=== PATIENT | male | born 1940 | race Caucasian/White ===

== ENCOUNTER 2018-12-09 09:10 | Emergency (ER) | payer OTHER ==
--- OUTSIDE RECORDS SUMMARY | 2018-12-09 09:12 | XMS REPORT | Clinical Summary ---
:1940 Author Organization [facility] Address [address] [place] [address] Care Team Providers Name Role Phone John Araujo MD Primary Care Provider Allergies Active Allergy Reactions Severity Noted Date Comments Codeine 11/06/2018 Medications Medication Sig Dispensed Refills Start Date End Date Status atorvastatin (LIPITOR) 20 Take 20 mg by 3 08/12/2018 Active MG tablet mouth daily. clonIDINE HCl (CATAPRES) 0 11/06/2018 Active 0.3 MG tablet fluticasone (FLONASE) 50 SPRAY 2 SPRAY BY 3 09/15/2018 Active mcg/actuation nasal spray INTRANASAL ROUTE EVERY DAY IN EACH NOSTRIL BREO ELLIPTA 100-25 USE 1 PUFF BY 3 10/17/2018 Active mcg/dose blister with MOUTH ONCE DAILY device powder for DIRECTED inhalation folic acid (FOLVITE) 1 MG Take 1 mg by 5 08/12/2018 Active tablet mouth daily. hydroCHLOROthiazide 0 11/01/2018 Active (HYDRODIURIL) 25 MG tablet montelukast (SINGULAIR) 0 11/02/2018 Active 10 mg tablet pantoprazole (PROTONIX) Take 40 mg by 3 08/17/2018 Active 40 MG EC tablet mouth daily. ranitidine (ZANTAC) 150 0 11/01/2018 Active MG capsule predniSONE (DELTASONE) 10 PLEASE SEE 0 11/01/2018 Active mg tablet ATTACHED FOR DETAILED DIRECTIONS sertraline (ZOLOFT) 25 MG 0 11/06/2018 Active tablet tamsulosin (FLOMAX) 0.4 Take by mouth 3 09/24/2018 Active mg capsule daily. irbesartan (AVAPRO) 300 0 11/01/2018 Active MG tablet azelastine 0.15 % (205.5 SPRAY 1 SPRAY BY 3 09/04/2018 Active mcg) spray,non-aerosol INTRANASAL ROUTE 2 TIMES EVERY DAY IN EACH NOSTRIL levocetirizine (XYZAL) 5 Take 5 mg by 0 Active MG tablet mouth every evening. Active Problems Problem Noted Date Acute right-sided low back pain without sciatica 11/06/2018 Encounters Date Type Specialty Care Team Description 11/06/2018 Office Visit Orthopedic Surgery Gianni Paiz Acute right- sided romeo HERNANDEZ MD back pain without sciatica (Primary Dx) after 12/08/2017 Family History Medical History Relation Name Comments Cancer Father Heart disease Mother Relation Name Status Comments Father Mother Social History Tobacco Use Types Packs/Day Years Used Date Former Smoker Sex Assigned at Date Recorded Not on file Job Start Date Occupation Industry Not on file Not on file Not on file Travel History Travel Start Travel End No recent travel history available. Last Filed Vital Signs Vital Sign Reading Time Taken Blood Pressure 166/98 11/06/2018 1:34 PM [facility] Pulse 64 11/06/2018 1:34 PM [employer] [employer] [facility] Temperature - - Respiratory Rate - - Oxygen Saturation - - Inhaled Oxygen Concentration - - Weight 83.9 kg (185 lb) 11/06/2018 1:34 PM [employer] [employer] [facility] Height 172.7 cm (5' 8") 11/06/2018 1:34 PM [employer] [employer] [facility] Body Mass Index 28.13 11/06/2018 1:34 PM [facility] Plan of Treatment Date Type Specialty Care Team Description 12/10/2018 Office Visit Orthopedic Surgery Gianni Paiz III, MD [address] [address] Health Maintenance Due Date Last Done Comments SHINGLES VACCINES (1 of 2) 1989 PNEUMOCOCCAL POLYSACCHARIDE VACCINE AGE 65 AND OVER 2004 PNEUMOCOCCAL-13 2004 INFLUENZA VACCINE 05/23/2018 Procedures Procedure Name Priority Date/Time Associated Diagnosis Comments XR LUMBAR SPINE Routine 11/06/2018 1:51 PM Acute right-sided Results for this COMPLETE 4+ VW [facility] [employer] [facility] low back pain procedure are in without sciatica the results section. after 12/08/2017 Results XR Lumbar Spine Complete 4+ Vw (11/06/2018 1:51 PM [facility] [employer] [facility]) Narrative Performed At Lumbar spine series with flexion-extension: Advanced lumbar spondylosis [facility] with loss of disc height at L3-4, L4-5 and, L5-S1.Spine stable on flexion-extension Performing Organization Address City/State/Zipcode Phone Number [facility] [address] [place] [address] after 12/08/2017 Insurance Payer Benefit Plan / Group Subscriber ID Type Phone Address AETNA MEDICARE AETNA MEDICARE HMO/PPO [facility] xxxxxxxx HMO Advance Directives Patient has advance care planning documents on file. For more information, please contact:Alan Cuellar[address] [place] [address]
--- OUTSIDE RECORDS SUMMARY | 2018-12-09 09:12 | XMS REPORT ---
:1940 [facility] Address [address] [place] [address] Dr. Knight [address] [place] [id number] Care Team Providers Name Role Phone Unavailable Unavailable Unavailable Problems This patient has no known problems. Allergies, Adverse Reactions, Alerts This patient has no known allergies or adverse reactions. Medications This patient has no known medications.
[2018-12-09 10:04] LABS: Urine Blood NEGATIVE (NEG); Urine Glucose NEGATIVE (NEG)
[2018-12-09 10:05] LABS: Urine Protein 1+ (NEG)
[2018-12-09] MEDS ORDERED: KETOROLAC 30 MG/ML INJ ONE (10:20)
[2018-12-09] MEDS ORDERED: CYCLOBENZAPRINE 10 MG TAB ONE (10:21)
[2018-12-09] MEDS ORDERED: HYDROCODONE/APAP 7.5/325 MG TAB ONE (10:21)
--- NOTE | 2018-12-09 11:01 | EDPHYS ---
Physician Documentation [facility] Name: Garth Sarkar Age: 78 yrs Sex: Male : 1940 Arrival Date: 12/09/2018 Time: 09:12 Bed 20 Private MD: ED Physician Frank Martinez HPI: 12/09 10:15 This 78 yrs old Male presents to ER via Wheelchair with complaints of Back cp Pain. 10:15 The patient presents with pain and spasm. The symptoms are located in the low back. cp Onset: The symptoms/episode began/occurred yesterday. Associated signs and symptoms: Pertinent negatives: abdominal pain, chest pain, constipation, fever, incontinence, numbness, tingling, urinary retention, weakness. 10:15 The pain does not radiate. The problem was sustained from unknown cause. Patient cp reports he has not taken blood pressure medications this morning. 10:15 Patient reports he has been taking prescribed tramadol and prednisone for pain. cp Historical: - Allergies: :31 Codeine; la1 - PMHx: 09:31 Hypertension; OA; la1 - Immunization history:: Adult Immunizations up to date. - Social history:: Smoking status: Patient/guardian denies using tobacco. - Ebola Screening: : No symptoms or risks identified at this time. ROS: 10:20 Constitutional: Negative for body aches, chills, fever, poor PO intake. cp 10:20 Eyes: Negative for injury, pain, redness, and discharge. cp 10:20 ENT: Negative for drainage from ear(s), ear pain, sore throat, difficulty swallowing, cp difficulty handling secretions. 10:20 Cardiovascular: Negative for chest pain, edema, palpitations. 10:20 Respiratory: Negative for cough, shortness of breath, wheezing. 10:20 Back: Positive for pain at rest, pain with movement, of the lumbar area, spasm. 10:20 Abdomen/GI: Negative for abdominal pain, nausea, vomiting, and diarrhea, constipation, cp black/tarry stool, rectal bleeding, bowel incontinence. 10:20 : Negative for urinary symptoms, urinary frequency, hematuria, bladder incontinence, testicular pain 10:20 Skin: Negative for cellulitis, rash. 10:20 Neuro: Negative for altered mental status, headache, numbness, tingling, weakness. 10:20 All other systems are negative. Exam: 10:25 Constitutional: The patient appears in no acute distress, alert, awake, cp non-diaphoretic, non-toxic, well developed, well nourished. 10:25 Head/Face: Normocephalic, atraumatic. cp 10:25 Eyes: Periorbital structures: appear normal, Conjunctiva: normal, no exudate, no cp injection, Sclera: no appreciated abnormality, Lids and lashes: appear normal, bilaterally. 10:25 ENT: External ear(s): are unremarkable, Nose: is normal, Mouth: Lips: moist, Oral mucosa: pink and intact, moist, Posterior pharynx: is normal, airway is patent, no erythema, no exudate. 10:25 Neck: ROM/movement: is normal, is supple, without pain, no range of motions limitations, no nuchal rigidity. 10:25 Chest/axilla: Inspection: normal, Palpation: is normal, no crepitus, no tenderness. 10:25 Cardiovascular: Rate: bradycardic, Rhythm: regular, Edema: is not appreciated. 10:25 Respiratory: the patient does not display signs of respiratory distress, Respirations: cp normal, no use of accessory muscles, no retractions, no splinting, no tachypnea. 10:25 Abdomen/GI: Inspection: abdomen appears normal, Bowel sounds: active, all quadrants, Palpation: abdomen is soft and non-tender, in all quadrants, voluntary guarding, is not appreciated, involuntary guarding, is not appreciated. 10:25 Back: pain, that is moderate, of the right mid back and right low back, ROM is painful, vertebral tenderness, is not appreciated, Straight leg raises: of both lower extremities does not illicit pain. 10:25 Musculoskeletal/extremity: Exam is negative for decreased range of motion, deformity, injury. 10:25 Skin: cellulitis, is not appreciated, no rash present. 10:25 Neuro: Orientation: to person, place \T\ time. Mentation: is normal, Cerebellar function: is grossly normal, Motor: moves all fours, strength is normal, Sensation: is normal, Gait: is steady, Deep tendon reflexes are 2+ (normal) in the right patellar, right Achilles, left patellar and left Achilles. Vital Signs: 09:35 Pulse 57; Resp 18; Temp 98.7; Pulse Ox 98% on R/A; Weight 83.91 kg; Height 5 ft. 8 in. la1 (172.72 cm); 09:35 BP 210 / 77; la1 10:00 BP 201 / 110; Pulse 78; Resp 18; Pulse Ox 99% on R/A; Pain 9/10; em 09:35 Body Mass Index 28.13 (83.91 kg, 172.72 cm) la1 10:00 has not taken morning medications em MDM: 09:47 Patient medically screened. cp 10:00 Differential diagnosis: Cholelithiasis chronic back pain, Pyelonephritis ruptured disc, cp Ureterolithiasis. 11:00 Data reviewed: vital signs, nurses notes, lab test result(s). cp 11:00 Counseling: I had a detailed discussion with the patient and/or guardian regarding: the cp historical points, exam findings, and any diagnostic results supporting the discharge/admit diagnosis, the presence of at least one elevated blood pressure reading (>120/80) during this emergency department visit, lab results, to return to the emergency department if symptoms worsen or persist or if there are any questions or concerns that arise at home. 11:00 Response to treatment: the patient's symptoms have markedly improved after treatment, cp and as a result, I will discharge patient. 11:00 ED course: VS noted. Discussed elevated blood pressure. Patient declines treatment for cp blood pressure in Ed and reports will take prescribed blood pressure meds when he gets home. Pain markedly improved. 12/09 09:53 Order name: Urine Dipstick--Ancillary (enter results); Complete Time: 10:57 ms 12/09 09:53 Order name: Urine Dipstick-Ancillary (obtain specimen); Complete Time: 09:56 cp Administered Medications: 10:14 Drug: TORadol 60 mg Route: IM; Site: right gluteus; em 11:00 Follow up: Response: No adverse reaction; Pain is decreased em 10:19 Drug: Flexeril 10 mg Route: PO; em 11:00 Follow up: Response: No adverse reaction; Pain is decreased em 10:19 Drug: Hydrocodone-Acetaminophen (7.5 mg-325 mg) 1 tabs Route: PO; em 11:00 Follow up: Response: No adverse reaction; Pain is decreased em Disposition: 17:42 Co-signature as Attending Physician, Frank Martinez MD. gs Disposition: 12/09/18 11:01 Discharged to Home. Impression: Low back pain, Hypertensive heart disease. - Condition is Stable. - Discharge Instructions: Back Pain, Adult, Back Exercises, [id number]. - Prescriptions for Diclofenac Sodium 75 mg Oral Tablet, Delayed Release (E.C.) - take 1 tablet by ORAL route 2 times per day; 20 tablet. orphenadrine citrate 100 mg Oral Tablet Sustained Release - take 1 tablet by ORAL route 2 times per day As needed; 20 tablet. - Medication Reconciliation Form, Thank You Letter, Antibiotic Education, Prescription Opioid Use form. - Follow up: Private Physician; When: 1 - 2 days; Reason: Recheck today's complaints. - Problem is an acute exacerbation. - Symptoms have improved. Signatures: Dispatcher [employer] EDRegan Brown LVN [employer] Brandon Barnhart RN RN la1 Vinny Kinney PA PA cp Starr, Gregory, MD MD Corrections: (The following items were deleted from the chart) 11:21 11:01 12/09/2018 11:01 Discharged to Home. Impression: Low back pain; Hypertensive em heart disease. Condition is Stable. Forms are Medication Reconciliation Form, Thank You Letter, Antibiotic Education, Prescription Opioid Use. Follow up: Private Physician; When: 1 - 2 days; Reason: Recheck today's complaints. Problem is an acute exacerbation. Symptoms have improved. cp
--- NOTE | 2018-12-09 11:01 | ER ---
Nurse's Notes [facility] Name: Garth Sarkar Age: 78 yrs Sex: Male : 1940 Arrival Date: 12/09/2018 Time: 09:12 Bed 20 Private MD: Diagnosis: Low back pain;Hypertensive heart disease Presentation: 12/09 09:31 Presenting complaint: Patient states: I have been having muscle spasms at home in my la1 back since yesterday, I have been on prednisone and tramamdol. I have been having trouble walking due to the pain. Transition of care: patient was not received from another setting of care. Onset of symptoms was December 09, 2018. Risk Assessment: Do you want to hurt yourself or someone else? Patient reports no desire to harm self or others. Initial Sepsis Screen: Does the patient meet any 2 criteria? No. Patient's initial sepsis screen is negative. Does the patient have a suspected source of infection? No. Patient's initial sepsis screen is negative. Care prior to arrival: None. 09:31 Method Of Arrival: Wheelchair la1 09:31 Acuity: OSBALDO 3 la1 Historical: - Allergies: 09:31 Codeine; la1 - PMHx: 09:31 Hypertension; OA; la1 - Immunization history:: Adult Immunizations up to date. - Social history:: Smoking status: Patient/guardian denies using tobacco. - Ebola Screening: : No symptoms or risks identified at this time. Screenin:00 Abuse screen: Denies threats or abuse. Nutritional screening: No deficits noted. em Tuberculosis screening: No symptoms or risk factors identified. Fall Risk None identified. Assessment: 10:00 General: Appears in no apparent distress. uncomfortable, Behavior is calm, cooperative. em Pain: Complains of pain in lumbar area Pain currently is 9 out of 10 on a pain scale. Quality of pain is described as crampy. Neuro: Level of Consciousness is awake, alert, obeys commands, Oriented to person, place, time, situation. Respiratory: Airway is patent Respiratory effort is even, unlabored, Respiratory pattern is regular, symmetrical. GI: Abdomen is flat, Patient currently denies nausea, vomiting. : Urine is clear, Denies burning with urination. Derm: Skin is intact, is healthy with good turgor, Skin is pink, warm \T\ dry. Musculoskeletal: Circulation, motion, and sensation intact. Capillary refill < 3 seconds, Denies numbness in, right leg and left leg. 10:15 Reassessment: Patient appears in no apparent distress at this time. I agree with above iw assessment by Regan Hidalgo LVN. 11:00 Reassessment: Patient appears in no apparent distress at this time. Patient and/or em family updated on plan of care and expected duration. Pain level reassessed. Patient is alert, oriented x 3, equal unlabored respirations, skin warm/dry/pink. cramping has diminished, rates pain 5/10 Patient states feeling better. Patient states symptoms have improved. Vital Signs: 09:35 Pulse 57; Resp 18; Temp 98.7; Pulse Ox 98% on R/A; Weight 83.91 kg; Height 5 ft. 8 in. la1 (172.72 cm); 09:35 BP 210 / 77; la1 10:00 BP 201 / 110; Pulse 78; Resp 18; Pulse Ox 99% on R/A; Pain 9/10; em 09:35 Body Mass Index 28.13 (83.91 kg, 172.72 cm) la1 10:00 has not taken morning medications em ED Course: 09:12 Patient arrived in ED. rg4 09:33 Triage completed. la1 09:33 Arm band placed on left wrist. la1 09:42 Regan Hidalgo LVN is Primary Nurse. em 09:46 Vinny Kinney PA is PHCP. cp 09:46 Frank Martinez MD is Attending Physician. cp 09:56 Urine Dipstick--Ancillary (enter results) Sent. mh5 10:00 Patient has correct armband on for positive identification. Call light in reach. Side em rails up X2. Adult w/ patient. Pulse ox on. NIBP on. 11:17 No provider procedures requiring assistance completed. Patient did not have IV access em during this emergency room visit. Administered Medications: 10:14 Drug: TORadol 60 mg Route: IM; Site: right gluteus; em 11:00 Follow up: Response: No adverse reaction; Pain is decreased em 10:19 Drug: Flexeril 10 mg Route: PO; em 11:00 Follow up: Response: No adverse reaction; Pain is decreased em 10:19 Drug: Hydrocodone-Acetaminophen (7.5 mg-325 mg) 1 tabs Route: PO; em 11:00 Follow up: Response: No adverse reaction; Pain is decreased em Outcome: 11:01 Discharge ordered by . cp 11:17 Discharged to home via wheelchair. em 11:17 Condition: good 11:17 Discharge instructions given to patient, family, Instructed on discharge instructions, follow up and referral plans. medication usage, Demonstrated understanding of instructions, follow-up care, medications, Prescriptions given X 2. 11:21 Patient left the ED. em Signatures: Regan Hidalgo, CAR SEAT MAKER CAR SEAT MAKER em Sheyla Mclain, RN RN Brandon Braun RN RN la1 Vinny Kinney PA PA Fior Goodrich [facility]
== END 2018-12-09 11:21 | disposition home or self-care (01) ==
LOC: ER 09:10
DX: I11.9 Hypertensive heart disease without heart failure (principal); I10 Essential (primary) hypertension; Z88.5 Allergy status to narcotic agent
CPT/HCPCS: 81003; 96372; 99284

== ENCOUNTER 2023-02-16 12:44 | Inpatient (IN) | payer OTHER ==
--- OUTSIDE RECORDS SUMMARY | 2023-02-16 12:47 | XMS REPORT | Clinical Summary ---
:1940 Author Organization [facility] MD [facility] Address [address] [place] [address] Care Team Providers Name Role Phone Chema Power MD Primary Care Provider John Araujo MD Unavailable Unavailable Jud Vera MD Unavailable [phone] Ish Still MD Unavailable Mehul Marx MD Unavailable Ish Still MD Unavailable Allergies No known active allergies Medications Medication Sig Dispensed Refills Start End Status Date Date azelastine (ASTELIN) Inhale 1 0 Active 137 mcg/spray nasal spray into spray each nostril twice daily. folic acid (FOLVITE) 1 Take 1 mg by 0 Active mg tablet mouth daily. irbesartan (AVAPRO) 300 Take 300 mg 0 Active mg tablet by mouth daily. potassium chloride Take 20 mEq 0 Active (K-DUR,KLOR-CON M) 20 by mouth mEq tablet twice daily. pantoprazole (PROTONIX) Take 40 mg 0 Active 40 mg EC tablet by mouth daily with breakfast. fluticasone (FLONASE) Inhale 1 0 12/29/19 Active 50 mcg/spray nasal spray (50 19 sprayIndications: High mcg) into grade B-cell lymphoma each nostril twice daily. levocetirizine (XYZAL) Take 5 mg by 0 Active 5 MG tablet mouth every evening. BREO ELLIPTA 200-25 TAKE 1 PUFF 0 03/12/20 Active mcg/dose BY MOUTH 20 EVERY DAY albuterol (VENTOLIN Inhale by 0 Active HFA,PROAIR HFA) 90 mouth. mcg/puff inhaler cyanocobalamin (VITAMIN Take 1,000 0 Active B-12) 1000 mcg tablet mcg by mouth daily. triamcinolone (KENALOG) Apply 80 g 2 12/15/19 Active 0.1% creamIndications: topically to 22 Psoriasiform dermatitis affected area(s) 2 (two) times a day as needed for rash. For the legs NIFEdipine (PROCARDIA TAKE 1 90 tablet 0 12/17/19 Active XL) 60 mg 24 hr TABLET BY 22 tabletIndications: MOUTH EVERY Hypertension DAY carvedilol (COREG) 6.25 TAKE 1 180 tablet 0 12/17/19 Active mg tabletIndications: TABLET (6.25 22 Hypertension, MG) BY MOUTH Paroxysmal atrial TWICE DAILY. fibrillation Eliquis 5 mg TAKE 1 180 tablet 0 12/17/19 Active tabletIndications: TABLET BY 22 Paroxysmal atrial MOUTH EVERY fibrillation 12 (TWELVE) HOURS. HOLD FOR PLATELETS LESS THAN 50 K/MM3 OR BLEEDING. atorvastatin (LIPITOR) TAKE 1 90 tablet 1 02/11/20 Active 20 mg TABLET BY 22 tabletIndications: MOUTH EVERY Dyslipidemia DAY famotidine (PEPCID) 40 TAKE 1 0 06/21/20 Active mg tablet TABLET BY 22 MOUTH EVERYDAY AT BEDTIME montelukast (SINGULAIR) TAKE 1 0 20 Active 10 mg tablet TABLET BY 22 MOUTH EVERYDAY AT BEDTIME ZINC ORAL Take by 0 Active mouth. calcium citrate Take by 0 Acti ve (CITRACAL) 950 mg (200 mouth daily. mg elemental) tablet L.acidophil/L.plantar/B Take by 0 Active ifido 7 (UP4 PROBIOTICS mouth. ADULT ORAL) tamsulosin (FLOMAX) 0.4 TAKE 2 180 capsule 3 08/05/20 Active mg 24 hr CAPSULES BY 22 capsuleIndications: MOUTH EVERY Enlarged prostate, not DAY otherwise specified fluticasone Inhale 1 0 06/16/ Disconti nued propion-salmeterol puff by 022 ( Therapy (ADVAIR) 100 mcg-50 mouth as completed) mcg/inhalation diskus needed. inhaler hydroCHLOROthiazide Take 25 mg 0 Discontinued (HYDRODIURIL) 25 mg by mouth 022 (Therapy tablet daily. completed) tamsulosin (Flomax) 0.4 Take 2 180 capsule 3 04/20/2003/24 Discontinued mg 24 hr capsules capsuleIndications: (0.8 mg) by Enlarged prostate, not mouth daily. otherwise specified predniSONE (DELTASONE) 0 09/07/20 Discontinued 10 mg tablet (Therap y completed) cefdinir (OMNICEF) 300 0 09/07/20 Discontinued mg capsule (Therapy completed) tamsulosin (FLOMAX) 0.4 TAKE 2 180 capsule 3 04/17/2007/23 Discontinued mg 24 hr CAPSULES BY (Reorder ) capsuleIndications: MOUTH EVERY Enlarged prostate, not DAY otherwise specified Active Problems Problem Noted Date Surveillance following treatment with high risk medica tion 06/02/2020 Last Assessment & Plan: Formatting of th is note might be different from the original. 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 His most recent echocardiogram was completed on 06/02/2020 and showed patient to have normal LV size and systo lic function with a LVEF of 58% and no s ignificant valvular disease. He currently denies any signs or symptoms of decompensated heart failure. We will therefore continue risk factor modifications and close monitoring. Slow transit constipation 04/12/2019 Bradycardia 04/01/2019 Last Assessment & Plan: Formatting of th is note might be different from the original. Bradycardia has resolved and his home BP and heart rate log shows heart rates in the 80s to 110s. Neuropathy 03/20/2019 Sinus bradycardia 02/05/2019 Paroxysmal atrial fibrillation 01/23/2019 Last Assessment & Plan: Formatting of th is note might be different from the original. History of atrial fibrillation. EKG comp leted today and showed sinus bradycardia with a heart rate of 52 bpm. He denies any fast heart rates or palpitations. He will therefore continue on his current me dication regimen with Carvedilol 6.25 mg PO BID. Given his elevated CHADS-VASc score of 5 due to his age, hypertension, and with history of DVT he will also continue on Eliquis 5 mg PO BID for stroke prophylaxis. He denies any abnormal bleeding. Dyslipidemia 01/22/2019 Last Assessment & Plan: Formatting of th is note might be different from the original. Lipid panel obtained on 12/03/2019 showe d patient to have a total cholesterol of 145, Trig of 128, HDL of 40, and LDL of 79. He will therefore continue his current therapy with Atorvastatin 20 mg PO nig htly. We will re-check his lipid panel o n 01/18/21 when he is back and [facility] for other visits. Labs reviewed and liver enzymes WNL. Hypertension 01/22/2019 Overview: Formatting of this note is dif ferent from the original. BP Readings from Last 3 Encounters: 01/22/19 102/71 01/19/19 136/68 01/14/19 110/64 Last Assessment & Plan: Blood pressure is well controlled with a reading of 135/74. He reports that he checks at home and his SBP runs in the 120-140's. He should therefore continue his current medication regimen at this time with Carvedilol 6.25 mg PO BID, Nifedipi ne 5 mg PO BID, and Hydrochlorothiazide 25 mg PO daily. His most recent lab work was reviewed and showed good kidney function. Gastroesophageal reflux disease 01/22/2019 Other specified preoperative examination 01/22/2019 Overview: 12/18/2018: EK, SB. Inferior infarc t, old. Prolonged QT interval 01/14/2019: CXR: IMPRESSION: Left PICC line with its distal tip over the SVC and without evident pneumothorax.. 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 Hemoglobin: 13.3 This is likely due to treatment effects. Recommend continuation of observation. Malignant neoplasm related fatigue 12/25/2018 Neoplasm related pain (acute) (chronic) 12/25/2018 High grade B-cell lymphoma 12/18/2018 Last Assessment & Plan: Formatting of th is note might be different from the original. Patient presents for lab review and clin ic assessment while on REPOCH s/p C1D16. Hemodynamically he is stable and does not require any interventions. Clinically he is stable and recommend continuation o f current regimen and follow up visits a s scheduled Follow up: 01/11/19 in [facility] Personal history of chemotherapy Chronic obstructive pulmonary disease Encounters Date Type Specialty Care Team Description 02/01/2023 Documentation Urology Ben Tarango RN 08/05/2022 Hospital Encounter Lab Gianni Guardado Elev ated prostate MD RIAN specific antige n (PSA) 08/05/2022 Office Visit Urology Gianni Guardado Encounter for screening for malignant neoplasm of prostate (Primary Dx); MD RIAN Gross hematuria ; Elevated prosta te specific antigen (PSA); Enlarged prosta te, not otherwise specified 08/05/2022 Hospital Encounter Lab Gianni Guardado Mark s hematuria MD RIAN 08/05/2022 Travel 07/28/2022 Telephone Dermatology Lara Maher MD 07/20/2022 Office Visit Dermatology Kameron Jung MD Actinic sulaiman tosis (Primary Dx); Personal histor y of other malignant neoplasm of skin; Neoplasm of unc ertain behavior of skin; Seborrheic sulaiman tosis; Other specified dermatitis 07/20/2022 Travel 07/11/2022 Orders Only Yifan Boogie Jr., PA (Primary Dx) 06/16/2022 Office Visit Lymphoma and Chema Power MD High grade B-cell Myeloma lymphoma 06/16/2022 Hospital Encounter Lab Chema Power MD High grade B-cell lymphoma 06/16/2022 Ancillary Procedure Radiology Irma Berry High grade B-cell INFANTRYMAN lymphoma 06/16/2022 Hospital Encounter Lab Irma Berry High grade B-cell INFANTRYMAN lymphoma 06/16/2022 Orders Only Radiology Gale Alexandra MD 06/16/2022 Travel 06/07/2022 Orders Only Urology Yifan Boogie Jr., PA (Primary Dx) 05/27/2022 Refill Cardiology Zahraa Quiroz Dyslipidem ia S, INFANTRYMAN 05/03/2022 Orders Only Radiology Mitch Alaniz PA 05/03/2022 Orders Only Lymphoma and Weeks, Irma, High grade B-cell Myeloma INFANTRYMAN lymphoma (Prima ry Dx) 04/12/2022 Refill Urology Yifan Boogie Enlarged prostate, Jr., PA not otherwise specified 03/11/2022 Telephone Cardiology Deangelo Oneal, MEENAKSHI 03/11/2022 Orders Only Cardiology Deangelo Oneal, MEENAKSHI 03/10/2022 Refill Cardiology Deangelo Oneal, Hypertensio n; INFANTRYMAN Paroxysmal atri al fibrillation after 02/16/2022 Surgical History Surgery Date Site/Laterality Comments APPENDECTOMY 10/23/1949 - 10/22/1950 COLONOSCOPY 10/23/2014 - Polyps 10/22/2015 KNEE ARTHROPLASTY 10/23/2014 - Left 10/22/2015 SHOULDER SURGERY 10/23/2007 - 10/22/2008 TONSILLECTOMY OK INSJ TUNNELED CTR VAD 02/04/2019 Chest/Right Procedu re: PORT-A-CATH W/SUBQ PORT AGE 4 YR/> PLACEMENT ; Surgeon: Shon Fallon MD; Lo cation: [facility]; Service : SURG ONC - PORT Medical devices from this surgery are in [facility] section. OK FLUORO CENTRAL VENOUS 02/04/2019 Neck/N/A Procedu re: FLUORO GUIDANCE ACCESS DEV PLACEMENT FOR CENTRAL VENOUS ACCESS DEVICE PLACEMENT , REPLACEMENT, OR REMOVAL; Surgeon: Shon Fallon MD; Location: [facility]; Service: SURG ON C - PORT Medical devices from this surgery are in [facility] section. OK US VASC ACCESS SITS VSL 02/04/2019 Neck/N/A Proce dure: US GUIDANCE PATENCY NDL ENTRY WITH EVAL OF P OTENTIAL ACCESS SITES, RE ALTIME US VISUALIZATION OF VASC NEEDLE ENTRY; Castaneda rgeon: Shon Fallon MD; Location: [facility]; Service: SURG ON C - PORT Medical devices from this surgery are in [facility] section. 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 2017 pressure ventilation Gastric reflux 2013 Benign prostatic hyperplasia 2012 Arthritis 2009 Depressive disorder 2009 no suicidal/ homicid al ideation 09/08/2020 Basal cell carcinoma of skin 1995 High grade B-cell lymphoma 12/18/2018 Deep venous thrombosis 2019 DVT, right arm Atrial fibrillation Chronic obstructive pulmonary disease Arrhythmia Current use of anticoagulant Personal history of chemotherapy Family History Medical History Relation Name Comments -Breast cancer Daughter 1 Judy Oconnor Treated at [facility] -Breast cancer Daughter 2 Misti Malave Treated at [facility] Lung cancer Father Chris Sarkar Hypertension Mother Stroke Mother -Breast cancer Sister Chante Santo Relation Name Status Comments Daughter 1 Judy Oconnor Daughter 2 Misti Wood Father Chris Sarkar Mother Sister Chante Santo Social History Tobacco Use Types Packs/Day Years Used Date Smoking Tobacco: Former Cigarettes 0.5 5 10/1989 - 10/23/1994 Smokeless Tobacco: Former Qu it: 11/27/2014 Alcohol Use Standard Drinks/Week Comments Yes 2 (1 standard drink = 0.6 oz pure alcoho l) Sex Assigned at Date Recorded Male 01/14/2022 9:49 AM CDT Job Start Date Occupation Industry Not on file Not on file Not on file Obstetrics History Last Filed Vital Signs Vital Sign Reading Time Taken Comments Blood Pressure 110/72 08/05/2022 10:01 AM CDT Pulse 97 08/05/2022 10:01 AM CDT Temperature 36.3 C (97.3 F) 08/05/2022 10:01 AM CDT Respiratory Rate 18 08/05/2022 10:01 AM CDT Oxygen Saturation 96% 08/05/2022 10:01 AM CDT Inhaled Oxygen Concentration - - Weight 80.9 kg (178 lb 5.6 oz) 08/05/2022 9:57 AM CDT Height 171 cm (5' 7.32") 08/05/2022 9:57 AM CDT Body Mass Index 27.67 08/05/2022 9:57 AM CDT Plan of Treatment Date Type Specialty Care Team Description 04/03/2023 Appointment Lab Irma Berry NP [address], [place] [address] (Melissa rk) 04/03/2023 Appointment Radiology Irma Berry NP [address], [place] [address] (Wo rk) 04/03/2023 Follow-Up Dermatology Kameron Jung MD [address], [place] [address] (Wo rk) 04/04/2023 Follow-Up Lymphoma and Myeloma Chema Power MD [address], [place] [address] (Wo rk) Health Maintenance Due Date Last Done Comments COVID-19 Vaccination (3 - Booster for 01/21/2021 11/26/2020 , 10/28/2020 Moderna series) Medical Devices Implanted Type Area Bank Advisor Device Identifier Shelf Model / Expiration Serial / Date Lot Bladimir Del Castillo 6fr - Sn/A Port Left: BARD PERIPHER AL [id number] 02/20/2020 [id number] / Implanted: Qty: 1 on 02/04/2019 by Shon Fallon MD at [facility] Internal VASCULAR N/A / Jugular [id number] Description: CATH. LENGTH - 29 CMS. Procedures Procedure Name Priority Date/Time Associated Comments Diagnosis PROSTATE SPECIFIC Routine 08/05/2022 11:00 Elevated prostate R esults for this ANTIGEN AM CDT specific antigen procedure a re in (PSA) the results section. URINALYSI W/REFLEX Routine 08/05/2022 9:03 Gross hematuria Res ults for this CULTURE AM CDT procedure are i n the results section. PATHOLOGY BIOPSY Routine 07/20/2022 2:11 Neoplasm of Results for this INTERPRETATION PM CDT uncertain behavior procedu re are in of skin the results section. VITAMIN D 25 HYDROXY Routine 06/16/2022 12:59 High grade B-fernanda l Results for this LEVEL PM CDT lymphoma procedure are i n the results section. IMMUNOGLOBULIN G SERUM Routine 06/16/2022 12:59 High grade B-c ell Results for this PM CDT lymphoma procedure are i n the results section. CT CHEST ABDOMEN PELVIS Routine 06/16/2022 8:56 High grade B-c ell Results for this W CONTRAST LYMPHOMA AM CDT lymphoma procedur e are in the results section. CT NECK W CONTRAST Routine 06/16/2022 8:56 High grade B-cell R esults for this LYMPHOMA AM CDT lymphoma procedure are i n the results section. CLOT EXPIRATION DATE Routine 06/16/2022 6:49 Resu lts for this AM CDT procedure are i n the results section. TMP INTERPRETATION Routine 06/16/2022 6:49 Result s for this ANTIBODY SCREEN NEGATIVE AM CDT pro cedure are in the results section. ANTIBODY SCREEN Routine 06/16/2022 6:49 High grade B-cell Resu lts for this AM CDT lymphoma procedure are i n the results section. ABORH Routine 06/16/2022 6:49 High grade B-cell Results for this AM CDT lymphoma procedure are i n the results section. .GLOMERULAR FILTRATION Routine 06/16/2022 6:49 High grade B-ce ll Results for this RATE AM CDT lymphoma procedure are i n the results section. SERUM CREATININE Routine 06/16/2022 6:49 High grade B-cell Res ults for this AM CDT lymphoma procedure are i n the results section. MANUAL DIFFERENTIAL Routine 06/16/2022 6:49 High grade B-cell Results for this AM CDT lymphoma procedure are i n the results section. Results CBC Routine 06/16/2022 6:49 High grade B-cell Results for this AM CDT lymphoma procedure are i n the results section. ELECTROLYTE PANEL Routine 06/16/2022 6:49 High grade B-cell Re sults for this AM CDT lymphoma procedure are i n the results section. ASPARTATE Routine 06/16/2022 6:49 High grade B-cell Results for this AMINOTRANSFERASE AM CDT lymphoma procedure a re in the results section. MAGNESIUM LEVEL Routine 06/16/2022 6:49 High grade B-cell Resu lts for this AM CDT lymphoma procedure are i n the results section. ALANINE AMINOTRANSFERASE Routine 06/16/2022 6:49 High grade B- cell Results for this AM CDT lymphoma procedure are i n the results section. LACTATE DEHYDROGENASE Routine 06/16/2022 6:49 High grade B-fernanda l Results for this AM CDT lymphoma procedure are i n the results section. ALKALINE PHOSPHATASE Routine 06/16/2022 6:49 High grade B-cell Results for this AM CDT lymphoma procedure are i n the results section. FRACTIONATED BILIRUBIN Routine 06/16/2022 6:49 High grade B-ce ll Results for this AM CDT lymphoma procedure are i n the results section. URIC ACID Routine 06/16/2022 6:49 High grade B-cell Results for this AM CDT lymphoma procedure are i n the results section. SERUM CREATININE Routine 06/16/2022 6:49 High grade B-cell AM CDT lymphoma BLOOD UREA NITROGEN Routine 06/16/2022 6:49 High grade B-cell Results for this AM CDT lymphoma procedure are i n the results section. GLUCOSE, RANDOM Routine 06/16/2022 6:49 High grade B-cell Resu lts for this AM CDT lymphoma procedure are i n the results section. PHOSPHORUS LEVEL Routine 06/16/2022 6:49 High grade B-cell Res ults for this AM CDT lymphoma procedure are i n the results section. CALCIUM LEVEL TOTAL Routine 06/16/2022 6:49 High grade B-cell Results for this AM CDT lymphoma procedure are i n the results section. ALBUMIN LEVEL Routine 06/16/2022 6:49 High grade B-cell Result s for this AM CDT lymphoma procedure are i n the results section. TOTAL PROTEIN Routine 06/16/2022 6:49 High grade B-cell Result s for this AM CDT lymphoma procedure are i n the results section. TYPE AND SCREEN Routine 06/16/2022 6:49 High grade B-cell AM CDT lymphoma COMPLETE BLOOD COUNT W/ Routine 06/16/2022 6:49 High grade B-c ell DIFFERENTIAL AM CDT lymphoma after 02/16/2022 Results (ABNORMAL) Prostate Specific Antigen (PSA) Screening (08/05/2022 11:00 AM CDT) athologist Signature PSA 6.2 (H) 0.0 - 4.0 ED [facility] ng/mL Comment: Results greater than 4519 ng/mL may not be reliable due to matrix effect with extended dilution as it exceeds the project asst's recommended limit. Caution should be exercised when interpreting such olga ues and done in conjunction with clinica l context. Testing Performed at [facility] [employer] [address], [address] [place] [address], [address], [place] [address] PSA Indication Screening ED [facility] Specimen Anatomical Collection Method Collection Time Receive d Time (Source) Location / / Volume Laterality Blood 08/05/2022 11:00 08/05/2022 AM CDT 11:09 AM CDT Gianni Guardado IV, MD LAB BLOOD ORDERABLES Performing Organization Address City/State/ZIP Code Phon e Number [address] [place] [address] [address] G Urinalysis (08/05/2022 9:03 AM CDT) Patholo gist Method Time Signature UA Color Straw Straw-Yel [facility] UA Appear Clear Clear [facility] UA Glucose NEG NEG mg/dL [facility] UA Bili NEG NEG [facility] UA Ketones NEG NEG mg/dL [facility] UA Spec Grav 1.012 1.003 - [place] MD 1.035 [facility] UA Blood NEG NEG [facility] UA pH 7.0 5.0 - 9.0 [facility] UA Protein NEG NEG mg/dL [facility] UA Urobilinogen NEG NEG [facility] UA Nitrite NEG NEG [facility] UA Leuk Est NEG NEG [facility] UA Comment See Comment [facility] Comment: No microscopic exam performed, physiochemical findings are negative Specimen Anatomical Collection Method Collection Time Receive d Time (Source) Location / / Volume Laterality Urine 08/05/2022 9:03 AM 9:38 CDT AM CDT Gianni Guardado IV, MD URINE ORDERABLES Performing Organization Address City/State/ZIP Code Phon e Number [facility] Unless otherwise noted, [address] all lab tests performed by: Division of Pathology and Laboratory Medicine [address] [place] [address] Pathology Biopsy Interpretation (07/20/2022 2:11 PM CDT) Component Value Ref Test Analysis Performed Pathologis t Range Method Time At Signature Submitted A: HAK vs SCC 07/21/2022 [facility] Clinical B: SCC vs HAK 1:22 PM History CDT Diagnosis A: Skin, right cheek, shave: 07/21/2022 [facility] Electronically Consistent with the superfic ial portion of an actinic keratosis with verrucous features, present at tissue edges. 1:22 PM signed by Kris Montes ala, B: Skin, right hand third digit, shave: on 07/21/2022 Hyperplastic actinic keratos is with verrucous features, present at tissue edges. at 1:22 PM Atypical cells extend to the base of the specimen. Squamous cell carcinoma is not completely ruled out. Gross A: 07/21/2022 [facility] Description Skin, a. r cheek : A 0.4 x 0 .2 x 0.1 cm, rey skin shave. The possible margin is inked, entirely submitted in A1. ET 1:22 PM CDT B: Skin, b. r hand third digit : A 0.6 x 0.6 x 0.3 cm, rey skin shave. There is a brown lesion on the skin, 0.3 x 0.3 cm. The specimen is inked, bisected, entirely submitted in B1. ET Disclaimer "Some tests 07/21/2022 [facility] reported here may 1:22 PM have been CDT developed and performance characteristics determined by [facility] and Laboratory Medicine. These tests have not been specifically cleared or approved by the U.S. Food and Drug Administration. If applicable, controls were reviewed and showed appropriate reactivity." Specimen Anatomical Collection Method Collection Time Receive d Time (Source) Location / / Volume Laterality Tissue (Skin) 07/20/2022 2:11 PM 07/20/20 22 2:53 CDT PM CDT Tissue (Skin) 07/20/2022 2:12 PM 07/20/20 22 2:53 CDT PM CDT Kameron Jung MD LAB PATHOLOGY ORDERABLES Performing Organization Address City/State/ZIP Code Phon e Number [facility] [address] [place] Vitamin D 25OH (06/16/2022 12:59 PM CDT) P athologist Signature Vitamin D 25 OH 30 30 - 100 [facility] ng/mL [facility] Comment: Reference Range: Deficiency: <10 ng/mL Insufficiency: 10-29 ng/mL Sufficiency: 30-100 ng/mL Potential toxicity: >100 ng/mL Specimen Anatomical Collection Method Collection Time Receive d Time (Source) Location / / Volume Laterality Blood 06/16/2022 12:59 06/16/2022 1:23 PM CDT PM CDT Chema Power MD LAB BLOOD ORDERABLES Performing Organization Address City/State/ZIP Code Phon e Number [facility] Unless otherwise noted, [address] all lab tests performed by: Division of Pathology and Laboratory Medicine [address] [place] [address] [place] IgG (06/16/2022 12:59 PM CDT) P athologist Signature IgG [id number] - 1,616 [facility] mg/dL [facility] Specimen Anatomical Collection Method Collection Time Receive d Time (Source) Location / / Volume Laterality Blood 06/16/2022 12:59 06/16/2022 1:33 PM CDT PM CDT Chema Power MD LAB BLOOD ORDERABLES Performing Organization Address City/State/ZIP Code Phon e Number [facility] Unless otherwise noted, [place] [address] [place] all lab tests performed by: Division of Pathology and Laboratory Medicine [address] [place] [address] Chest Abdomen Pelvis with Contrast Lymphoma (06/16/2022 8:56 AM CDT) Anatomical Region Laterality Modality Chest, Abdomen, Pelvis Computed Tomograp hy Specimen (Source) Anatomical Collection Method Collection Time Re ceived Time Location / / Volume Laterality 06/16/2022 9:10 AM CDT Impressions 06/16/2022 9:57 AM CDT 1. What appears to be a new sub-3 mm n odule is seen in the medial anterior left upper lobe on image 51 of series 5. Otherwise stable few scattered small pulmonary nodules and stable regions of periphe ral and predominantly basilar interstiti al changes. 2. No CT evidence of recurrent lympho ma. The spleen is of normal size. No adenopathy is identified within the chest, abdomen or pelvis. 3. On today's study, the bladder wall appears thickened though the bladder is notably underdistended today which alone may account for this finding. Nevertheless, advise correlation for possible signs and symptoms of cystitis. Narrative 06/16/2022 9:57 AM CDT Examination: CT CHEST ABDOMEN PELVIS W C ONTRAST LYMPHOMA, 06/16/2022 8:56 AM Clinical History: High grade B-cell lymp ferdinand Indication: 81M with lymphoma; restaging . Comparison: 06/23/2021 Technique: CT of the chest, abdomen, and pelvis was performed with intravenous contrast. Findings: CT OF THE CHEST: Lungs and pleura: * Again seen are interstitial changes that appear to be similar predominantly at the lung periphery and more probably seen at the lung bases. This constrains the ability to assess for small pulmonary lesions. * What appears to be a new sub-3 mm no dule left upper lobe image 51 series 5 is nonspecific. * Few scattered stable predominantly s ub 3mm pulmonary nodules, examples noted on the images, such as images 21, 24, 33, 37 of series 5. Lymph Nodes: No axillary, mediastinal, or hilar adeno bernadette. Heart/mediastinum: Atherosclerotic coronary artery calcific ations. Soft tissues: No acute soft tissue abnormality. Lines/tubes/devices: None. Thyroid: Again seen are several bilateral thyroid nodules, the largest seen on the right, measuring 14 mm with peripheral calcification that appears to be relatively stable when compared to studies dating back to 07/31/2019. Musculoskeletal: Degenerative changes of the spine. 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 Osteopenia. Again seen is chronic deformity of the superior endplate of T9. CT OF THE ABDOMEN AND PELVIS: Hepatobiliary: No suspicious liver findings. Gallbladder: Gallbladder is unremarkable. Spleen: Normal sized spleen. Pancreas: No intrinsic lesions. Normal diameter ma in duct. Genitourinary: Adrenals: Normal adrenal glands. Kidneys/Ureters: No hydronephrosis. Stable renal hypode nsities, the smaller of which are too small to characterize but the larger of which appear cystic and simple in appearance. These can be managed by follow-up. . The dominant finding arises from the l eft renal upper pole and measures 11.2 cm. Pelvis: Bladder: On today's study, the bladder wall appea rs thickened though the bladder is notably underdistended today which alone may account for this finding. Nevertheless, advise correlation for possible signs and symptoms of cystitis. Reproductive: Stable enlarged prostate measuring appro ximately 61 x 57 mm. Scattered diverticuli. No evidence of obstruction or adynamic i leus. The stomach is not notably distended. Peritoneal Cavity/Peritoneum: No suspicious peritoneal findings. Lymph Nodes: No suspicious carmela findings. Musculoskeletal/Soft Tissues: Degenerative changes of the spine. Osteo penia. Well-defined 16 mm sclerotic lesion at the roof of the left acetabulum image 264/4 is stable on examinations dating back to 07/31/2019. Other: No other notable findings. 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 Comparison: 06/23/2021 Technique: CT of the chest, abdomen, and pelvis was performed with intravenous contrast. Findings: CT OF THE CHEST: Lungs and pleura: * Again seen are interstitial changes th at appear to be similar predominantly at the lung periphery and more probably seen at the lung bases. This constrains the ability to assess for small pulmonary lesions. * What appears to be a new sub-3 mm nodu le left upper lobe image 51 series 5 is nonspecific. * Few scattered stable predominantly sub 3mm pulmonary nodules, examples noted on the images, such as images 21, 24, 33, 37 of series 5. Lymph Nodes: No axillary, mediastinal, or hilar adeno bernadette. Heart/mediastinum: Atherosclerotic coronary artery calcific ations. Soft tissues: No acute soft tissue abnormality. Lines/tubes/devices: None. Thyroid: Again seen are several bilateral thyroid nodules, the largest seen on the right, measuring 14 mm with peripheral calcification that appears to be relatively stable when compared to studies dating back to 07/31/2019. Musculoskeletal: Degenerative changes of the spine. 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 Osteopenia. Again seen is chronic deformity of the superior endplate of T9. CT OF THE ABDOMEN AND PELVIS: Hepatobiliary: No suspicious liver findings. Gallbladder: Gallbladder is unremarkable. Spleen: Normal sized spleen. Pancreas: No intrinsic lesions. Normal diameter ma in duct. Genitourinary: Adrenals: Normal adrenal glands. Kidneys/Ureters: No hydronephrosis. Stable renal hypodens ities, the smaller of which are too small to characterize but the larger of which appear cystic and simple in appearance. These can be managed by follow-up. . The dominant finding arises from the l eft renal upper pole and measures 11.2 cm. Pelvis: Bladder: On today's study, the bladder wall appea rs thickened though the bladder is notably underdistended today which alone may account for this finding. Nevertheless, advise correlation for possible signs and symptoms of cystitis. Reproductive: Stable enlarged prostate measuring appro ximately 61 x 57 mm. Scattered diverticuli. No evidence of obstruction or adynamic i leus. The stomach is not notably distended. Peritoneal Cavity/Peritoneum: No suspicious peritoneal findings. Lymph Nodes: No suspicious carmela findings. Musculoskeletal/Soft Tissues: Degenerative changes of the spine. Osteo penia. Well-defined 16 mm sclerotic lesion at the roof of the left acetabulum image 264/4 is stable on examinations dating back to 07/31/2019. Other: No other notable findings. IMPRESSION: 1. What appears to be a new sub-3 mm nod ule is seen in the medial anterior left upper lobe on image 51 of series 5. Otherwise stable few scattered small pulmonary nodules and stable regions of peripheral and predominantly basilar interstitial mercado es. 2. No CT evidence of recurrent lymphoma. The spleen is of normal size. No adenopathy is identified within the chest, abdomen or pelvis. 3. On today's study, the bladder wall ap pears thickened though the bladder is notably underdistended today which alone may account for this finding. Nevertheless, advise correlation for possible signs and symptoms of cystitis. Irma Weeks INFANTRYMAN IMG CT ORDERABLES CT Neck with Contrast Lymphoma (06/16/2022 8:56 AM CDT) Anatomical Region Laterality Modality Neck Computed Tomography Specimen (Source) Anatomical Collection Method Collection Time Re ceived Time Location / / Volume Laterality 06/16/2022 11:39 AM CDT Impressions 06/16/2022 11:[address] evidence of active lymphoma in the neck. 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 Technique: Axial images were acquired th rough the soft tissues of the neck with intravenous contrast. Findings: There is no significant cervical adenopa thy or suspicious abnormalities within the aerodigestive tract. Stable lobulated rim calcified nodule in the right superior thyroid lobe. Smaller mixed attenuation nodules in the thyroid isthmus are also unchanged. No enhancing lesions within the visualiz ed brain or orbits. Stable mucosal thickening in the base of the left maxillary sinus. No destructive osseous lesions. 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 Technique: Axial images were acquired th rough the soft tissues of the neck with intravenous contrast. Findings: There is no significant cervical adenopa thy or suspicious abnormalities within the aerodigestive tract. Stable lobulated rim calcified nodule in the right superior thyroid lobe. Smaller mixed attenuation nodules in the thyroid isthmus are also unchanged. No enhancing lesions within the visualiz ed brain or orbits. Stable mucosal thickening in the base of the left maxillary sinus. No destructive osseous lesions. IMPRESSION: No CT evidence of active lymphoma in the neck. Irma INFANTRYMAN IMG CT ORDERABLES Glucose, Random (06/16/2022 6:49 AM CDT) athologist Signature Glucose Random 124 70 - 199 [place] [facility] mg/dL [facility] Comment: Effective 05/18/16, the glucose reference intervals have been updated based on [place] [employer] guidelines (Standards of Medical Care in Diabetes 2016. Diabetes Care 2016; 39: S13-S22). Fasting blood glucose: Normal: 70-99 mg/dL Impaired fasting glucose (increased risk for diabetes or pre-diabetes): 100- 125 mg/dL Diabetes mellitus: >/=126 mg/dL Random blood glucose: Normal: 70-199 mg/dL Note: Random glucose >100 mg/dL is assoc iated with increased risk for diabetes Specimen Anatomical Collection Method Collection Time Receive d Time (Source) Location / / Volume Laterality Blood 06/16/2022 6:49 AM 2 7:01 CDT AM CDT [facility] INFANTRYMAN LAB BLOOD ORDERABLES Performing Organization Address City/[facility] Phon e Number [facility] Unless otherwise noted, [address] all lab tests performed by: Division of Pathology and Laboratory Medicine [address] [place] [address] (ABNORMAL) .Serum Creatinine (06/16/2022 6:49 AM CDT) athologist Signature Creatinine 1.19 (H) 0.67 - 1.17 [facility] mg/dL [facility] Specimen Anatomical Collection Method Collection Time Receive d Time (Source) Location / / Volume Laterality Blood 06/16/2022 6:49 AM 2 7:01 CDT AM CDT [facility] INFANTRYMAN LAB BLOOD ORDERABLES Performing Organization Address City/[facility] Phon e Number [facility] Unless otherwise noted, [address] all lab tests performed by: Division of Pathology and Laboratory Medicine [facility] [place] (ABNORMAL) .CBC (06/16/2022 6:49 AM CDT) P athologist Signature WBC 6.0 4.0 - 11.0 [facility] K/uL RBC 4.49 (L) 4.50 - 6.00 [facility] M/uL Hgb 14.0 14.0 - 18.0 [facility] gm/dL Comment: As part of CBC or as an individ ual orderable testing performed at [facility] Lab Museum Exhibit Technician Bl, [address] , [address], [place] [id number] Hct 42.4 40.0 - 54.0 % ED [facility] Comment: As part of CBC or as an individ ual orderable testing performed at [facility], [address] , [address], [place] [address] MCV 94 82 - 98 fL [facility] MCH 31.2 (H) 27.0 - 31.0 pg [facility] MCHC 33.0 31.0 - 36.0 gm/dL [facility] RDW-SD 46.5 (H) 35.1 - 46.3 fL [facility] RDW-CV 13.3 12.0 - 15.5 % [facility] Platelet count 211 140 - 440 K/uL [facility] Comment: As part of CBC or as an individ ual orderable testing performed at [facility], [address] , [address], [place] [address] MPV 9.2 4.0 - 10.4 fL [facility] INRBC 0.0 <=0.0 % [facility] Comment: The INRBC (instrument NRBC) value reflec ts the enumeration of nucleated red blood cells contained i n a 200uL sample of whole blood analyzed by the instrumen t. This value may differ from the NRBC value reported in a manual differential, which is based on a 100 cell differentia l. As part of CBC testing performed at [facility] [address], [address], [place] [address] Specimen Anatomical Collection Method Collection Time Receive d Time (Source) Location / / Volume Laterality Blood 06/16/2022 6:49 AM 6:55 CDT AM CDT Irma Berry INFANTRYMAN LAB BLOOD ORDERABLES Performing Organization Address City/State/ZIP Code Phon e Number [address] [place] [address] [address] Clot Expiration Date (06/16/2022 6:49 AM CDT) [facility] [place] [facility] gist Method Time Signature T & S 06/19/2022 [place] [facility] Specimen Anatomical Collection Method Collection Time Receive d Time (Source) Location / / Volume Laterality Blood 06/16/2022 6:49 AM 7:11 CDT AM CDT Irma Berry NP BLOOD BANK TEST ORDERABLES Performing Organization Address City/State/ZIP Code Phon e Number [place] [facility] Unless otherwise noted, [place] [address] CENTER all lab tests performed by: Division of Pathology and Laboratory Medicine [address] (ABNORMAL) Glomerular Filtration Rate (06/16/2022 6:49 AM CDT) P athologist Signature eGFR-AA 65 >=60 [place] [facility] mL/min/1.73 [facility] CENTER sq. m Comment: Normal eGFR: >= 60 mL/min/1.73 m2 Note: The eGFR is calculated using the C KD-EPI equation. The eGFR declines with age. eGFR <60 mL/min/1.73 m2 is considered as "decreased". This equation should only be used for patients 18 and older. According to the National Kidney Foundat ion's Kidney Disease Outcome Quality Initiative (KDOQI) classification and 2012 Kidney Disease Improving Global Outcomes (KDIGO) Clinical Practice Guideline, the stage of CKD should be categorized based on estimated GFR. Stage Description GFR mL/min/1. 73 m2 1 Normal or high GFR >=90 2 Mildly decreased GFR 60-89 3a Mildly to moderately decreased GFR 45-59 3b Moderately to severely decreased GFR 30-44 4 Severely decreased GFR 15-29 5 Kidney failure <15 eGFR-APRIL 56 (L) >=60 mL/min/1.73 sq. m [place] MD Doran [facility] Comment: Normal eGFR: >= 60 mL/min/1.73 m2 Note: The eGFR is calculated using the C KD-EPI equation. The eGFR declines with age. eGFR <60 mL/min/1.73 m2 is considered as "decreased". This equation should only be used for patients 18 and older. According to the National Kidney Found[employer] ion's Kidney Disease Outcome Quality Initiative (KDOQI) classification and 2012 Kidney Disease Improving Global Outcomes (KDIGO) Clinical Practice Guideline, the stage of CKD should be categorized based on estimated GFR. Stage Description GFR mL/min/1. 73 m2 1 Normal or high GFR >=90 2 Mildly decreased GFR 60-89 3a Mildly to moderately decreased GFR 45-59 3b Moderately to severely decreased GFR 30-44 4 Severely decreased GFR 15-29 5 Kidney failure <15 Specimen Anatomical Collection Method Collection Time Receive d Time (Source) Location / / Volume Laterality Blood 06/16/2022 6:49 AM 2 7:01 CDT AM CDT Irma Berry INFANTRYMAN LAB BLOOD ORDERABLES Performing Organization Address City/[facility]/ZIP Code Phon e Number [facility] Unless otherwise noted, [address] all lab tests performed by: Division of Pathology and Laboratory Medicine [address] [place] [address] Fractionated Bilirubin (06/16/2022 6:49 AM CDT) athologist Signature Bili Total 0.5 <=1.2 mg/dL [facility] Comment: Indocyanine Green (ICG) may cause falsel y elevated bilirubin results. Total and direct bilirubin must not be measured from samples containing indocyanine green. False elevation of total bilirubin can b e seen in patients with IgG concentrations above 28 g/L. Bili Direct <0.2 <=0.3 mg/dL [facility] Comment: Indocyanine Green (ICG) may cau se falsely elevated bilirubin results. Total and direct bilirubin must not be measure d from samples containing indocyanine green. Bili Indirect See Note 0.0 - 0.9 mg/dL [place] [facility] Comment: Unable to calculate Indirect Bi lirubin result due to some parameters are outside reportable range Specimen Anatomical Collection Method Collection Time Receive d Time (Source) Location / / Volume Laterality Blood 06/16/2022 6:49 AM 2 7:01 CDT AM CDT Irma Berry INFANTRYMAN LAB BLOOD ORDERABLES Performing Organization Address City/[facility] Code Phon e Number [facility] Unless otherwise noted, [address] all lab tests performed by: Division of Pathology and Laboratory Medicine [address] [place] [address] [place] TMP Interpretation Antibody Screen Negative (06/16/2022 6:49 AM CDT) [facility] [place] [facility] gist Method Time Signature TMP Auto Neg At the [place] [facility] patient plasma shows no evidence of RBC alloantibodi es. Comment: MD Larissa FRYE [id number] Dictated by: ALEXANDER SMITH MD - 1200 6 Dictated Date/Time: 06.16.2022 11:20 AM CDT Transcribed Date/Time: 06.16.2022 11:20 AM CDT Electronically Signed By: MD Larissa VIEIRA [id number] on 06.16.2022 11:20 AM Specimen Anatomical Collection Method Collection Time Receive d Time (Source) Location / / Volume Laterality Blood 06/16/2022 6:49 AM 2 7:11 CDT AM CDT Irma Weeks INFANTRYMAN BLOOD BANK TEST ORDERABLES Performing Organization Address City/State/ZIP Code Phon e Number [facility] Unless otherwise noted, [address] all lab tests performed by: Division of Pathology and Laboratory Medicine [address] [place] [address] [place] ABORh (06/16/2022 6:49 AM CDT) athologist Signature ABORh. O POS [facility] Specimen Anatomical Collection Method Collection Time Receive d Time (Source) Location / / Volume Laterality Blood 06/16/2022 6:49 AM 2 7:11 CDT AM CDT [facility] B[facility]OD [facility] TEST ORDERABLES Performing Organization Address City/State/ZIP [facility] Phon e Number [facility] Unless otherwise noted, [address] all lab tests performed by: Division of Pathology and Laboratory Medicine [address] [place] [address] [place] (ABNORMAL) Differential (06/16/2022 6:49 AM CDT) athologist Signature Neutrophil % 58.5 42.0 - 66.0 [facility] % Comment: As part of Differential perform ed at [facility] Lab Museum Exhibit Technician [facility], [facility], [place] [id number] 0 Lymphocyte % 26.7 24.0 - 44.0 % [facility] Monocyte % 12.3 (H) 2.0 - 7.0 % [facility] Eosinophil % 1.7 1.0 - 4.0 % [facility] Basophil % 0.5 0.0 - 1.0 % [facility] IGRE % 0.3 0.0 - 0.4 % ED [facility] Comment: IGRE % count includes Metamyelocytes, My elocytes, and Promyelocytes. As part of Differential performed at [facility] Lab Museum Exhibit Technician Bl, [address] [place] [address], [address], [place] [id number] Neutrophil Abs 3.48 1.70 - 7.30 K/uL [facility] Lymphocyte Abs 1.59 1.00 - 4.80 K/uL [facility] Monocyte Abs 0.73 (H) 0.08 - 0.70 K/uL [facility] Eosinophil Abs 0.10 0.04 - 0.40 K/uL [facility] Basophil Abs 0.03 0.00 - 0.10 K/uL [facility] IG Abs 0.02 0.00 - 0.04 K/uL [facility] Specimen Anatomical Collection Method Collection Time Receive d Time (Source) Location / / Volume Laterality Blood 06/16/2022 6:49 AM 2 6:55 CDT AM CDT [facility]OD ORDER[facility]LES Performing Organization Address City/State/ZIP Code Phon e Number ED [facility] [address] [place] [address] [address] Antibody Screen (06/16/2022 6:49 AM CDT) athologist [facility] ABSC. Negative ABSC [facility] Specimen Anatomical Collection Method Collection Time Receive d Time (Source) Location / / Volume Laterality Blood 06/16/2022 6:49 AM 2 7:11 CDT AM CDT [facility] BLO[facility] TEST ORDERABLES Performing Organization Address City/State/ZIP Code Phon e Number [facility] Unless otherwise noted, [place] [address] CENTER all lab tests performed by: Division of Pathology and Laboratory Medicine [address] [place] [address] [place] Uric Acid (06/16/2022 6:49 AM CDT) athologist [facility] Uric Acid 5.5 3.4 - 7.0 [facility] mg/dL [facility] CENTER Specimen Anatomical Collection Method Collection Time Receive d Time (Source) Location / / Volume Laterality Blood 06/16/2022 6:49 AM 2 7:01 CDT AM CDT Irma Weeks INFANTRYMAN LAB BLOOD ORDERABLES Performing Organization Address City/State/ZIP [facility] Phon e Number [facility] Unless otherwise noted, [address] all lab tests performed by: Division of Pathology and Laboratory Medicine [facility] José Colbertd BUN (06/16/2022 6:49 AM CDT) P athologist Signature BUN 18 6 - 23 [facility] mg/dL [facility] Specimen Anatomical Collection Method Collection Time Receive d Time (Source) Location / / Volume Laterality Blood 06/16/2022 6:49 AM 2 7:01 CDT AM CDT Irma Weeks INFANTRYMAN LAB BLOOD ORDERABLES Performing Organization Address City/[facility]/ZIP [facility] Phon e Number [facility] Unless otherwise noted, [address] all lab tests performed by: Division of Pathology and Laboratory Medicine [address] [place] [address] [place] Alanine Aminotransferase (06/16/2022 6:49 AM CDT) P athologist Signature ALT 13 <=41 U/L [facility] Specimen Anatomical Collection Method Collection Time Receive d Time (Source) Location / / Volume Laterality Blood 06/16/2022 6:49 AM 2 7:01 CDT AM CDT Irma Weeks INFANTRYMAN LAB BLOOD ORDERABLES Performing Organization Address City/[facility]/ZIP Code Phon e Number [facility] Unless otherwise noted, [address] all lab tests performed by: Division of Pathology and Laboratory Medicine [address] [place] [address] [place] Aspartate Aminotransferase (06/16/2022 6:49 AM CDT) P athologist Signature AST 21 <=40 U/L [facility] Specimen Anatomical Collection Method Collection Time Receive d Time (Source) Location / / Volume Laterality Blood 06/16/2022 6:49 AM 2 7:01 CDT AM CDT Irma Weeks INFANTRYMAN LAB BLOOD ORDERABLES Performing Organization Address City/State/ZIP Code Phon e Number [facility] Unless otherwise noted, [address] all lab tests performed by: Division of Pathology and Laboratory Medicine [facility]5 [place]T [place] Total Protein (06/16/2022 6:49 AM CDT) athologist Signature Total Protein 6.4 6.4 - 8.3 [facility] g/dL [facility] Specimen Anatomical Collection Method Collection Time Receive d Time (Source) Location / / Volume Laterality Blood 06/16/2022 6:49 AM 2 7:01 CDT AM CDT [facility] BLOOD ORDERABLES Performing Organization Address City/State/ZIP Code Phon e Number [facility] Unless otherwise noted, [address] all lab tests performed by: Division of Pathology and Laboratory Medicine [address] [place] Phosphorus Level (06/16/2022 6:49 AM CDT) athologist Signature Phosphorus 3.1 2.5 - 4.5 [facility] mg/dL [facility] Specimen Anatomical Collection Method Collection Time Receive d Time (Source) Location / / Volume Laterality Blood 06/16/2022 6:49 AM 2 7:01 CDT AM CDT [facility] INFANTRYMAN LAB BLOOD ORDERABLES Performing Organization Address City/[facility]/ZIP Code Phon e Number [facility] Unless otherwise noted, [address] all lab tests performed by: Division of Pathology and Laboratory Medicine [facility] [address] [place] Alkaline Phosphatase (06/16/2022 6:49 AM CDT) athologist Signature Alk Phos 74 40 - 129 [facility] U/L [facility] [facility]ENTER Specimen Anatomical Collection Method Collection Time Receive d Time (Source) Location / / Volume Laterality Blood 06/16/2022 6:49 AM 2 7:01 CDT AM CDT [facility] INFANTRYMAN LAB BLOOD ORDERABLES Performing Organization Address City/[facility]/ZIP Code Phon e Number [facility] CANCER Unless otherwise noted, [address] all lab tests performed by: Division of Pathology and Laboratory Medicine [address] [place] Magnesium Level (06/16/2022 6:49 AM CDT) athologist Signature Magnesium 2.1 1.6 - 2.6 [facility] mg/dL [facility] Specimen Anatomical Collection Method Collection Time Receive d Time (Source) Location / / Volume Laterality Blood 06/16/2022 6:49 AM 2 7:01 CDT AM CDT Irma Berry INFANTRYMAN LAB BLOOD ORDERABLES Performing Organization Address City/[facility]/ZIP Code Phon e Number [facility] CANCER Unless otherwise noted, [address] all lab tests performed by: Division of Pathology and Laboratory Medicine [address] [place] (ABNORMAL) LDH (06/16/2022 6:49 AM CDT) athologist Signature LDH 241 (H) 135 - 225 [facility] U/L [facility] Comment: Results greater than 1651 U/L m ay not be reliable due to matrix effect with extended dilution as it exceeds the manu facturer's recommended limit. Caution should be exercised when interpreting such valu es and done in conjunction with clinical context. Specimen Anatomical Collection Method Collection Time Receive d Time (Source) Location / / Volume Laterality Blood 06/16/2022 6:49 AM 2 7:01 CDT AM CDT [facility] INFANTRYMAN LAB BLOOD ORDERABLES Performing Organization Address City/[facility]/ZIP [facility] Phon e Number [facility] CANCER Unless otherwise noted, [address] all lab tests performed by: Division of Pathology and Laboratory Medicine [address] [place] Calcium Level (06/16/2022 6:49 AM CDT) athologist [facility] Calcium Lvl 8.9 8.4 - 10.2 [facility] mg/dL [facility] Specimen Anatomical Collection Method Collection Time Receive d Time (Source) Location / / Volume Laterality Blood 06/16/2022 6:49 AM 2 7:01 CDT AM CDT [facility] INFANTRYMAN LAB BLOOD ORDERABLES Performing Organization Address City/[facility]/ZIP [facility] Phon e Number [facility] CANCER Unless otherwise noted, [address] all lab tests performed by: Division of Pathology and Laboratory Medicine [address] [place] Albumin Level (06/16/2022 6:49 AM CDT) athologist Signature Albumin Lvl 4.2 3.5 - 5.2 [facility] gm/dL [facility] CENTER Specimen Anatomical Collection Method Collection Time Receive d Time (Source) Location / / Volume Laterality Blood 06/16/2022 6:49 AM 2 7:01 CDT AM CDT Irma Berry INFANTRYMAN LAB BLOOD ORDERABLES Performing Organization Address City/State/ZIP Code Phon e Number [facility] CANCER Unless otherwise noted, [address] all lab tests performed by: Division of Pathology and Laboratory Medicine [address] [place] [address] [place] Electrolyte Panel (06/16/2022 6:49 AM CDT) athologist Signature Sodium Lvl 139 136 - 145 [facility] mEq/L [facility] Potassium Lvl 4.1 3.5 - 5.1 [facility] mEq/L [facility] Chloride 103 98 - 107 [facility] mEq/L [facility] CO2 28 22 - 29 [facility] mEq/L [facility] Anion Gap 8 4 - 14 [facility] mEq/L [facility] Specimen Anatomical Collection Method Collection Time Receive d Time (Source) Location / / Volume Laterality Blood 06/16/2022 6:49 AM 2 7:01 CDT AM CDT Irma Berry INFANTRYMAN LAB BLOOD ORDERABLES Performing Organization Address City/[facility]/ZIP [facility] Phon e Number [facility]CER Unless otherwise noted, [address] all lab tests performed by: Division of Pathology and Laboratory Medicine [facility] Josébebe Oliver after 02/16/2022 Insurance Payer Benefit Plan / Subscriber ID Effective Dates Phone Addre ss Type Group [employer] MEDICARE AETNA MEDICARE [id number] 2021-Presen [address] [place] [address] Advance Directives Code Status Date Activated Date Inactivated Comments Full Code 04/09/2019 7:17 PM 04/14/2019 4:51 PM Code Status Date Activated Date Inactivated Comments Full Code 03/19/2019 5:31 PM 03/24/2019 7:05 PM Full Code 02/25/2019 7:16 PM 03/02/2019 5:28 PM Full Code 02/04/2019 7:27 PM 02/10/2019 12:49 PM Full Code 02/04/2019 7:27 PM 02/04/2019 7:27 PM Care Teams 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 Operator Helper Relationship Specialty Start Date End Date Chema Power MD PCP - General Lymphoma and Myeloma 12/18/[address] [place] [id number] John Araujo, PCP - External Primary Internal Medicine 9 MD Care Provider [address] [place] [id number] Ish Still MD PCP - External Follow Dermatology 04/13/[address] [place] [address] [place] [address] Deonte Hyman, Hematology 12/20/18 Jud Matthews MD [address] [place] [address] Ish Still MD Physician Dermatology 11/06/[address] [place] [id number] Mehul Marx MD Physician Plastic and 11/28/[address] [place] [address] [place] [address]
--- OUTSIDE RECORDS SUMMARY | 2023-02-16 12:51 | XMS REPORT | Continuity of Care Document ---
:1940 Author Organization [facility] t Address [address] [place] [address] Care Team Providers Name Role Phone Pcp, Patient Does Not Have A Primary Care Physician [phone] SYSTEM, PROVIDER NOT IN Attending Clinician Unavailable Sarbjit Duran MD Attending Clinician Darien Niño MD Attending Clinician [phone] 9 Germain Attending Clinician Unavailable Ben Tarango RN Attending Clinician Unavailable ELAN_Katrin_Ashok Attending Clinician Unavailable GIANNI GUARDADO IV Attending Clinician Unavailable Gianni Guardado MD Attending Clinician WAYLON MORFIN Attending Clinician Unavailable Lara Maher MD Attending Clinician Unavailable Kameron Jung MD Attending Clinician KAMERON JUNG Attending Clinician Unavailable Yifan Gastelum Attending Clinician MEIR PALACIOS Attending Clinician Unavailable LAILA NAPIER Attending Clinician Unavailable Laila Napier DO Attending Clinician Shawnee Vizcarra Attending Clinician Carli VARELA, Renee Perrin Attending Clinician Unavailable ORTIZ GARNICA Attending Clinician Unavailable Nahun FRIEDMAN, Ortiz Attending Clinician Doctor Unassigned, [place] Attending Clinician Unavailable CHEMA MATHUR Attending Clinician Unavailable Kevan VASQUEZ, Chema Petit Attending Clinician KRISTI, CHRISTIE Attending Clinician Unavailable Kristi CAP CUTTER, Christie Attending Clinician Nasrin VASQUEZ, Gale Attending Clinician Richie CAP CUTTER, Zahraa Hill Attending Clinician Katty PA, Mitch Silver Attending Clinician Jm ARRIETA, Deangelo Attending Clinician Unavailable TAMERA COULTER Attending Clinician Unavailable MD MARJ ORTEZ Attending Clinician Unavailable SHAWNEE MO Attending Clinician Unavailable John VARELA, Roberta Attending Clinician Unavailable Only, Ang Db Test Attending Clinician Unavailable Lina Barlow MD Attending Clinician LINA BARLOW Attending Clinician Unavailable SID LAZCANO Attending Clinician Unavailable BENJI SHAH Attending Clinician Unavailable ASHA SHAH Attending Clinician Unavailable DEANGELO COON Attending Clinician Unavailable REBECCA DAVENPORT Attending Clinician Unavailable SARBJIT DURAN Admitting Clinician Unavailable Germain Admitting Clinician Unavailable ELAN_Francie Admitting Clinician Unavailable TAMERA COULTER Admitting Clinician Unavailable MD MARJ ORTEZ Admitting Clinician Unavailable BENJI SHAH Admitting Clinician Unavailable Payers Payer Name Policy Type Policy Number Effective Date Expiration Date Liz munoz [employer]ET[employer] (MEDICARE [id number] 2014 REPLACEMENT PPO) 00:00:00 [employer] MANAGED [id number] 2020 MEDICARE PPO-SHAVON 00:00:00 Problems Condition Condition Condition Status Onset Resolution Last Treating Co mments Source Name Details Category Date Date Treatment Clinician Date Microscopi Microscopi Problem Active [place] c c 3-31 [facility] hematuria Hematuria 00:00: Urol ogy 00 Pain of Pain of Problem Active 2021-10 Chante right knee Right Knee 2-29 Or thope joint Joint 00:00: dic 00 Sports Medicin e Osteoarthr Osteoarthr Problem Active 2021-10 Andreea bragg itis of itis of 2-29 Orthope right knee Right Knee 00:00: di c joint Joint 00 Sports Medicin e Multifocal Multifocal Disease Active M ethodi pneumonia pneumonia 3- st 00:00: Hospita 00 l Disorder Disorder Problem Active 2019-10 Azale a of lower of Lower 2-03 Orthop e leg Leg 00:00: dic 00 Sports Medicin e Contractur Contractur Problem Active 2019-10 A zalea e of e of 2-03 Orthope Achilles Achilles 00:00: dic tendon Tendon 00 Sports Medicin e Surveillan Surveillan Disease Active Last U nivalberto ce ce 8 Assessmen ity of following following 00:00: t & Plan: [place] treatment treatment 00 Rocael Solorzano D with high with high g of this Andreea nderso risk risk note n medication medication might be Cancer different Center from the original. 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 His most recent echocardi ogram was completed on 06/02/2020 and showed patient to have normal LV size and systolic function with a LVEF of 58% and no significa nt valvular disease. He currently denies any signs or symptoms of decompens ated heart failure. We will therefore continue risk factor modificat ions and close monitorin g. Slow Slow Disease Active Univers transit transit 6-21 ity of constipati [place] on [facility] Bradycardi Bradycardi Disease Active Last U nivers a a 6-10 Assessmen ity of 00:00: t & Plan: [place] Rocael VASQUEZ g of this Anderso note n might be Cancer different Center from the original. Bradycard ia has resolved and his home BP and heart rate log shows heart rates in the 80s to 110s. Neuropathy Neuropathy Disease Active U nivers 5-29 ity of 00:00: [place] 00 MD [facility] Sinus Sinus Disease Active Univers bradycardi bradycardi 4-16 it y of a a 00:00: [place] 00 MD [facility] Paroxysmal Paroxysmal Disease Active Last U nivers atrial atrial 4-03 Assessmen ity of fibrillati fibrillati 00:00: t & Plan: [place] on Rocael casey of this Andalbertoo note n might be Cancer different Center from the original. History of atrial fibrillat ion. EKG completed today and showed sinus bradycard ia with a heart rate of 52 bpm. He denies any fast heart rates or palpitati ons. He will therefore continue on his current medicatio n regimen with Carvedilo l 6.25 mg PO BID. Given his elevated CHADS-VAS c score of 5 due to his age, hypertens ion, and with history of DVT he will also continue on Eliquis 5 mg PO BID for stroke prophylax is. He denies any abnormal bleeding. Dyslipidem Dyslipidem Disease Active Last U nivers ia ia 01-22 Assessmen ity of 00:00: t & Plan: [place] Rocael casey of this Andalbertoo note n might be Cancer different Center from the original. Lipid panel obtained on 0 showed patient to have a total cholester ol of 145, Trig of 128, HDL of 40, and LDL of 79. He will therefore continue his current therapy with Atorvasta tin 20 mg PO nightly. We will re-check his lipid panel on 01/18/21 when he is back and MDA for other visits. Labs reviewed and liver enzymes WNL. Hypertensi Hypertensi Disease Active Overview : [facility] [place] on 01-22 Formattin ity of 00:00: g of this [place] note is MD barbara Casiano from the n original. Cancer BP Center Readings from Last 3 Encounter s: 01/22/19 102/71 01/19/19 136/68 01/14/19 110/64 Last Assessmen t & Plan: Rocael casey of this note might be different from the original. Blood pressure is well controlle d with a reading of 135/74. He reports that he checks at home and his SBP runs in the 120-140's . He should therefore continue his current medicatio n regimen at this time with Carvedilo l 6.25 mg PO BID, Nifedipin e 5 mg PO BID, and Hydrochlo rothiazid e 25 mg PO daily. His most recent lab work was reviewed and showed good kidney function. Gastroesop Gastroesop Disease Active U nivers hageal hageal 01-22 ity of reflux reflux 00:00: [place] disease disease 00 MD [facility] Other Other Disease Active Overview: Univer s specified specified 01-22 Formattin i ty of preoperati preoperati 00:00: g of this [place] ve ve 00 note examinatio examinatio might be [place] n n different n from the Cancer original. Center 9: EK, SB. Inferior infarct, old. Prolonged QT interval0 01/14/2019 : CXR: IMPRESSIO N:Left PICC line with its distal tip over the SVC and without evident pneumotho rax.. Encounter Encounter Disease Active Overview: Univers for long for long 01-22 Formattin ity of term term 00:00: g of this [place] current current 00 note use of use of might be Andalbertoo anticoagul anticoagul different n ants ants from the Cancer original. 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 Hemoglobi n: 13.3This is likely due to treatment effects. Recommend continuat ion of observati on. Malignant Malignant Disease Active Uni vers neoplasm neoplasm 3-05 ity of related related 00:00: [place] fatigue fatigue 00 MD [facility] Neoplasm Neoplasm Disease Active Unive rs related related 3-05 ity of pain pain 00:00: [place] (acute) (acute) 00 (chronic) (chronic) [facility] High grade High grade Disease Active Last U nivers B-cell B-cell 2 Assessmen ity of lymphoma lymphoma 00:00: t & Plan: [place] as 00 Rocael casey of this Andalbertoo note n might be Cancer different Center from the original. Patient presents for lab review and clinic assessmen t while on REPOCH s/p C1D16. Hemodynam ically he is stable and does not require any intervent ions. Clinicall y he is stable and recommend continuat ion of current regimen and follow up visits as scheduled Follow up: 01/11/19 in [place] Lumbar Lumbar Disease Active [facility] spine spine 2-20 st tumor tumor 00:00: Hospita 00 l Mass of Mass of Disease Active [facility] spine spine 2-20 st 00:00: Hospita 00 l Acute Acute Disease Active [facility] right-side right-side 1-15 st d low back d low back 00:00: Ho spita pain pain 00 l without without sciatica sciatica Arteriopat Arteriopat Problem Active 2017-10 [place] hic hic 2-03 [facility] impotence Impotence 00:00: Urol ogy 00 Urgent Urgent Problem Active [address] desire to Desire to 7-24 Metr o urinate Urinate 00:00: Urology 00 Raised Raised Problem Active [address] prostate Prostate 7-24 [facility] specific Specific 00:00: Urolog y antigen Antigen 00 Benign Benign Problem Active [address] prostatic Prostatic 7-24 Metr o hyperplasi Hyperplasi 00:00: Ur ology a without a without 00 outflow Outflow obstructio Obstructio n n Leroy Leroy Problem Active [address] hematuria Hematuria 2-15 Metr o 00:00: Urology 00 Large Large Problem Active [address] prostate Prostate 2-15 Metro 00:00: Urology 00 Total knee Total Knee Problem Active 2014-10 A zalea replacemen Replacemen 1-12 Or thope t t 00:00: dic 00 Sports Medicin e Swelling Swelling Problem Active 2014-10 Azale a of finger of Finger 0-12 Orth ope 00:00: dic 00 Sports Medicin e Osteoarthr Osteoarthr Problem Active A zalea itis of itis of 3-06 Orthope knee Knee 00:00: dic 00 Sports Medicin e No known No known Disease Unive rs active active ity of problems problems [facility] [place] [facility] Personal Personal Disease Active Unive rs history of history of it y of chemothera chemothera [place] py [facility] Chronic Chronic Disease Active Univers obstructiv obstructiv it y of e e [place] pulmonary pulmonary [facility] disease [facility] Allergies, Adverse Reactions, Alerts Allergy Allergy Status Severity Reaction(s) Onset Inactive Treating Comm ents Source Name Type Date Date Clinician Codeine Allergy Active Chante to 12-26 Orthope substanc 00:00: dic e 00 Sports Medicin e NO KNOWN Drug Active Univers ALLERGIE Class ity of S [facility] [place] [facility] Family History Family Member Diagnosis Comments Start Date Stop Date Source Natural [facility] -[facility] Natural father Lung cancer Universit y [facility] MD Santos [facility] Natural father Cancer [facility] Natural mother Hypertension Universi ty [facility] MD Santos [facility] Natural mother Stroke [facility] Natural mother Heart disease [facility] Natural sister -Breast cancer Univer sity [facility] Social History Social Habit Start Date Stop Date Quantity Comments Source Gender identity [facility] Sexual orientation [facility] History of Social 2023-02-14 2023-02-14 [facility] function 00:00:00 00:00:00 Hospital Exposure to 2022-06-27 2022-07-07 Yes University of SARS-CoV-2 (event) 00:00:00 18:52:00 [facility] [place] [facility] Alcohol intake 2021-05-16 2021-05-16 Current drinker Unive rsity of 00:00:00 00:00:00 of alcohol [facility] Cigarettes smoked 2019-11-27 2019-11-27 Univers ity of current (pack per 00:00:00 00:00:00 Jonathan Santos ) - Reported Cancer Ce nter Cigarette 2019-11-27 2019-11-27 University of pack-years 00:00:00 00:00:00 [facility] Tobacco use and 2018-10-04 2018-10-04 Smokeless Universit y of exposure 00:00:00 00:00:00 tobacco non-user [facility] History of tobacco 2014-11-27 User of Univer sity of use 00:00:00 smokeless [facility] tobacco [facility] Sex Ass[birth year] J[employer]ism 00:00:00 00:00:00 Hospital Smoking Status Start Date Stop Date Source Unknown if ever smoked [facility] Ex-smoker 2018-11-06 00:00:00 2018-11-06 00:00:00 [facility] Never smoked [facility] Medications Ordered Filled Start Stop Current Ordering Indication Dosage Frequency Signature Comments Components Source Medication Medication Date Date Medication? Clinician (SIG) Name Name levocetiriz Yes 5mg QD Take 1 Meth lucinda ine (XYZAL) 4-25 tablet (5 st 5 MG tablet 12:58: mg total) H ospita 24 by mouth l every evening. potassium 0 Yes 20meq Q.5D Take 2 Metho di chloride 4-[address] (K-DUR) 10 12:58: (20 mEq Hosp judy MEQ CR 24 total) by l tablet mouth 2 (two) times a day. apixaban 0 Yes 5mg Q.5D Take 1 [facility] (ELIQUIS) 5 4-25 tablet (5 st mg tablet 12:58: mg total) Hos laurie 24 by mouth 2 l (two) times a day. cyanocobala 0 Yes 1000ug QD Take 1 Me thodi min 4-[address] (VITAMIN 12:58: (1,000 mcg Hos laurie B-12) 1000 24 total) by l MCG tablet mouth daily. carvediloL 0 2022- No 6.25mg Q.5D Take 1 Me thodi (COREG) 4-25 04-[address] 6.25 MG 09:46: 00:00 (6.25 mg Hospi ta tablet 56 :00 total) by l mouth 2 (two) times a day with meals. Probiotic 3 Probiotic 3 No 1capsul Q1D Probiotic Phillips billion billion 1-18 e(s) 3 billion Metr o cell cell 00:00: cell Urology capsule 1 capsule 1 00 capsule 1 capsule capsule capsule every day every day every day by oral by oral by oral route. route. route. Vitamin Vitamin 2022-0 No 1 Q1D Vitamin [place] B-12 1,000 B-12 1,000 1-18 B-12 1,000 [facility] mcg tablet mcg tablet 00:00: mcg tablet Urology 1 tablet 1 tablet 00 1 tablet every day every day every day by oral by oral by oral route. route. route. Vitamin C Vitamin C No 1 Q1D Vitamin C [place] 500 mg 500 mg 1-18 500 mg [facility] tablet 1 tablet 1 00:00: tablet 1 U rology tablet tablet 00 tablet every day every day every day by oral by oral by oral route. route. route. zinc 50 mg zinc 50 mg 2022-0 No 1 Q1D zinc 50 mg [place] tablet 1 tablet 1 1-18 tablet 1 Met ro tablet tablet 00:00: tablet Urology every day every day 00 every day by oral by oral by oral route. route. route. Probiotic 3 Probiotic 3 No 1capsul Q1D Probiotic [address] billion billion 1-18 e(s) 3 billion Metr o cell cell 00:00: cell Urology capsule 1 capsule 1 00 capsule 1 capsule capsule capsule every day every day every day by oral by oral by oral route. route. route. Vitamin Vitamin No 1 Q1D Vitamin [place] B-12 1,000 B-12 1,000 1-18 B-12 1,000 [facility] mcg tablet mcg tablet 00:00: mcg tablet Urology 1 tablet 1 tablet 00 1 tablet every day every day every day by oral by oral by oral route. route. route. Vitamin C Vitamin C No [address] Vitamin C [address] 500 mg 500 mg 1-18 500 mg [facility] tablet 1 tablet 1 00:00: tablet 1 U rology tablet tablet 00 tablet every day every day every day by oral by oral by oral route. route. route. zinc 50 mg zinc 50 mg No 1 Q1D zinc 50 mg [place] tablet 1 tablet 1 1-18 tablet 1 Met ro tablet tablet 00:00: tablet Urology every day every day 00 every day by oral by oral by oral route. route. route. ipratropium ipratropium 2021-10 No 3mL TID ipratropiu [place] 0.5 0.5 2-27 m 0.5 [facility] mg-albutero mg-albutero 00:00: mg-albuter Urology l 3 mg (2.5 l 3 mg (2.5 00 ol 3 mg mg base)/3 mg base)/3 (2.5 mg mL mL base)/3 mL nebulizatio nebulizatio nebulizati n soln 3 mL n soln 3 mL on soln 3 3 times a 3 times a mL 3 times day by day by a day by inhalation inhalation inhalation route. route. route. ipratropium ipratropium 2021-[address] No 3mL TID ipratropiu [address] 0.5 0.5 2-27 m 0.5 Metro mg-albutero mg-albutero 00:00: mg-albuter Urology l 3 mg (2.5 l 3 mg (2.5 00 ol 3 mg mg base)/3 mg base)/3 (2.5 mg mL mL base)/3 mL nebulizatio nebulizatio nebulizati n soln 3 mL n soln 3 mL on soln 3 3 times a 3 times a mL 3 times day by day by a day by inhalation inhalation inhalation route. route. route. ZINC ORAL 2021-10 Yes Take by Unive rs 0-14 mouth. ity of 10:29: Jonathan 15 [facility] calcium 2021-10 Yes Take by Univers citrate 0-14 mouth ity of (CITRACAL) 10:29: daily. Jonathan 950 mg (200 15 mg Oh elemental) n tablet Cancer Center L.acidophil 2021-10 Yes Take by Uni vers /L.plantar/ 0-14 mouth. ity of Bifido 7 10:29: Jonathan (UP4 15 PROBIOTICS [place] ADULT ORAL) Cancer Center azelastine 2021-10 Yes 1{spray Inhale 1 Univers (ASTELIN) 0-14 } spray into ity of 137 10:26: each [place] mcg/spray 43 nostril nasal spray twice Anderso daily. n Cancer Center folic acid 2021-10 Yes 1mg Take 1 mg Un suman (FOLVITE) 1 0-14 by mouth ity of mg tablet 10:26: daily. Jonathan 43 MD [facility] irbesartan 2021-10 Yes 300mg Take 300 Un suman (AVAPRO) 0-14 mg by ity of 300 mg 10:26: mouth [place] tablet 43 daily. MD [facility] potassium 2021-10 Yes 20meq Take 20 Univ ers chloride 0-14 mEq by ity of (K-DUR,KLOR 10:26: mouth [place] -CON M) 20 43 twice mEq tablet daily. [facility] pantoprazol 2021-10 Yes 40mg Take 40 mg Univers e 0-14 by mouth ity of (PROTONIX) 10:26: daily with [place] 40 mg EC [address] breakfast. [address] [facility] levocetiriz 2021-10 Yes 5mg Take 5 mg U nivers ine (XYZAL) 0-14 by mouth ity of 5 MG tablet 10:26: every [place] [address] [facility] albuterol 2021-10 Yes Inhale by Uni vers (VENTOLIN 0-14 mouth. ity of HFA,PROAIR 10:26: [place] HFA) 90 43 mcg/puff [facility] inhaler [facility] cyanocobala 2021-10 Yes 1000ug Take 1,000 Univers min 0-14 mcg by ity of (VITAMIN 10:26: mouth [place] B-12) 1000 43 daily. mcg tablet [facility] tamsulosin 2021-10 Yes Enlarged TAKE 2 U nivers (FLOMAX) 0-14 prostate, CAPSULES it y of 0.4 mg 24 00:00: not BY MOUTH [place] hr capsule 00 otherwise EVERY DAY MD specified [facility] famotidine Yes TAKE 1 Unive rs (PEPCID) 40 8-30 TABLET BY ity of mg tablet 00:00: MOUTH [place] 00 EVERYDAY MD AT BEDTIME [facility] fluticasone 2021- No 1{puff} Inhale 1 Univers propion-shimon 8-25 08-25 puff by ity of meterol 12:27: 00:00 mouth as [place] (ADVAIR) 46 :00 needed. 100 mcg-50 Anderso mcg/inhalat n ion diskus Cancer inhaler Center hydroCHLORO 2021- No 25mg Take 25 mg Univers thiazide 8-25 08-25 by mouth ity of (HYDRODIURI 12:27: 00:00 daily. Donald as L) 25 mg 23 :00 MD tablet [facility] montelukast Yes TAKE 1 Univ ers (SINGULAIR) 8-13 TABLET BY ity of 10 mg 00:00: MOUTH [place] tablet 00 EVERYDAY MD AT BEDTIME [facility] famotidine famotidine No [address] 40 mg (Dis) 40 mg (Dis) 7-13 40 mg [facility] tablet 1 tablet 1 00:00: (Dis) Urol ogy tablet tablet 00 tablet 1 every day every day tablet by oral by oral every day route. route. by oral route. famotidine famotidine 0 No [address] 40 mg (Dis) 40 mg (Dis) 7-13 40 mg [facility] tablet 1 tablet 1 00:00: (Dis) Urol ogy tablet tablet 00 tablet 1 every day every day tablet by oral by oral every day route. route. by oral route. fluticasone fluticasone No 1puff(s Q1D fluticason [place] furoate 200 furoate 200 7-13 ) e furoate [facility] mcg-vilante mcg-vilante 00:00: 200 Urology rol 25 rol 25 00 mcg-vilant mcg/dose mcg/dose misti 25 inhalation inhalation mcg/dose powder 1 powder 1 inhalation puff every puff every powder 1 day by day by puff every inhalation inhalation day by route. route. inhalation route. tamsulosin 2021- No Enlarged TAKE 2 Univers (FLOMAX) 6-26 10-14 prostate, CAPSULES i ty of 0.4 mg 24 00:00: 00:00 not BY MOUTH [place] as hr capsule 00 :00 otherwise EVERY DAY MD lozoya [facility] atorvastati Yes Dyslipidemi TAKE 1 Univers n (LIPITOR) 4-21 a TABLET BY ity of 20 mg 00:00: MOUTH [place] tablet 00 EVERY DAY [facility] sod phos Yes 1{tbl} QD Take 1 Metho di di, mono-K 3-[address] phos mono 00:00: mouth Hospita (PHOSPHA 00 daily. l 250 NEUTRAL) 250 mg tablet per tablet azithromyci 0 Yes [id number] 250mg Take 1 Univers n 250 mg 3-26 tablet by ity of tablet 00:00: mouth [place] 00 daily. [facility] azithromyci Yes [id number] 250mg Take 1 Univers n 250 mg 3-26 tablet by ity of tablet 00:00: mouth [place] 00 daily. [facility] azithromyci Yes [id number] 250mg Take 1 Univers n 250 mg 3-26 tablet by ity of tablet 00:00: mouth [place] 00 daily. [facility] azithromyci Yes [id number] 250mg Take 1 Univers n 250 mg 3-26 tablet by ity of tablet 00:00: mouth [place] 00 daily. [facility] azithromyci Yes [id number] 250mg Take 1 Univers n 250 mg 3-26 tablet by ity of tablet 00:00: mouth [place] 00 daily. [facility] azithromyci Yes [id number] 250mg Take 1 Univers n 250 mg 3-26 tablet by ity of tablet 00:00: mouth [place] 00 daily. [facility] azithromyci Yes [id number] 250mg Take 1 Univers n 250 mg 3-26 tablet by ity of tablet 00:00: mouth [place] 00 daily. [facility] azithromyci Yes [id number] 250mg Take 1 Univers n 250 mg 3-26 tablet by ity of tablet 00:00: mouth [place] 00 daily. [facility] amoxicillin 2021- No [id number] 1{tbl} Take 1 Univers -clavulanat 3-26 04-03 tablet by it y of e 875-125 00:00: 04:59 mouth 2 [place] mg per 00 :00 (two) Medical tablet times [place] daily for 7 days. amoxicillin 2021- No [id number] 1{tbl} Take 1 Univers -clavulanat 3-26 04-03 tablet by it y of e 875-125 00:00: 04:59 mouth 2 [place] mg per 00 :00 (two) Medical tablet times [place] daily for 7 days. NIFEdipine Yes Hypertensio TAKE 1 Univers (PROCARDIA 2-25 n TABLET BY ity of XL) 60 mg 00:00: MOUTH [place] 24 hr 00 EVERY DAY MD garcia [facility]ke n [facility] carvedilol Yes Paroxysmal 6.25mg TAKE 1 Univers (COREG) 2-25 atrial TABLET ity of 6.25 mg 00:00: fibrillatio (6.25 MG) [place] tablet 00 n BY MOUTH TWICE [facility] DAILY. n Cancer Center Eliquis 5 Yes Paroxysmal TAKE 1 Univers mg tablet 2-25 atrial TABLET BY ity of 00:00: fibrillatio MOUTH [place] 00 n EVERY 12 (TWELVE) Oh HOURS. n HOLD FOR Cancer PLATELETS Center LESS THAN 50 K/MM3 OR BLEEDING. triamcinolo Yes Psoriasifor Apply Univers ne 2-23 m topically ity of (KENALOG) 00:00: dermatitis to [place] 0.1% cream 00 affected MD area(s) 2 [place] (two) n times a Cancer day as Center needed for rash. For the legs predniSONE 2020-10- No Univer s (DELTASONE) 11-07- ity of 10 mg 00:00: 00:00 [place] tablet 00 :00 MD [facility] cefdinir 2020-10- No Univers (OMNICEF) 11-07 08-25 ity of 300 mg 00:00: 00:00 [place] capsule 00 :00 MD [facility] tamsulosin 2021- No Enlarged .8mg Take 2 Univers (Flomax) 04-20 06-26 prostate, capsules i ty of 0.4 mg 24 00:00: 00:00 not (0.8 mg) [place] as hr capsule 00 :00 otherwise by mouth MD specified daily. [facility] Ventolin Ventolin No 1puff(s Ventolin [address] HFA 90 HFA 90 1-13 ) HFA 90 [facility] mcg/actuati mcg/actuati 00:00: mcg/actuat Urology on aerosol on aerosol 00 ion inhaler 1 inhaler 1 aerosol puff as puff as inhaler 1 needed by needed by puff as inhalation inhalation needed by route. route. inhalation route. Ventolin Ventolin No 1puff(s Ventolin [address] HFA 90 HFA 90 1-13 ) HFA 90 [facility] mcg/actuati mcg/actuati 00:00: mcg/actuat Urology on aerosol on aerosol 00 ion inhaler 1 inhaler 1 aerosol puff as puff as inhaler 1 needed by needed by puff as inhalation inhalation needed by route. route. inhalation route. BREO Yes TAKE 1 [facility] ELLIPTA 5-21 PUFF BY ity of 200-25 00:00: MOUTH [place] mcg/dose 00 EVERY DAY MD Oh frias [facility] fluticasone 2019-0 Yes High grade 50ug Inhale 1 [facility] (FLONASE) 3-08 B-cell spray (50 ity of 50 00:00: [place] mcg[place] mcg/spray 00 each nasal spray nostril Eric so twice n daily. [facility] diclofenac 2019-0 Yes 75mg Take 1 Unive rs 75 mg EC 1-28 tablet by ity of tablet 00:00: mouth (two) Medical times Branch daily with meals. diclofenac 2019-0 Yes 75mg Take 1 Unive rs 75 mg EC 1-28 tablet by ity of tablet 00:00: mouth (two) Medical times Branch daily with meals. diclofenac 2019-0 Yes 75mg Take 1 Unive rs 75 mg EC 1-28 tablet by ity of tablet 00:00: mouth (two) Medical times Branch daily with meals. diclofenac 2019-0 Yes 75mg Take 1 Unive rs 75 mg EC 1-28 tablet by ity of tablet 00:00: mouth (two) Medical times Branch daily with meals. diclofenac 2019-0 Yes 75mg Take 1 Unive rs 75 mg EC 1-28 tablet by ity of tablet 00:00: mouth (two) Medical times Branch daily with meals. diclofenac 2019-0 Yes 75mg Take 1 Unive rs 75 mg EC 1-28 tablet by ity of tablet 00:00: mouth (two) Medical times Branch daily with meals. diclofenac 2019-0 Yes 75mg Take 1 Unive rs 75 mg EC 1-28 tablet by ity of tablet 00:00: mouth (two) Medical times Branch daily with meals. diclofenac 2019-0 Yes 75mg Take 1 Unive rs 75 mg EC 1-28 tablet by ity of tablet 00:00: mouth (two) Medical times Branch daily with meals. diclofenac 2019-0 Yes 75mg Take 1 Unive rs 75 mg EC 1-28 tablet by ity of tablet 00:00: mouth 2 (two) Medical times Branch daily with meals. sertraline 2018-2022- No 25mg QD Take 1 Meth lucinda (ZOLOFT) 25 1-15 04-25 tablet (25 s t MG tablet 00:00: 00:00 mg total) [facility] spita 00 :00 by mouth l daily. montelukast Yes 10mg QD Take 1 Meth lucinda (SINGULAIR) 1-11 tablet (10 st 10 mg 00:00: mg total) [facility]ospita tablet 00 by mouth l nightly. ranitidine Yes 150mg Q.5D Take 1 Meth lucinda (ZANTAC) 1-[address] 150 MG 00:00: (150 mg [facility]ospita capsule 00 total) by l mouth 2 (two) times a day. irbesartan Yes 300mg QD Take 1 Meth lucinda (AVAPRO) 1-[address] 300 MG 00:00: (300 mg Hospita tablet 00 total) by l mouth daily. BREO 2017-10 Yes USE 1 PUFF [facility] ELLIPTA 2-[address] 100-25 00:00: ONCE DAILY Hospi ta mcg/dose 00 l blister DIRECTED with device powder for inhalation methylPREDN 2017-10 Yes Take by Uni vers ISolone 2-14 mouth ity of (MEDROL, 00:00: SEE-INSTRU Donald as TUSHAR,) 4 mg 00 CTIONS. Medica l tablets follow Branch package directions methylPREDN 2017-10 Yes Take by Uni vers ISolone 2-14 mouth ity of (MEDROL, 00:00: SEE-INSTRU Donald as TUSHAR,) 4 mg 00 CTIONS. Medica l tablets follow Branch package directions methylPREDN 2017-10 Yes Take by Uni vers ISolone 2-14 mouth ity of (MEDROL, 00:00: SEE-INSTRU Donald as TUSHAR,) 4 mg 00 CTIONS. Medica l tablets follow Branch package directions methylPREDN 2017-10 Yes Take by Uni vers ISolone 2-14 mouth ity of (MEDROL, 00:00: SEE-INSTRU Donald as TUSHAR,) 4 mg 00 CTIONS. Medica l tablets follow Branch package directions methylPREDN 2017-10 Yes Take by Uni vers ISolone 2-14 mouth ity of (MEDROL, 00:00: SEE-INSTRU Donald as TUSHAR,) 4 mg 00 CTIONS. Medica l tablets follow Branch package directions methylPREDN 2017-10 Yes Take by Uni vers ISolone 2-14 mouth ity of (MEDROL, 00:00: SEE-INSTRU Donald as TUSHAR,) 4 mg 00 CTIONS. Medica l tablets follow Branch package directions methylPREDN 2017-10 Yes Take by Uni vers ISolone 2-14 mouth ity of (MEDROL, 00:00: SEE-INSTRU Donald as TUSHAR,) 4 mg 00 CTIONS. Medica l tablets follow Branch package directions methylPREDN 2017-10 Yes Take by Uni vers ISolone 2-14 mouth ity of (MEDROL, 00:00: SEE-INSTRU Donald as TUSHAR,) 4 mg 00 CTIONS. Medica l tablets follow Branch package directions methylPREDN 2017-10 Yes Take by Uni vers ISolone 2-14 mouth ity of (MEDROL, 00:00: SEE-INSTRU Donald as TUSHAR,) 4 mg 00 CTIONS. Medica l tablets follow Branch package directions tamsulosin 2017-10 Yes QD Take by Meth lucinda (FLOMAX) 2-[address] 0.4 mg 00:00: daily. Hospita capsule 00 l fluticasone 2017-10 Yes SPRAY 2 Met hodi (FLONASE) 1-[address] 50 00:00: INTRANASAL Hospita mcg/actuati 00 ROUTE l on nasal EVERY DAY spray IN EACH NOSTRIL azelastine 2017-10 Yes SPRAY 1 Meth lucinda 0.15 % 1-[address] (205.5 mcg) 00:00: INTRANASAL [facility]ospita spray,non-a 00 ROUTE 2 l erosol TIMES EVERY DAY IN EACH NOSTRIL pantoprazol 2017-10 Yes 40mg QD Take 1 Meth lucinda e 0-26 tablet (40 st (PROTONIX) 00:00: mg total) Ho spita 40 MG EC 00 by mouth l tablet daily. atorvastati 2017-10 Yes 20mg QD Take 1 Meth lucinda n (LIPITOR) 0-21 tablet (20 st 20 MG 00:00: mg total) Hospita tablet 00 by mouth l daily. folic acid 2017-10 Yes 1mg QD Take 1 Metho di (FOLVITE) 1 0-21 tablet (1 st MG tablet 00:00: mg total) Hos laurie 00 by mouth l daily. albuterol albuterol No albuterol Chante sulfate HFA sulfate HFA sulfate Orthope 90 90 HFA 90 dic mcg/actuati mcg/actuati mcg/actuat Sports on aerosol on aerosol ion Med icin inhaler inhaler aerosol e INHALE 2 INHALE 2 inhaler PUFF USING PUFF USING INHALE 2 INHALER INHALER PUFF USING EVERY FOUR EVERY FOUR INHALER HOURS HOURS EVERY FOUR NEEDED FOR NEEDED FOR HOURS WHEEZING, WHEEZING, NEEDED FOR SHORTNESS SHORTNESS WHEEZING, OF BREATH OF BREATH SHORTNESS OR COUGH OR COUGH OF BREATH OR COUGH atorvastati atorvastati No atorvastat Chante n 20 mg n 20 mg in 20 mg Ortho pe tablet TAKE tablet TAKE tablet dic 1 TABLET BY 1 TABLET BY TAKE 1 Sports MOUTH EVERY MOUTH EVERY TABLET BY Medicin DAY DAY MOUTH e EVERY DAY azelastine azelastine No azelastine Chante 137 mcg 137 mcg 137 mcg Orthop e (0.1 %) (0.1 %) (0.1 %) dic nasal spray nasal spray nasal Sports aerosol aerosol spray Medicin PLEASE SEE PLEASE SEE aerosol e ATTACHED ATTACHED PLEASE SEE FOR FOR ATTACHED DETAILED DETAILED FOR DIRECTIONS DIRECTIONS DETAILED DIRECTIONS carvedilol carvedilol No carvedilol Chante 6.25 mg 6.25 mg 6.25 mg Orthop e tablet TAKE tablet TAKE tablet dic 1 TABLET BY 1 TABLET BY TAKE 1 Sports MOUTH TWICE MOUTH TWICE TABLET BY Medicin A DAY A DAY MOUTH e TWICE A DAY Comp-Air Comp-Air No Comp-Air Aza keely Nebulizer Nebulizer Nebulizer [facility] Compressor Compressor Compressor dic USE USE USE Sports DIRECTED DIRECTED DIRECTED Med icin e Eliquis 5 Eliquis 5 No Eliquis 5 Chante mg tablet mg tablet mg tablet Orthope TAKE 1 TAKE 1 TAKE 1 dic TABLET BY TABLET BY TABLET BY Sports MOUTH TWICE MOUTH TWICE MOUTH Medicin A DAY A DAY TWICE A e DAY amlodipine amlodipine No amlodipine Phillips 10 mg 10 mg 10 mg [facility] tablet tablet tablet Urology atorvastati atorvastati No atorvastat Phillips n 20 mg n 20 mg in 20 mg [facility] tablet TAKE tablet TAKE tablet Urology 1 TABLET BY 1 TABLET BY TAKE 1 MOUTH EVERY MOUTH EVERY TABLET BY DAY DAY MOUTH EVERY DAY atropine 1 atropine 1 No atropine 1 Phillips % eye drops % eye drops % eye [facility] INSTILL 1 INSTILL 1 drops Urol ogy DROP INTO DROP INTO INSTILL 1 RIGHT EYE 4 RIGHT EYE 4 DROP INTO TIMES A DAY TIMES A DAY RIGHT EYE . START 3 . START 3 4 TIMES A DAYS PRIOR DAYS PRIOR DAY . TO SURGERY TO SURGERY START 3 DAYS PRIOR TO SURGERY azelastine azelastine No azelastine [address] 137 mcg 137 mcg 137 mcg [facility] (0.1 %) (0.1 %) (0.1 %) Urolog y nasal spray nasal spray nasal aerosol aerosol spray PLEASE SEE PLEASE SEE aerosol ATTACHED ATTACHED PLEASE SEE FOR FOR ATTACHED DETAILED DETAILED FOR DIRECTIONS DIRECTIONS DETAILED DIRECTIONS azithromyci azithromyci No azithromyc [address] n 250 mg n 250 mg in 250 mg Me tro tablet TAKE tablet TAKE tablet Urology 2 TABLETS 2 TABLETS TAKE 2 BY MOUTH BY MOUTH TABLETS BY TODAY, THEN TODAY, THEN MOUTH TAKE 1 TAKE 1 TODAY, TABLET TABLET THEN TAKE DAILY FOR 4 DAILY FOR 4 1 TABLET DAYS DAYS DAILY FOR 4 DAYS BinaxNOW BinaxNOW No BinaxNOW Melissa ston COVID-19 Ag COVID-19 Ag COVID-19 [facility] Self Test Self Test Ag Self Ur ology kit TEST kit TEST Test kit DIRECTED DIRECTED TEST TODAY TODAY DIRECTED TODAY Breo Breo No Breo [address] Ellipta 200 Ellipta 200 Ellipta [facility] mcg-25 mcg-25 200 mcg-25 Urolo gy mcg/dose mcg/dose mcg/dose powder for powder for powder for inhalation inhalation inhalation 1 puff 1 puff 1 puff every day every day every day by by by inhalation inhalation inhalation route. route. route. BromSite BromSite No BromSite Melissa ston 0.075 % eye 0.075 % eye 0.075 % [facility] drops drops eye drops Urology INSTILL 1 INSTILL 1 INSTILL 1 DROP INTO DROP INTO DROP INTO RIGHT EYE RIGHT EYE RIGHT EYE TWICE A DAY TWICE A DAY TWICE A . START 3 . START 3 DAY . DAYS BEFORE DAYS BEFORE START 3 SURGERY SURGERY DAYS BEFORE SURGERY carvedilol carvedilol No carvedilol [address] 12.5 mg 12.5 mg 12.5 mg [facility] tablet TAKE tablet TAKE tablet Urology 1 TABLET BY 1 TABLET BY TAKE 1 MOUTH TWICE MOUTH TWICE TABLET BY A DAY A DAY MOUTH TWICE A DAY famotidine famotidine No famotidine Chante 40 mg 40 mg 40 mg [facility] tablet TAKE tablet TAKE tablet dic 1 TABLET BY 1 TABLET BY TAKE 1 Sports MOUTH MOUTH TABLET BY Medicin EVERYDAY AT EVERYDAY AT MOUTH e BEDTIME BEDTIME EVERYDAY AT BEDTIME carvedilol carvedilol No carvedilol [address] 6.25 mg 6.25 mg 6.25 mg [facility] tablet TAKE tablet TAKE tablet Urology 1 TABLET BY 1 TABLET BY TAKE 1 MOUTH TWICE MOUTH TWICE TABLET BY A DAY A DAY MOUTH TWICE A DAY cefuroxime cefuroxime No cefuroxime [address] axetil 250 axetil 250 axetil 250 [facility] mg tablet mg tablet mg tablet Urology TAKE 1 TAKE 1 TAKE 1 TABLET BY TABLET BY TABLET BY MOUTH TWICE MOUTH TWICE MOUTH A DAY WITH A DAY WITH TWICE A MEALS MEALS DAY WITH MEALS Comp-Air Comp-Air No Comp-Air Melissa ston Nebulizer Nebulizer Nebulizer [facility] Compressor Compressor Compressor Urology USE USE USE DIRECTED DIRECTED DIRECTED fluticasone fluticasone No fluticason Chante furoate 200 furoate 200 e furoate Orthope mcg-vilante mcg-vilante 200 d ic rol 25 rol 25 mcg-vilant Sport s mcg/dose mcg/dose misti 25 Medi dahlia inhalation inhalation mcg/dose e powder powder inhalation INHALE 1 INHALE 1 powder PUFF BY PUFF BY INHALE 1 MOUTH MOUTH PUFF BY DIRECTED DIRECTED MOUTH ONCE A DAY ONCE A DAY DIRECTED ONCE A DAY diflupredna diflupredna No diflupredn [address] te 0.05 % te 0.05 % ate 0.05 % [facility] eye drops eye drops eye drops Urology INSTILL 1 INSTILL 1 INSTILL 1 DROP INTO DROP INTO DROP INTO RIGHT EYE 4 RIGHT EYE 4 RIGHT EYE TIMES A DAY TIMES A DAY 4 TIMES A . START THE . START THE DAY . DAY AFTER DAY AFTER START THE SURGERY SURGERY DAY AFTER SURGERY digoxin [address] mcg (0.125 mcg (0.125 125 mcg [facility] mg) tablet mg) tablet (0.125 mg) Urology tablet diltiazem diltiazem No diltiazem [address] CD 120 mg CD 120 mg CD 120 mg [facility] capsule,ext capsule,ext capsule,ex Urology ended ended tended release 24 release 24 release 24 hr TAKE 1 hr TAKE 1 hr TAKE 1 CAPSULE BY CAPSULE BY CAPSULE BY MOUTH MOUTH MOUTH EVERYDAY AT EVERYDAY AT EVERYDAY BEDTIME BEDTIME AT BEDTIME Eliquis 5 Eliquis 5 No Eliquis 5 Phillips mg tablet mg tablet mg tablet [facility] TAKE 1 TAKE 1 TAKE 1 Urology TABLET BY TABLET BY TABLET BY MOUTH TWICE MOUTH TWICE MOUTH A DAY A DAY TWICE A DAY enoxaparin enoxaparin No enoxaparin [address] 120 mg/0.8 120 mg/0.8 120 mg/0.8 [facility] mL mL mL Urology subcutaneou subcutaneou subcutaneo s syringe s syringe us syringe famotidine famotidine No famotidine [address] 40 mg 40 mg 40 mg [facility] tablet TAKE tablet TAKE tablet Urology 1 TABLET BY 1 TABLET BY TAKE 1 MOUTH MOUTH TABLET BY EVERYDAY AT EVERYDAY AT MOUTH BEDTIME BEDTIME EVERYDAY AT BEDTIME finasteride finasteride No [address] 5 mg tablet 5 mg tablet e 5 mg [facility] Take 1 Take 1 tablet Urology tablet tablet Take 1 every day every day tablet by oral by oral every day route. route. by oral route. flecainide flecainide No flecainide [address] 100 mg 100 mg 100 mg [facility] tablet tablet tablet Urology fluticasone fluticasone No fluticason [address] propionate propionate e Met ro 50 50 propionate Urology mcg/actuati mcg/actuati 50 on nasal on nasal mcg/actuat spray,suspe spray,suspe ion nasal nsion nsion spray,susp INSTILL 2 INSTILL 2 ension SPRAYS EACH SPRAYS EACH INSTILL 2 NOSTRIL NOSTRIL SPRAYS DAILY DAILY EACH NOSTRIL DAILY folic acid folic acid No folic acid [address] 1 mg tablet 1 mg tablet 1 mg M etro TAKE 1 TAKE 1 tablet Urology TABLET BY TABLET BY TAKE 1 MOUTH EVERY MOUTH EVERY TABLET BY DAY DAY MOUTH EVERY DAY gentamicin gentamicin No gentamicin [address] 0.3 % eye 0.3 % eye 0.3 % eye [facility] drops drops drops Urology INSTILL 1 INSTILL 1 INSTILL 1 DROP INTO DROP INTO DROP INTO RIGHT EYE 4 RIGHT EYE 4 RIGHT EYE TIMES A DAY TIMES A DAY 4 TIMES A . START 3 . START 3 DAY . DAYS PRIOR DAYS PRIOR START 3 TO SURGERY TO SURGERY DAYS PRIOR TO SURGERY fluticasone fluticasone No fluticason Chante propionate propionate e Ort hope 50 50 propionate dic mcg/actuati mcg/actuati 50 S ports on nasal on nasal mcg/actuat M edicin spray,suspe spray,suspe ion nasal e nsion nsion spray,susp INSTILL 2 INSTILL 2 ension SPRAYS EACH SPRAYS EACH INSTILL 2 NOSTRIL NOSTRIL SPRAYS DAILY DAILY EACH NOSTRIL DAILY irbesartan irbesartan No irbesartan [address] 300 mg 300 mg 300 mg [facility] tablet TAKE tablet TAKE tablet Urology 1 TABLET BY 1 TABLET BY TAKE 1 MOUTH EVERY MOUTH EVERY TABLET BY DAY DAY MOUTH EVERY DAY levofloxaci levofloxaci No levofloxac [address] n 500 mg n 500 mg in 500 mg Me tro tablet TAKE tablet TAKE tablet Urology 1 TABLET 1 TABLET TAKE 1 (500 MG (500 MG TABLET TOTAL) BY TOTAL) BY (500 MG MOUTH DAILY MOUTH DAILY TOTAL) BY FOR 8 DAYS. FOR 8 DAYS. MOUTH DAILY FOR 8 DAYS. methylpredn methylpredn No methylpred [address] isolone 4 isolone 4 nisolone 4 [facility] mg tablets mg tablets mg tablets Urology in a dose in a dose in a dose pack TAKE 6 pack TAKE 6 pack TAKE TABLETS ON TABLETS ON 6 TABLETS DAY 1 DAY 1 ON DAY 1 DIRECTED ON DIRECTED ON PACKAGE AND PACKAGE AND DIRECTED DECREASE BY DECREASE BY ON PACKAGE 1 TAB EACH 1 TAB EACH AND DAY FOR A DAY FOR A DECREASE TOTAL OF 6 TOTAL OF 6 BY 1 TAB DAYS DAYS EACH DAY FOR A TOTAL OF 6 DAYS metoprolol metoprolol No metoprolol [address] succinate succinate succinate [facility] ER 100 mg ER 100 mg ER 100 mg Urology tablet,exte tablet,exte tablet,ext nded nded ended release 24 release 24 release 24 hr TAKE 1 hr TAKE 1 hr TAKE 1 TABLET BY TABLET BY TABLET BY MOUTH TWICE MOUTH TWICE MOUTH A DAY A DAY TWICE A DAY metoprolol metoprolol No metoprolol [address] succinate succinate succinate [facility] ER 25 mg ER 25 mg ER 25 mg Uro logy tablet,exte tablet,exte tablet,ext nded nded ended release 24 release 24 release 24 hr TAKE 1 hr TAKE 1 hr TAKE 1 TABLET BY TABLET BY TABLET BY MOUTH TWICE MOUTH TWICE MOUTH A DAY A DAY TWICE A DAY metoprolol metoprolol No metoprolol [address] tartrate 25 tartrate 25 tartrate [facility] mg tablet mg tablet 25 mg Urol ogy tablet montelukast montelukast No montelukas [address] 10 mg 10 mg t 10 mg [facility] tablet TAKE tablet TAKE tablet Urology 1 TABLET BY 1 TABLET BY TAKE 1 MOUTH MOUTH TABLET BY EVERYDAY AT EVERYDAY AT MOUTH BEDTIME BEDTIME EVERYDAY AT BEDTIME nifedipine nifedipine No nifedipine [address] ER 60 mg ER 60 mg ER 60 mg Met ro tablet,exte tablet,exte tablet,ext Urology nded nded ended release 24 release 24 release 24 hr TAKE 1 hr TAKE 1 hr TAKE 1 TABLET BY TABLET BY TABLET BY MOUTH EVERY MOUTH EVERY MOUTH DAY DAY EVERY DAY pantoprazol pantoprazol No pantoprazo Phillips e 40 mg e 40 mg le 40 mg [facility] tablet,elisha tablet,elisha tablet,del Urology yed release yed release ayed TAKE 1 TAKE 1 release TABLET BY TABLET BY TAKE 1 MOUTH EVERY MOUTH EVERY TABLET BY DAY DAY MOUTH EVERY DAY Phospha Phospha No Phospha [place] Neutral 250 Neutral 250 Neutral [facility] mg tablet mg tablet 250 mg Uro logy TAKE 1 TAKE 1 tablet TABLET BY TABLET BY TAKE 1 MOUTH EVERY MOUTH EVERY TABLET BY DAY DAY MOUTH EVERY DAY potassium potassium No potassium [address] chloride ER chloride ER chloride [facility] 20 mEq 20 mEq ER 20 mEq Urolog y tablet,exte tablet,exte tablet,ext nded nded ended release(par release(par release(pa t/cryst) t/cryst) rt/cryst) TAKE 1 TAKE 1 TAKE 1 TABLET BY TABLET BY TABLET BY MOUTH TWICE MOUTH TWICE MOUTH A DAY A DAY TWICE A DAY folic acid folic acid No folic acid Chante 1 mg tablet 1 mg tablet 1 mg O rthope TAKE 1 TAKE 1 tablet dic TABLET BY TABLET BY TAKE 1 Spo rts MOUTH EVERY MOUTH EVERY TABLET BY Medicin DAY DAY MOUTH e EVERY DAY prednisone prednisone No prednisone [address] 10 mg 10 mg 10 mg [facility] tablet TAKE tablet TAKE tablet Urology USE USE TAKE USE DIRECTED 4 DIRECTED 4 TABLETS X 3 TABLETS X 3 DIRECTED 4 DAYS, 3 X 3 DAYS, 3 X 3 TABLETS X DAYS, 2 X 3 DAYS, 2 X 3 3 DAYS, 3 DAYS, 1 X 3 DAYS, 1 X 3 X 3 DAYS, DAYS, THEN DAYS, THEN 2 X 3 STOP. STOP. DAYS, 1 X 3 DAYS, THEN STOP. prednisone prednisone No prednisone [address] 20 mg 20 mg 20 mg [facility] tablet tablet tablet Urology PLEASE SEE PLEASE SEE PLEASE SEE ATTACHED ATTACHED ATTACHED FOR FOR FOR DETAILED DETAILED DETAILED DIRECTIONS DIRECTIONS DIRECTIONS ranitidine ranitidine No ranitidine [address] 150 mg 150 mg 150 mg [facility] tablet tablet tablet Urology sertraline sertraline No sertraline [address] 25 mg 25 mg 25 mg [facility] tablet tablet tablet Urology Tadalafil Tadalafil No Tadalafil [address] 25 25 25 [facility] Tadalafil Tadalafil Tadalafil Urology 25 mg 25 mg 25 mg orally orally orally 30-60 30-60 30-60 minutes minutes minutes prior to prior to prior to sexual sexual sexual activity activity activity Tadalafil Tadalafil Tadalafil 25 mg PO 25 mg PO 25 mg PO 2x/week prn 2x/week prn 2x/week ED ED prn ED tamsulosin tamsulosin No tamsulosin Phillips 0.4 mg 0.4 mg 0.4 mg [facility] capsule capsule capsule Urolog y TAKE 1 TAKE 1 TAKE 1 CAPSULE BY CAPSULE BY CAPSULE BY MOUTH EVERY MOUTH EVERY MOUTH DAY DAY EVERY DAY valacyclovi valacyclovi No valacyclov Phillips r 1 gram r 1 gram ir 1 [address] Me [address] tablet TAKE tablet TAKE tablet Urology 1 TABLET BY 1 TABLET BY TAKE 1 MOUTH THREE MOUTH THREE TABLET BY TIMES A DAY TIMES A DAY MOUTH THREE TIMES A DAY valacyclovi valacyclovi No valacyclov Phillips r 500 mg r 500 mg ir 500 mg Me tro tablet tablet tablet Urology amlodipine amlodipine No amlodipine Phillips 10 mg 10 mg 10 mg [facility] tablet tablet tablet Urology atorvastati atorvastati No atorvastat [address] n 20 mg n 20 mg in 20 mg [facility] tablet TAKE tablet TAKE tablet Urology 1 TABLET BY 1 TABLET BY TAKE 1 MOUTH EVERY MOUTH EVERY TABLET BY DAY DAY MOUTH EVERY DAY atropine 1 atropine 1 No atropine 1 Phillips % eye drops % eye drops % eye [facility] INSTILL 1 INSTILL 1 drops Urol ogy DROP INTO DROP INTO INSTILL 1 RIGHT EYE 4 RIGHT EYE 4 DROP INTO TIMES A DAY TIMES A DAY RIGHT EYE . START 3 . START 3 4 TIMES A DAYS PRIOR DAYS PRIOR DAY . TO SURGERY TO SURGERY START 3 DAYS PRIOR TO SURGERY azelastine azelastine No azelastine [address] 137 mcg 137 mcg 137 mcg [facility] (0.1 %) (0.1 %) (0.1 %) Urolog y nasal spray nasal spray nasal aerosol aerosol spray PLEASE SEE PLEASE SEE aerosol ATTACHED ATTACHED PLEASE SEE FOR FOR ATTACHED DETAILED DETAILED FOR DIRECTIONS DIRECTIONS DETAILED DIRECTIONS azithromyci azithromyci No azithromyc [address] n 250 mg n 250 mg in 250 mg Me tro tablet TAKE tablet TAKE tablet Urology 2 TABLETS 2 TABLETS TAKE 2 BY MOUTH BY MOUTH TABLETS BY TODAY, THEN TODAY, THEN MOUTH TAKE 1 TAKE 1 TODAY, TABLET TABLET THEN TAKE DAILY FOR 4 DAILY FOR 4 1 TABLET DAYS DAYS DAILY FOR 4 DAYS BinaxNOW BinaxNOW No BinaxNOW Melissa ston COVID-19 Ag COVID-19 Ag COVID-19 [facility] Self Test Self Test Ag Self Ur ology kit TEST kit TEST Test kit DIRECTED DIRECTED TEST TODAY TODAY DIRECTED TODAY BromSite BromSite No BromSite Melissa ston 0.075 % eye 0.075 % eye 0.075 % [facility] drops drops eye drops Urology INSTILL 1 INSTILL 1 INSTILL 1 DROP INTO DROP INTO DROP INTO RIGHT EYE RIGHT EYE RIGHT EYE TWICE A DAY TWICE A DAY TWICE A . START 3 . START 3 DAY . DAYS BEFORE DAYS BEFORE START 3 SURGERY SURGERY DAYS BEFORE SURGERY hydrochloro hydrochloro No hydrochlor Chante thiazide 25 thiazide 25 othiazide [facility] mg tablet mg tablet 25 mg dic TAKE 1 TAKE 1 tablet Sports TABLET BY TABLET BY TAKE 1 Med icin MOUTH EVERY MOUTH EVERY TABLET BY e DAY DAY MOUTH EVERY DAY carvedilol carvedilol No carvedilol [address] 12.5 mg 12.5 mg 12.5 mg [facility] tablet TAKE tablet TAKE tablet Urology 1 TABLET BY 1 TABLET BY TAKE 1 MOUTH TWICE MOUTH TWICE TABLET BY A DAY A DAY MOUTH TWICE A DAY carvedilol carvedilol No carvedilol [address] 6.25 mg 6.25 mg 6.25 mg [facility] tablet TAKE tablet TAKE tablet Urology 1 TABLET BY 1 TABLET BY TAKE 1 MOUTH TWICE MOUTH TWICE TABLET BY A DAY A DAY MOUTH TWICE A DAY cefuroxime cefuroxime No cefuroxime [address] axetil 250 axetil 250 axetil 250 [facility] mg tablet mg tablet mg tablet Urology TAKE 1 TAKE 1 TAKE 1 TABLET BY TABLET BY TABLET BY MOUTH TWICE MOUTH TWICE MOUTH A DAY WITH A DAY WITH TWICE A MEALS MEALS DAY WITH MEALS Comp-Air Comp-Air No Comp-Air Melissa ston Nebulizer Nebulizer Nebulizer [facility] Compressor Compressor Compressor Urology USE USE USE DIRECTED DIRECTED DIRECTED diflupredna diflupredna No diflupredn [address] te 0.05 % te 0.05 % ate 0.05 % [facility] eye drops eye drops eye drops Urology INSTILL 1 INSTILL 1 INSTILL 1 DROP INTO DROP INTO DROP INTO RIGHT EYE 4 RIGHT EYE 4 RIGHT EYE TIMES A DAY TIMES A DAY 4 TIMES A . START THE . START THE DAY . DAY AFTER DAY AFTER START THE SURGERY SURGERY DAY AFTER SURGERY diltiazem diltiazem No diltiazem [address] CD 120 mg CD 120 mg CD 120 mg [facility] capsule,ext capsule,ext capsule,ex Urology ended ended tended release 24 release 24 release 24 hr TAKE 1 hr TAKE 1 hr TAKE 1 CAPSULE BY CAPSULE BY CAPSULE BY MOUTH MOUTH MOUTH EVERYDAY AT EVERYDAY AT EVERYDAY BEDTIME BEDTIME AT BEDTIME Eliquis 5 Eliquis 5 No Eliquis 5 Phillips mg tablet mg tablet mg tablet [facility] TAKE 1 TAKE 1 TAKE 1 Urology TABLET BY TABLET BY TABLET BY MOUTH TWICE MOUTH TWICE MOUTH A DAY A DAY TWICE A DAY enoxaparin enoxaparin No enoxaparin [address] 120 mg/0.8 120 mg/0.8 120 mg/0.8 [facility] mL mL mL Urology subcutaneou subcutaneou subcutaneo s syringe s syringe us syringe famotidine famotidine No famotidine [address] 40 mg 40 mg 40 mg [facility] tablet TAKE tablet TAKE tablet Urology 1 TABLET BY 1 TABLET BY TAKE 1 MOUTH MOUTH TABLET BY EVERYDAY AT EVERYDAY AT MOUTH BEDTIME BEDTIME EVERYDAY AT BEDTIME finasteride finasteride No [address] 5 mg tablet 5 mg tablet e 5 mg [facility] Take 1 Take 1 tablet Urology tablet tablet Take 1 every day every day tablet by oral by oral every day route. route. by oral route. fluticasone fluticasone No fluticason [address] propionate propionate e Met ro 50 50 propionate Urology mcg/actuati mcg/actuati 50 on nasal on nasal mcg/actuat spray,suspe spray,suspe ion nasal nsion nsion spray,susp INSTILL 2 INSTILL 2 ension SPRAYS EACH SPRAYS EACH INSTILL 2 NOSTRIL NOSTRIL SPRAYS DAILY DAILY EACH NOSTRIL DAILY ipratropium ipratropium No ipratropiu [facility] 0.5 0.5 m 0.5 [facility] mg-albutero mg-albutero mg-albuter dic l 3 mg (2.5 l 3 mg (2.5 ol 3 mg Sports mg base)/3 mg base)/3 (2.5 mg Medicin mL mL base)/3 mL e nebulizatio nebulizatio nebulizati n soln USE n soln USE on soln 1 VIAL IN 1 VIAL IN USE 1 VIAL NEBULIZER 4 NEBULIZER 4 IN TIMES A DAY TIMES A DAY NEBULIZER 4 TIMES A DAY folic acid folic acid No folic acid [address] 1 mg tablet 1 mg tablet 1 mg M etro TAKE 1 TAKE 1 tablet Urology TABLET BY TABLET BY TAKE 1 MOUTH EVERY MOUTH EVERY TABLET BY DAY DAY MOUTH EVERY DAY gentamicin gentamicin No gentamicin [address] 0.3 % eye 0.3 % eye 0.3 % eye [facility] drops drops drops U[facility] INSTILL 1 INSTILL 1 INSTILL 1 DROP INTO DROP INTO DROP INTO RIGHT EYE 4 RIGHT EYE 4 RIGHT EYE TIMES A DAY TIMES A DAY 4 TIMES A . START 3 . START 3 DAY . DAYS PRIOR DAYS PRIOR START 3 TO SURGERY TO SURGERY DAYS PRIOR TO SURGERY irbesartan irbesartan No irbesartan [facility] 300 mg 300 mg 300 mg [facility] tablet TAKE tablet TAKE tablet Urology 1 TABLET BY 1 TABLET BY TAKE 1 MOUTH EVERY MOUTH EVERY TABLET BY DAY DAY MOUTH EVERY DAY levofloxaci levofloxaci No levofloxac [address] n 500 mg n 500 mg in 500 mg Me tro tablet TAKE tablet TAKE tablet Urology 1 TABLET 1 TABLET TAKE 1 (500 MG (500 MG TABLET TOTAL) BY TOTAL) BY (500 MG MOUTH DAILY MOUTH DAILY TOTAL) BY FOR 8 DAYS. FOR 8 DAYS. MOUTH DAILY FOR 8 DAYS. methylpredn methylpredn No methylpred [address] isolone 4 isolone 4 nisolone 4 [facility] mg tablets mg tablets mg tablets Urology in a dose in a dose in a dose pack TAKE 6 pack TAKE 6 pack TAKE TABLETS ON TABLETS ON 6 TABLETS DAY 1 DAY 1 ON DAY 1 DIRECTED ON DIRECTED ON PACKAGE AND PACKAGE AND DIRECTED DECREASE BY DECREASE BY ON PACKAGE 1 TAB EACH 1 TAB EACH AND DAY FOR A DAY FOR A DECREASE TOTAL OF 6 TOTAL OF 6 BY 1 TAB DAYS DAYS EACH DAY FOR A TOTAL OF 6 DAYS irbesartan irbesartan No irbesartan Chante 300 mg 300 mg 300 mg [facility] tablet TAKE tablet TAKE tablet dic 1 TABLET BY 1 TABLET BY TAKE 1 Sports MOUTH EVERY MOUTH EVERY TABLET BY Medicin DAY DAY MOUTH e EVERY DAY metoprolol metoprolol No metoprolol [address] succinate succinate succinate [facility] ER 25 mg ER 25 mg ER 25 mg Uro logy tablet,exte tablet,exte tablet,ext nded nded ended release 24 release 24 release 24 hr TAKE 1 hr TAKE 1 hr TAKE 1 TABLET BY TABLET BY TABLET BY MOUTH TWICE MOUTH TWICE MOUTH A DAY A DAY TWICE A DAY metoprolol metoprolol No metoprolol [address] tartrate 25 tartrate 25 tartrate Metro mg tablet mg tablet 25 mg Urol ogy tablet montelukast montelukast No montelukas [address] 10 mg 10 mg t 10 mg [facility] tablet TAKE tablet TAKE tablet Urology 1 TABLET BY 1 TABLET BY TAKE 1 MOUTH MOUTH TABLET BY EVERYDAY AT EVERYDAY AT MOUTH BEDTIME BEDTIME EVERYDAY AT BEDTIME nifedipine nifedipine No nifedipine [address] ER 60 mg ER 60 mg ER 60 mg Met ro tablet,exte tablet,exte tablet,ext Urology nded nded ended release 24 release 24 release 24 hr TAKE 1 hr TAKE 1 hr TAKE 1 TABLET BY TABLET BY TABLET BY MOUTH EVERY MOUTH EVERY MOUTH DAY DAY EVERY DAY pantoprazol pantoprazol No pantoprazo [address] e 40 mg e 40 mg le 40 mg [facility] tablet,elisha tablet,elisha tablet,del Urology yed release yed release ayed TAKE 1 TAKE 1 release TABLET BY TABLET BY TAKE 1 MOUTH EVERY MOUTH EVERY TABLET BY DAY DAY MOUTH EVERY DAY Phospha Phospha No Phospha [place] n Neutral 250 Neutral 250 Neutral [facility] mg tablet mg tablet 250 mg Uro logy TAKE 1 TAKE 1 tablet TABLET BY TABLET BY TAKE 1 MOUTH EVERY MOUTH EVERY TABLET BY DAY DAY MOUTH EVERY DAY potassium potassium No potassium [address] chloride ER chloride ER chloride Metro 20 mEq 20 mEq ER 20 mEq Urolog y tablet,exte tablet,exte tablet,ext nded nded ended release(par release(par release(pa t/cryst) t/cryst) rt/cryst) TAKE 1 TAKE 1 TAKE 1 TABLET BY TABLET BY TABLET BY MOUTH TWICE MOUTH TWICE MOUTH A DAY A DAY TWICE A DAY prednisone prednisone No prednisone [address] 10 mg 10 mg 10 mg [facility] tablet TAKE tablet TAKE tablet Urology USE USE TAKE USE DIRECTED 4 DIRECTED 4 TABLETS X 3 TABLETS X 3 DIRECTED 4 DAYS, 3 X 3 DAYS, 3 X 3 TABLETS X DAYS, 2 X 3 DAYS, 2 X 3 3 DAYS, 3 DAYS, 1 X 3 DAYS, 1 X 3 X 3 DAYS, DAYS, THEN DAYS, THEN 2 X 3 STOP. STOP. DAYS, 1 X 3 DAYS, THEN STOP. prednisone prednisone No prednisone [address] 20 mg 20 mg 20 mg [facility] tablet tablet tablet Urology PLEASE SEE PLEASE SEE PLEASE SEE ATTACHED ATTACHED ATTACHED FOR FOR FOR DETAILED DETAILED DETAILED DIRECTIONS DIRECTIONS DIRECTIONS ranitidine ranitidine No ranitidine [address] 150 mg 150 mg 150 mg [facility] tablet tablet tablet Urology sertraline sertraline No sertraline [address] 25 mg 25 mg 25 mg [facility] tablet tablet tablet Urology Tadalafil Tadalafil No Tadalafil Phillips 25 25 25 Metro Tadalafil Tadalafil Tadalafil Urology 25 mg 25 mg 25 mg orally orally orally 30-60 30-60 30-60 minutes minutes minutes prior to prior to prior to sexual sexual sexual activity activity activity Tadalafil Tadalafil Tadalafil 25 mg PO 25 mg PO 25 mg PO 2x/week prn 2x/week prn 2x/week ED ED prn ED levocetiriz levocetiriz No levocetiri Chante ine 5 mg ine 5 mg zine 5 mg Or thope tablet TAKE tablet TAKE tablet dic 1 TABLET BY 1 TABLET BY TAKE 1 Sports MOUTH EVERY MOUTH EVERY TABLET BY Medicin DAY DAY MOUTH e EVERY DAY tamsulosin tamsulosin No tamsulosin Phillips 0.4 mg 0.4 mg 0.4 mg [facility] capsule capsule capsule Urolog y TAKE 1 TAKE 1 TAKE 1 CAPSULE BY CAPSULE BY CAPSULE BY MOUTH EVERY MOUTH EVERY MOUTH DAY DAY EVERY DAY valacyclovi valacyclovi No valacyclov Phillips r 1 gram r 1 gram ir 1 [address] tablet TAKE tablet TAKE tablet Urology 1 TABLET BY 1 TABLET BY TAKE 1 MOUTH THREE MOUTH THREE TABLET BY TIMES A DAY TIMES A DAY MOUTH THREE TIMES A DAY valacyclovi valacyclovi No valacyclov Phillips r 500 mg r 500 mg ir 500 [address] Me tro tablet tablet tablet Urology montelukast montelukast No montelukas Chante 10 mg 10 mg t 10 mg [facility] tablet TAKE tablet TAKE tablet dic 1 TABLET BY 1 TABLET BY TAKE 1 Sports MOUTH MOUTH TABLET BY Medicin EVERYDAY AT EVERYDAY AT MOUTH e BEDTIME BEDTIME EVERYDAY AT BEDTIME nifedipine nifedipine No nifedipine Chante ER 60 mg ER 60 mg ER 60 mg Ort hope tablet,exte tablet,exte tablet,ext dic nded nded ended Sports release 24 release 24 release 24 Medicin hr TAKE 1 hr TAKE 1 hr TAKE 1 e TABLET BY TABLET BY TABLET BY MOUTH EVERY MOUTH EVERY MOUTH DAY DAY EVERY DAY pantoprazol pantoprazol No pantoprazo Chante e 40 mg e 40 mg le 40 mg Ortho pe tablet,elisha tablet,elisha tablet,del dic yed release yed release ayed S ports TAKE 1 TAKE 1 release Medicin TABLET BY TABLET BY TAKE 1 e MOUTH EVERY MOUTH EVERY TABLET BY DAY DAY MOUTH EVERY DAY Phospha Phospha No Phospha Chante Neutral 250 Neutral 250 Neutral Orthope mg tablet mg tablet 250 mg dic TAKE 1 TAKE 1 tablet Sports TABLET BY TABLET BY TAKE 1 Med icin MOUTH EVERY MOUTH EVERY TABLET BY e DAY DAY MOUTH EVERY DAY potassium potassium No potassium Chante chloride ER chloride ER chloride Orthope 20 mEq 20 mEq ER 20 mEq dic tablet,exte tablet,exte tablet,ext Sports nded nded ended Medicin release(par release(par release(pa e t/cryst) t/cryst) rt/cryst) TAKE 1 TAKE 1 TAKE 1 TABLET BY TABLET BY TABLET BY MOUTH TWICE MOUTH TWICE MOUTH A DAY A DAY TWICE A DAY tamsulosin tamsulosin No tamsulosin Chante 0.4 mg 0.4 mg 0.4 mg Orth[facility] capsule capsule capsule dic TAKE 2 TAKE 2 TAKE 2 Sports CAPSULES BY CAPSULES BY CAPSULES Medicin MOUTH EVERY MOUTH EVERY BY MOUTH e DAY DAY EVERY DAY valsartan valsartan No valsartan Chante 320 320 320 Orthope mg-hydrochl mg-hydrochl mg-hydroch dic orothiazide orothiazide lorothiazi Sports 25 mg 25 mg de 25 mg Medicin tablet RX tablet RX tablet RX e by other MD by other MD by other MD Immunizations Ordered Immunization Filled Immunization Date Status Commen ts Source Name Name [facility] COVID-19 MRNA 2020-11-26 Completed Met [facility] VACCINATION 00:00:00 [facility] COVID-19 MRNA 2020-10-28 Completed Met hodist VACCINATION 00:00:00 [facility] pneumococcal pneumococcal 2018-08-[address] [facility] polysaccharide PPV23 polysaccharide PPV23 00:00:00 Urology influenza, influenza, 2018-08-22 Completed [facility] injectable, injectable, 00:00:00 Urology quadrivalent quadrivalent pneumococcal pneumococcal 2018-08-[address] [facility] polysaccharide PPV23 polysaccharide PPV23 00:00:00 Urology influenza, influenza, 2018-08-22 Completed [facility] injectable, injectable, 00:00:00 Urology quadrivalent quadrivalent Vital Signs Vital Name Observation Time Observation Value Comments Source Height 2023-01-20 00:00:00 69 [in_i] [facility] Urology BMI (Body Mass 2023-01-20 00:00:00 25.8 kg/m2 Anthony Dawson Index) Urology Body Weight 2023-01-20 00:00:00 175 [lb_av] [facility] Urology Respiratory rate 2022-07-07 22:46:00 18 /min [facility] Systolic blood 2022-07-07 22:44:00 109 mm[Hg] [facility] [place] [facility] Diastolic blood 2022-07-07 22:44:00 87 mm[Hg] [facility] [place] [facility] Heart rate 2022-07-07 22:44:00 63 /min [facility] [place] [facility] Body temperature 2022-07-07 22:44:00 37.33 Michelle [facility] [place] [facility] Body weight 2022-07-07 22:44:00 81.647 kg [facility] [place] [facility] BMI 2022-07-07 22:44:00 27.37 kg/m2 [facility] [place] [facility] Oxygen saturation in 2022-07-07 22:44:00 95 /min [facility] Arterial blood by [place] Zhui Xin edmund Pulse oximetry Branch Systolic blood 2022-07-06 15:23:00 110 mm[Hg] [facility] [place] [facility] Diastolic blood 2022-07-06 15:23:00 66 mm[Hg] [facility] [place] [facility] Heart rate 2022-07-06 15:23:00 60 /min [facility] [place] [facility] Body temperature 2022-07-06 15:23:00 37.28 Michelle [facility] [place] [facility] Respiratory rate 2022-07-06 15:23:00 16 /min [facility] [place] [facility] Body height 2022-07-06 15:23:00 172.7 cm [facility] [place] [facility] Body weight 2022-07-06 15:23:00 81.789 kg [facility] [place] [facility] BMI 2022-07-06 15:23:00 27.42 kg/m2 [facility] [place] [facility] Oxygen saturation in 2022-07-06 15:23:00 97 /min [facility] Arterial blood by [place] Zhui Xin edmund Pulse oximetry Branch Systolic blood 2022-01-15 15:47:00 118 mm[Hg] [facility] [place] [facility] Diastolic blood 2022-01-15 15:47:00 67 mm[Hg] [facility] [place] [facility] Heart rate 2022-01-15 15:47:00 58 /min Universi ty [facility] Body temperature 2022-01-15 15:47:00 36.17 Michelle [facility] Respiratory rate 2022-01-15 15:47:00 14 /min [facility] Body height 2022-01-15 15:47:00 175.3 cm Universi ty [facility] Body weight 2022-01-15 15:47:00 80.876 kg Universi ty [facility] BMI 2022-01-15 15:47:00 26.33 kg/m2 Universi ty [facility] Oxygen saturation in 2022-01-15 15:47:00 97 /min [facility] Arterial blood by [facility] Pulse oximetry Branch WEIGHT 2021-03-17 11:30:58 78.7 kg WEIGHT 2021-01-18 10:40:28 77.8 kg WEIGHT 2020-10-21 09:12:01 80.6 kg HEIGHT 2020-10-13 11:28:00 171 cm WEIGHT 2020-10-13 11:28:00 78.472 kg HEIGHT 2020-09-08 11:57:00 171 cm WEIGHT 2020-09-08 11:57:00 78.9 kg WEIGHT 2020-07-23 11:15:39 79.6 kg WEIGHT 2020-04-17 00:00:00 80.1 kg Systolic blood 2023-02-14 17:55:00 146 mm[Hg] Method [facility] pressure Diastolic blood 2023-02-14 17:55:00 84 mm[Hg] [facility] pressure Heart rate 2023-02-14 17:55:00 54 /min [facility] Respiratory rate 2023-02-14 17:55:00 29 /min [facility] Oxygen saturation in 2023-02-14 17:55:00 97 /min [facility] Arterial blood by Pulse oximetry Body height 2023-02-14 14:00:00 172.7 cm [facility] Body weight 2023-02-14 14:00:00 78.109 kg [facility] BMI 2023-02-14 14:00:00 26.18 kg/m2 [facility] Body temperature 2023-02-14 13:51:00 36 Michelle [facility] Systolic blood 2022-08-05 15:01:24 110 mm[Hg] [facility] Diastolic blood 2022-08-05 15:01:24 72 mm[Hg] [facility]ive [facility] Heart rate 2022-08-05 15:01:24 97 /min [facility] Body temperature 2022-08-05 15:01:24 36.28 Michelle [facility] Respiratory rate 2022-08-05 15:01:24 18 /min [facility] Oxygen saturation in 2022-08-05 15:01:24 96 /min [facility] Arterial blood by Jonathan palacios Pulse oximetry [facility] Center Body height 2022-08-05 14:57:00 171 cm [facility] Body weight 2022-08-05 14:57:00 80.9 kg [facility] BMI 2022-08-05 14:57:00 27.67 kg/m2 [facility] Procedures Procedure Date / Time Performing Clinician Source Performed ECG 12-LEAD 2023-02-14 17:21:33 Sarbjit Duran spivalencia EP CARDIOVERSION 2023-02-14 17:17:28 Sarbjit Duran ospital ECG PRE/POST OP 2023-02-14 14:00:12 Sarbjit Duran COVID-19 QUALITATIVE 2023-02-09 16:26[facility] WITH INR 2023-02-08 18:29:00 Sarbjit Duran [facility] MAGNESIUM LEVEL 2023-02-08 18:29:00 Sarbjit Duran spivalencia CBC WITH PLATELET AND 2023-02-08 18:29:00 Sarbjit Duran [facility] DIFFERENTIAL COMPREHENSIVE METABOLIC 2023-02-08 18:29:00 Sarbjit Duran [facility] PANEL ESTIMATED GFR 2023-02-08 18:29:00 Sarbjit Duran spivalencia XR, knee, 1 or 2 view 2022-10-20 00:00:00 [facility] PROSTATE SPECIFIC ANTIGEN 2022-08-05 16:00:00 Gianni Guardado [facility] URINALYSI W/REFLEX CULTURE 2022-08-05 14:03:[address] [facility] Center CT CHEST WO CONTRAST 2022-08-02 15:40:14 Waylon Morfin [facility] PATHOLOGY BIOPSY 2022-07-20 19:11:00 Kameron Jung [facility] INTERPRETATION [facility] CONSENT/REFUSAL FOR 2022-07-07 22:39:26 Doctor Unasszeke, [facility] DIAGNOSIS AND TREATMENT [place] [facility] POCT SARS-COV-2 ANTIGEN 2022-07-06 15:57:00 Shawnee Mo [facility] ([facility] NOW) Medical Branch POCT MOLECULAR FLU 2022-07-06 15:31:00 Ortiz Garnica [facility] Branch COVID-19 (MOLECULAR 2022-07-06 15:23:00 Shawnee Mo [facility] TESTING Medical Branch NUCLEIC ACID AMPLIFICATION) LAB ONLY COVID 2022-07-06 15:23:00 Shawnee Mo [facility] [facility] [place] INTERPRETATION Medical Branch NOTICE OF BILLING 2022-07-06 15:13:01 Doctor Unasszeke, [facility] PRACTICES FOR MEDICARE [place] [facility] ranch PATIENTS IMMUNOGLOBULIN G SERUM 2022-06-16 17:59:00 Chema Mathur [facility] Center VITAMIN D 25 HYDROXY LEVEL 2022-06-16 17:59:00 [facility] NECK W CONTRAST 2022-06-16 13:56:23 Weeks, Christie [facility] LYMPHOMA [facility] Center CT CHEST ABDOMEN PELVIS W 2022-06-16 13:56:23 Weeks, [facility] CONTRAST LYMPHOMA [facility] BLOOD UREA NITROGEN 2022-06-16 11:49:00 [facility] CREATININE 2022-06-16 11:49:00 Weeks, [facility] URIC ACID 2022-06-16 11:49:00 Weeks, [facility] FRACTIONATED BILIRUBIN 2022-06-16 11:49:00 Weeks, Christie [facility] ALKALINE PHOSPHATASE 2022-06-16 11:49:00 Weeks, [facility] LACTATE DEHYDROGENASE 2022-06-16 11:49:00 Weeks, Christie [facility] ALANINE AMINOTRANSFERASE 2022-06-16 11:49:00 [facility] MAGNESIUM LEVEL 2022-06-16 11:49:00 Weeks, [facility] ASPARTATE AMINOTRANSFERASE 2022-06-16 11:49:00 Weeks, [facility] ELECT[facility]OL[facility]TE PANEL 2022-06-16 11:49:00 Weeks, [facility] Results CBC 2022-06-16 11:49:00 Weeks, [facility] MANUAL DIFFERENTIAL 2022-06-16 11:49:00 Weeks, [facility] SERUM CREATININE 2022-06-16 11:49:00 Weeks, [facility] .GLOMERULAR FILTRATION 2022-06-16 11:49:00 Weeks, Christie [facility] RATE [facility] ABORH 2022-06-16 11:49:00 Weeks, [facility] ANTIBODY SCREEN 2022-06-16 11:49:00 Weeks, [facility] TMP INTERPRETATION 2022-06-16 11:49:00 Weeks, [facility] ANTIBODY SCREEN NEGATIVE MD Villegas yue [facility] Center CLOT EXPIRATION DATE 2022-06-16 11:49:00 Weeks, [facility] COMPLETE BLOOD COUNT W/ 2022-06-16 11:49:00 Weeks, [facility] er Center TYPE AND SCREEN 2022-06-16 11:49:00 Weeks, [facility] er Center TOTAL PROTEIN 2022-06-16 11:49:00 Weeks, [facility] Center ALBUMIN LEVEL 2022-06-16 11:49:00 Weeks, [facility] CALCIUM LEVEL TOTAL 2022-06-16 11:49:00 Weeks, [facility] Center PHOSPHORUS LEVEL 2022-06-16 11:49:00 Weeks, [facility] GLUCOSE, RANDOM 2022-06-16 11:49:00 Weeks, [facility] XR CHEST 2 VW 2022-01-15 16:31:00 Nahun [facility] POCT MOLECULAR FLU 2022-01-15 15:55:00 [facility] Urolog - Needle Biopsy [facility] Urolog Vasectomy [facility] Knee Replacement [facility] Repair of Musculotendinous Azale a Orthopedic Cuff of Shoulder Sports Medicine Appendectomy [facility] Plan of Care Planned Activity Planned Date Details Comments Source Future Scheduled 2023-02-16 SHINGLES VACCINES (1 [facility] Test 12:23:21 of 2) [code = SHINGLES VACCINES (1 of 2)] Future Scheduled 2023-02-16 65+ P[facility]UMOCOCCAL [facility] Test 12:23:21 VACCINE (2 - PCV) [code = 65+ PNEUMOCOCCAL VACCINE (2 - PCV)] Future Scheduled 2023-02-16 COVID-19 VACCINE (4 - [facility] Test 12:23:21 Booster for Moderna series) [code = COVID-19 VACCINE (4 - Booster for Moderna series)] Future Scheduled 2023-02-16 INFLUENZA VACCINE [facility] Test 12:23:21 [code = INFLUENZA VACCINE] Diagnostic Test 2023-02-09 culture, urine [code Chidi Dawson Pending 00:00:00 = culture, urine] Urology Future Scheduled 2023-02-08 COVID-19 Vaccination [facility] Test 09:48:28 (3 - Booster for MD Tom [facility] Moderna series) [code Center = COVID-19 Vaccination (3 - Booster for Moderna series)] Future Appointment 2023-07-23 John Jordan, [address] Chidi Dawson 00:00:[address]; , [place] [address] Encounters Start End Encounter Admission Attending Care Care Encounter Source Date/Time Date/Time Type Type Clinicians Facility Department ID 2021-12-22 Outpatient SYSTEM, YASMIN HOFFMAN [id number] 13:26:45 PROVIDER Toño o rodriguez 2020-12-31 Outpatient SYSTEM, YASMIN HOFFMAN [id number] 14:44:57 PROVIDER Toño o rodriguez 2020-11-17 Outpatient SYSTEM, YASMIN HOFFMAN [id number] 12:30:05 PROVIDER Toño o rodriguez 2023-02-14 2023-02-14 Surgery Sarbjit Duran 1.2.840.1 [id number] Methodi 12:00:00 13:05:[address] 3.430.2.7 Hospit a .3.425497 l .8 2023-02-14 2023-02-14 Hospital Sarbjit Duran 1.2.840.1 [id number] Methodi 08:36:00 12:58:[address] 3.430.2.7 Hospit a .3.000784 l .8 2023-02-14 2023-02-14 Anesthesia [place], 1.2.840.1 [id number] Methodi 12:08:00 12:20:00 Event Mohamad 84042.1.[address] Ahmad 3.430.2.7 Hospit a .3.795313 l .8 2023-02-14 2023-02-14 Outpatient SARBJIT DURAN [facility] [id number] 00:00:00 00:00:[address] 2023-02-14 2023-02-14 Travel 1.2.840.1 1.2.904.332 [id number] Methodi 00:00:00 00:00:[address] 3.430.2.7 0.2.7.3.698 Ho spita .3.020892 084.8 l .8 2023-02-09 2023-02-09 Lab Sarbjit Duran 1.2.840.1 [id number] Methodi 11:15:00 11:20:[address] 3.430.2.7 Hospit a .3.721771 l .8 2023-02-09 2023-02-09 Outpatient JulianJeanine [facility] [id number] - [address] 00:00:00 00:00:00 [id number] [facility] 2023-02-09 2023-02-09 John Springer [facility] [place] [id number] 00:00:00 00:00:00 Alan Jordan MD: [id number] [facility] [place] [facility] [address], - [facility] [phone] , Ph. 2023-02-09 2023-02-09 Outpatient SARBJIT DURAN [facility] [id number] 00:00:00 00:00:[address] 2023-02-08 2023-02-08 Lab Sarbjit Duran 1.2.840.1 [id number] Methodi 13:20:00 13:25:[address] 3.430.2.7 Hospit a .3.002352 l .8 2023-02-08 2023-02-08 Outpatient SAR[facility]JIT [facility]URAN [facility] [id number] 00:00:00 00:00:[address] 2023-02-08 2023-02-08 Travel 1.2.840.1 1.2.580.829 [id number] Methodi 00:00:00 00:00:[address] 3.430.2.7 0.2.7.3.698 spita .3.521779 084.8 l .8 2023-02-08 2023-02-08 Community Sarbjit Duran 1.2.840.1 [id number] Methodi 00:00:00 00:00:[address] 3.430.2.7 Hospit a .3.910047 l .8 2023-02-01 2023-02-01 Documentat Sukhdeep 1.2.840.1 [id number] [facility] 00:00:00 00:00:00 ion Ben Solorzano 90986.1.1 ity of 3.412.2.7 [place] .3.207988 MD Gottlieb8 [facility] 2023-01-23 2023-01-23 Outpatient [facility] [id number] 00:00:00 00:00:00 [id number] [facility] 2023-01-23 2023-01-23 Outpatient Sutton_M [facility] U [id number] 00:00:00 00:00:00 [id number] [facility] 2023-01-23 2023-01-23 Outpatient Sutton_M [facility] U [id number] 00:00:00 00:00:00 02748 [facility] 2023-01-22 2023-01-22 Outpatient Sutton_M [facility] U [id number] 00:00:00 00:00:00 06147 [facility] 2023-01-20 2023-01-20 John Springer [facility] [place] [id number] [address] 00:00:00 00:00:00 Alan Jordan MD: 6560 [facility] [place] Xdt[facility] - [address] [facility], [place] [address] , Ph. 2023-01-16 2023-01-16 Outpatient Sutton_M [facility] U [id number] -[id number] 00:00:00 00:00:00 [id number] [facility] 2023-01-16 2023-01-16 Outpatient [facility] [id number] 00:00:00 00:00:00 [id number] [facility] 2022-11-25 2022-11-25 Outpatient [facility] [id number] 00:00:00 00:00:00 [id number] [facility] 2022-10-20 2022-10-20 Outpatient FOG_Fukuda_ AOSM AOSM [id number] Chante 00:00:00 00:00:00 Ashok [id number] Orth [facility] 2022-10-20 2022-10-20 Rubi H [facility] [place] - Ortho [id number] [facility] 00:00:00 00:00:00 Mery Marcano PA: [address] FOG_Ofc dic [facility] [address] [place] [address] , Ph. [phone] 2022-10-13 2022-10-13 Outpatient FOG_Fukuda_ AOSM AOSM [id number] Chante 00:00:00 00:00:00 Ashok [id number] Orth ope [facility] e 2022-10-13 2022-10-13 Outpatient FOG_Fukuda_ AOSM AOSM [id number] Chante 00:00:00 00:00:00 Ashok [id number] Orth ope dic Sports Medicin e 2022-10-12 2022-10-12 Outpatient FOG_Fukuda_ AOSM AOSM [id number] Chante 00:00:00 00:00:00 Ashok [id number] Orth ope [facility] e 2022-08-05 2022-08-05 Outpatient VICENTE GUARDADO IV, YASMIN HOFFMAN [id number] 10:58:38 23:59:00 GIANNI frias 2022-08-05 2022-08-05 [facility] Geo, 1.2.840.1 [id number] Univers 10:58:38 23:59:00 Encounter Gianni Paula 61403.1.1 ity of 3.412.2.7 [place] .3.425826 .8 Anderso [facility] 2022-08-05 2022-08-05 Office Geo, 1.2.840.1 [id number] [facility] 10:00:00 11:27:01 Visit Gianni Paula 60105.1.1 it y of 3.412.2.7 [place] .3.426529 MD Gottlieb8 [facility] 2022-08-05 2022-08-05 Outpatient VICENTE GUARDADO IV, MDA MDA [id number] 09:39:49 11:27:01 GIANNI Toño santi frias 2022-08-05 2022-08-05 Outpatient VICENTE GUARDADO IV, MDA MDA [id number] 07:59:29 10:57:00 GIANNI Toño santi frias 2022-08-05 2022-08-05 [facility] 1.2.840.1 [id number] [facility] 07:59:29 10:57:00 Encounter Gianni Paula 26814.1.1 ity of 3.412.2.7 [place] .3.454780 MD Gottlieb8 [facility] 2022-08-05 2022-08-05 Travel 1.2.840.1 1.2.905.141 [id number] [facility] 00:00:00 00:00:00 77784.1.1 350.1.13.41 ity of 3.412.2.7 [place].698 [place] .3.520[place] 084.8 MD Gottlieb8 [facility] 2022-08-02 2022-08-[address] [facility] [id number] 00:00:00 00:00:00 WAYLON Chairez [facility] 2022-07-28 2022-07-28 Telephone Gunnar, 1.2.840.1 [id number] [facility] 00:00:00 00:00:00 Lara 07244.1.1 i ty of 3.412.2.7 [place] .3.658258 MD Gottlieb8 [facility] 2022-07-20 2022-07-20 Office Kameron Jung 1.2.840.1 [id number] [facility] 13:45:00 14:23:38 Visit 60219.1.1 ity of 3.412.2.7 [place] .3.859136 .[address] [facility] 2022-07-20 2022-07-20 Outpatient KAMERON CEBALLOS [facility] [id number] 13:39:44 14:23:38 Toño frias 2022-07-20 2022-07-20 Travel 1.2.840.1 1.2.302.857 [id number] Univers 00:00:00 00:00:00 14675.1.1 350.1.13.41 ity of 3.412.2.7 [place].698 [place] .3.954987 084.8 .[address] [facility] 2022-07-19 2022-07-19 Travel 1.2.840.1 1.2.512.963 [id number] Methodi 00:00:00 00:00:[address] 3.430.2.7 0.2.7.3.698 Ho spita .3.494116 084.8 l .8 2022-07-19 2022-07-19 Transcribebe Morfin, 1.2.840.1 [id number] Methodi 00:00:00 00:00:00 Orders Waylon Neri 39994.1.[address] [place] 3.430.2.7 Hospit a .3.370676 l .8 2022-07-11 2022-07-11 Orders Keagan 1.2.840.1 [id number] Univers 00:00:00 00:00:00 Only Yifan Paula 00449.1.1 ity of 3.412.2.7 [place] .3.631258 .[address] [facility] 2022-07-08 2022-07-08 Outpatient [facility] [id number] Univers 15:30:00 15:30:00 MEIR quezada of [facility] [place] [facility] 2022-07-07 2022-07-07 Emergency [facility] [id number] Univers 17:46:00 19:00:00 LAILA ity of [facility] [place] [facility] 2022-07-07 2022-07-07 [facility] 1.2.840.114 [id number] Univers 17:46:00 19:00:00 Laila BERNARD 350.1.13.10 ity of [place].2.[place] [phone] [facility] [address] [place] 2022-07-07 2022-07-07 Telephone Chepe [facility] 1.2.840.114 [id number] Univers 00:00:00 00:00:00 Rania HEALTH 350.1.13.10 it y of [place] 4.2.7.2.686 Donald as REBEKAH?BLEA [phone] [address] MEDICAL OFFICE BUILDING 2022-07-07 2022-07-07 Letter ERIBERTO Boyce 1.2.840.114 [id number] Univers 00:00:00 00:00:00 (Out) Renee LAZO 350.1.13.10 it y of [facility] 4.2.7.2.686 Donald as [phone] [facility] [address] 2022-07-06 2022-07-06 Outpatient Kurt GARNICA [facility] [id number] Univers 10:00:00 10:58:19 ORTIZ ity [facility] 2022-07-06 2022-07-06 Urgent Shawnee Mo [facility] 1.2.840.114 [id number] Univers 10:00:00 10:58:19 Palak Garnica [facility] 350.1.13.10 ity of [place] 4.2.7.2.686 Donald as REBEKAH?BLEA [phone] [address] MEDICAL OFFICE BUILDING 2022-07-06 2022-07-06 Orders Doctor WEI 1.2.840.114 [id number] Univers 00:00:00 00:00:00 Only Unassigned, CLIFTON 350.1.13.10 ity of [place] [facility] 4.2.7.2.686 Donald as [phone] [facility] [address] 2022-06-16 2022-06-16 Outpatient CHEMA FLOWERS [facility] [id number] 12:54:49 23:59:00 Toño frias 2022-06-16 2022-06-16 [facility] Chema Mathur 1.2.840.1 [id number] [facility] 12:54:49 23:59:00 Encounter E 75169.1.1 it y of 3.412.2.7 [place] .3.819613 .[address] [facility] 2022-06-16 2022-06-16 [facility] Chema Mathur 1.2.840.1 [id number] [facility] 13:00:00 13:00:00 Visit E 81784.1.1 ity of 3.412.2.7 [place] .3.004397 MD Gottlieb8 [facility] 2022-06-16 2022-06-16 Outpatient EL WEEKS, [facility] YASMIN [id number] 06:27:05 12:53:00 CHRISTIE frias 2022-06-16 2022-06-16 Hospital Weeks, 1.2.840.1 [id number] Univers 06:27:05 12:53:00 Encounter Christie 35376.1.1 i ty of 3.412.2.7 [place] .3.742035 MD Gottlieb8 [facility] 2022-06-16 2022-06-16 Outpatient CHEMA MATHUR [facility] [id number] 12:24:31 12:46:09 Toño frias 2022-06-16 2022-06-16 Ancillary Weeks, 1.2.840.1 [id number] [facility] 07:05:00 09:30:00 Procedure Christie 86488.1.1 i ty of 3.412.2.7 [place] .3.597521 MD Gottlieb8 [facility] 2022-06-16 2022-06-16 Outpatient WEEKS, MDA MDA [id number] MD 06:54:31 06:54:31 CHRISTIE frias 2022-06-16 2022-06-16 Orders Alexandra, 1.2.840.1 [id number] Univers 00:00:00 00:00:00 Only Gale 45149.1.1 ity of 3.412.2.7 [place] .3.203175 MD Gottlieb8 [facility] 2022-06-16 2022-06-16 Travel 1.2.840.1 1.2.145.401 2012 [id number] Univers 00:00:00 00:00:00 48001.1.1 350.1.13.41 ity of 3.412.2.7 2.[place].3.698 [place] .3.799484 084.8 MD Harvey [facility] 2022-06-07 2022-06-07 Millicent Boogie, 1.2.840.1 [id number] [id number] Univers 00:00:00 00:00:00 Only Yifan Nisa 96419.1.1 ity of 3.412.2.7 [place] .3.667451 MD Harvey [facility] 2022-05-27 2022-05-27 Juanjose Quiroz, 1.2.840.1 [id number] Univers 00:00:00 00:00:00 Zahraa Hill 47853.1.1 ity of 3.412.2.7 [place] .3.130304 MD Harvey [facility] 2022-05-03 2022-05-03 Orders Alaniz, 1.2.840.1 [id number] Univers 00:00:00 00:00:00 Only Mitch 88320.1.1 ity of [place] 3.412.2.7 [place] .3.083907 MD Harvey [facility] 2022-05-03 2022-05-03 Orders Weeks, 1.2.840.1 [id number] Univers 00:00:00 00:00:00 Only Christie 16731.1.1 ity of 3.412.2.7 [place] .3.648829 MD Harvey [facility] 2022-04-12 2022-04-12 Juanjose Boogie 1.2.840.1 [id number] [id number] Univers 00:00:00 00:00:00 Yifan Paula 49218.1.1 ity of 3.412.2.7 [place] .3Chery337234 MD Gottlieb8 [facility] 2022-03-11 2022-03-11 Burke Coon, 1.2.840.1 [id number] Univers 00:00:00 00:00:00 Deangelo 85522.1.1 ity of 3.412.2.7 [place] .3.938897 .[address] [facility] 2022-03-11 2022-03-11 Millicent Coon 1.2.840.1 [id number] Univers 00:00:00 00:00:00 Only Deangelo 82518.1.1 ity of 3.412.2.7 [place] .3.748822 MD Gottlieb8 [facility] 2022-03-10 2022-03-10 Juanjose Coon, 1.2.840.1 [id number] Univers 00:00:00 00:00:00 Deangelo 51901.1.1 ity of 3.412.2.7 [place] .3.525788 .[address] [facility] 2022-01-16 2022-01-17 Outpatient [facility] [id number] 00:00:00 00:00:[address] 2022-01-15 2022-01-15 [facility] 1.2.840.114 [id number] Univers 11:15:21 23:59:00 Encounter [facility] 350.1.13.10 ity of [place] 4.2.7.2.686 Donald as REBEKAH?BLEA [id number] [facility] [address] MEDICAL OFFICE [facility] 2022-01-15 2022-01-15 Urgent [facility] 1.2.840.114 [id number] Univers 10:40:00 11:31:26 Care Chepe [facility] HEALTH 350.1.13.10 ity of [place] 4.2.7.2.686 Donald as REBEKAH?BLEA [id number] Me dical [address] 2022-01-15 2022-01-15 Outpatient R CHEPE, [facility] [id number] Univers 10:40:00 [facility]:31:[facility]22-[facility]-15 2022-01-15 Outpatient R CHEPE, [facility] [id number] Univers 10:40:00 11:31:26 [facility] 2022-01-15 2022-01-15 Outpatient R CHEPE, [facility] [id number] Univers 10:40:00 10:40:00 [facility] 2022-01-15 2022-01-[address] [facility] 1.2.830.869 [id number] Univers 00:00:00 00:00:00 [facility] 350.1.13.10 it y of [place] 4.2.7.2.686 Donald as REBEKAH?BLEA [id number] S[place] w[facility]emaral [address] 2022-01-15 2022-01-15 Orders Doctor ERIBERTO 1.2.840.114 [id number] Univers 00:00:00 00:00:00 Only Unassigned, [place] 350.1.13.10 ity of [place] [facility] 4.2.7.2.686 Donald as [id number] [address] 2021-12-21 2021-12-21 Outpatient EL GEO IV, MDA MDA [id number] 10:45:00 23:59:00 GIANNI frias 2021-12-15 2021-12-15 Outpatient KAMERON CEBALLOS MDA MDA [id number] 09:20:56 11:30:48 Toño frias 2021-11-24 2021-11-24 Outpatient EL GEO IV, MDA MDA [id number] 07:13:05 07:13:05 GIANNI frias 2021-11-22 2021-11-22 Outpatient EL GEO IV, MDA MDA [id number] 13:45:00 23:59:00 GIANNI frias 2021-09-15 2021-09-15 Outpatient KAMERON CEBALLOS MDA MDA [id number] 10:02:52 12:18:11 Toño o n 2021-09-09 2021-09-09 Telephone ERIBERTO Lopez 1.2.853.921 [id number] Univers 00:00:00 00:00:00 Roberta LAZO 350.1.13.10 it y of [facility] 4.2.7.2.686 Donald as [id number] [address] 2021-09-08 2021-09-08 Laboratory Only, Ang Db Test [facility] 1.2.8 40.114 [id number] Univers 12:59:09 13:31:59 Only [facility] 350.1.13.10 ity of [place] 4.2.7.2.686 Donald as REBEKAH?BLEA [id number] [address] MEDICAL OFFICE BUILDING 2021-09-08 2021-09-08 Outpatient Kurt BARLOW [facility] [id number] Univers 13:00:00 13:00:00 [facility] 2021-07-20 2021-07-20 Outpatient VICENTE LAZCANO, MDA MDA [id number] 12:15:41 14:30:35 SID frias 2021-07-14 2021-07-14 Outpatient KAMERON CEBALLOS MDA MDA [id number] 08:30:27 10:15:06 Toño frias 2021-06-24 2021-06-25 Outpatient CHEMA FLOWERS MDA MDA [id number] 06:38:22 09:31:14 Toño frias 2021-06-23 2021-06-23 Outpatient EL WEEKS, MDA MDA [id number] 08:49:22 23:59:00 CHRISTIE frias 2021-06-23 2021-06-23 Outpatient EL WEEKS, MDA MDA [id number] 09:45:40 09:45:40 CHRISTIE frias 2021-06-16 2021-06-16 Outpatient KAMERON CEBALLOS MDA MDA [id number] 11:39:33 15:58:04 Toño frias 2021 2021 Outpatient ALYSSA [facility] [id number] [place] [address] 00:00:00 00:00:[address] 2021-05-17 2021-05-17 Outpatient VICENTE LAZCANO, MDA MDA [id number] MD 11:46:48 14:26:25 SID frias 2021-04-20 2021-04-20 Outpatient VICENTE GUARDADO IV, MDA MDA [id number] MD 08:16:03 08:16:03 GIANNI frias 2021-04-13 2021-04-13 Outpatient VICENTE LAKEDEN, MDA MDA [id number] 16:44:08 16:44:08 SID frias 2021-03-17 2021-03-17 Outpatient KAMERON CEBLALOS MDA MDA [id number] 11:24:08 13:31:36 Toño frias 2021-01-28 2021-01-28 Outpatient VICENTE LAZCANO, MDA MDA [id number] MD 07:57:29 14:24:03 SID frias 2021-01-18 2021-01-18 Outpatient VICENTE COON, MDA MDA [id number] 09:45:00 23:59:00 DEANGELO frias 2021-01-18 2021-01-18 Outpatient KAMERON CEBALLOS MDA MDA [id number] 10:20:02 14:34:52 Toño o rodriguez 2021-01-18 2021-01-18 Outpatient KAMERON CEBALLOS MDA MDA [id number] 10:19:29 11:45:23 Toño frias 2021-01-15 2021-01-15 Outpatient EL WEEKS, MDA MDA [id number] 11:16:50 23:59:00 CHRISTIE Reyes so rodriguez 2021-01-15 2021-01-15 Outpatient CHEMA FLOWERS MDA MDA [id number] 10:00:00 11:15:00 Toño o rodriguez 2020-12-22 2020-12-22 Outpatient EL FADOL, MDA MDA [id number] 11:17:22 23:59:00 REBECCA Lundberg o rodriguez 2020-12-22 2020-12-22 Outpatient EL FADOL, MDA MDA [id number] MD 10:44:28 12:03:25 ANECITA Toño o rodriguez 2020-12-03 2020-12-03 Outpatient EL FADOL, MDA MDA [id number] 00:00:00 00:00:00 REBECCA Toño o n 2020-11-26 2020-11-26 Outpatient [facility] [id number] 00:00:00 00:00:[address] 2020-10-28 2020-10-28 Outpatient [facility] [id number] 00:00:00 00:00:[address] 2020-10-21 2020-10-21 Outpatient EL HUEN, AURIS MDA MDA [id number] 09:07:15 10:05:02 Toño o rodriguez 2020-10-13 2020-10-13 Outpatient EL GEO IV, MDA MDA [id number] 10:36:52 12:00:57 GIANNI frias 2020-10-09 2020-10-09 Outpatient EL HUEN, AURIS MDA MDA [id number] 00:00:00 00:00:00 Toño o rodriguez 2020-09-08 2020-09-08 Outpatient EL WEEKS, MDA MDA [id number] 11:23:47 23:59:00 CHRISTIE Reyes so rodriguez 2020-09-08 2020-09-08 Outpatient EL GEO IV, MDA MDA [id number] 11:55:26 16:54:16 GIANNI Lundberg o rodriguez 2020-07-23 2020-07-23 Outpatient EL KEVAN, CHEMA MDA MDA [id number] 10:55:40 12:16:57 Toño o rodriguez 2020-07-22 2020-07-22 Outpatient EL KEVAN, CHEMA MDA MDA [id number] 14:21:36 23:59:00 Toño o n 2020-07-22 2020-07-22 Outpatient EL KEVAN, CHEMA MDA MDA [id number] 11:24:56 14:20:00 Toño o rodriguez 2020-07-22 2020-07-22 Outpatient EL KEVAN, CHEMA MDA MDA [id number] 11:00:00 11:23:00 Toño o rodriguez 2020-06-02 2020-06-02 Outpatient EL FADOL, MDA MDA [id number] 11:06:43 23:59:00 REBECCA Toño o n 2020-06-02 2020-06-02 Outpatient EL FADOL, MDA MDA [id number] 11:00:00 11:05:00 ANECITA Toño o n 2020-06-02 2020-06-02 Outpatient VICENTE DAVENPORT MDA MDA [id number] 10:35:55 10:35:55 ANECITA Toño o n 2020-04-17 2020-04-17 Outpatient KAMERON CEBALLOS [facility] MDA [id number] 09:34:51 10:54:55 Toño o n Results Test Description Test Time Test Comments Results Result Comments Source ECG 12 lead 2023-02-15 02:07:11 Test Item Value Reference Range Interpretation Comme nts Ventricular rate (test code = 253) 53 Atrial rate (test code = 255) 53 MI interval (test code = 266) 180 QRSD interval (test code = 260) 118 QT interval (test code = 264) 482 QTC interval (test code = 265) 452 P axis 1 (test code = 267) 66 QRS axis 1 (test code = 268) -24 T wave axis (test code = 270) 102 EKG impression (test code = 273) Sinus bradycardia-Nonspecific intraventricular conduction delay-ST elevation, consider inferior injury or acute infarct-Consider right ventricular involvement in acute inferior infarct-Abnormal ECG-Sinus rhythm has replaced Atrial fibrillation- [facility] Pre/Post [id number] 01:10:50 Test Item Value Reference Range Interpretation Comments Ventricular rate (test 58 code = 253) Atrial rate (test code 178 = 255) QRSD interval (test 110 code = 260) QT interval (test code 440 = 264) QTC interval (test 431 code = 265) QRS axis 1 (test code -26 = 268) T wave axis (test code 25 = 270) EKG impression (test Atrial fibrillation code = 273) with slow ventricular response-Nonspecific ST and T wave abnormality-Abnormal [facility]-- [facility] [id number] 19:37:56 Test Item Value Reference Interpretation Comments Range Interpretation Negative results do (test code = not preclude COVID-19 3118232) infection and should not be used asthe sole basis for treatment or other patient management decisions. Negativeresults must be combined with clinical observations, patient history, andepidemiological information. COVID-19 Not-Detected Not-Detected DISCLAIMER:This qualitative RT-PCR test was result (test code performed using = 63260-5) the Delaplane Fusion SARS-CoV -2 Assay ([employer]). This assa y is available fo r in vitro diagnostic use under Food and Drug Administration (FDA) Emergency Use Authorizati on (EUA) and has been verified f or clinical use by the [facility]. Information on the FDA policy for diagnostic tests for coronavirus disease- 2019 i s available at:https://www. fd a.gov/medical-d ev ices/emergency- si tuations-medica l- devices/faqs-di ag nostic-testing- sa rs-cov-2It is critical that health care providers and patients review the applicable fact sheet(s) i n interpreting or understanding t he test results th at are available upon request.METHODO LO GY:This assay utilizes reagen ts for nucleic aci d amplification a nd real-time polymerase franki n reaction. COVID-19 See link below for PDF Case Number: qualitative RT-PCR Lab Report [id number] PDF (test code = 7070) [facility] RNA [Presence] in Respiratory specimen by APRIL with probe [id number] 14:37:56 Test Item Value Reference Range Interpretation Comments SARS-CoV-2 (COVID-19) RNA Not detected [Presence] in Respiratory specimen by APRIL with probe detection (test code = 02477-1) Whether patient is employed in a Unknown healthcare setting (test code = 18494-0) Whether the patient has symptoms Unknown related to condition of interest (test code = 71965-5) Whether the patient was Unknown hospitalized for condition of interest (test code = 24108-8) Whether the patient was admitted Unknown to intensive care unit (ICU) for condition of interest (test code = 61942-4) Whether patient resides in a Unknown congregate care setting (test code = 68407-6) status (test code = Unknown 59620-4) Date and time of symptom onset Unknown (test code = 11511-0) [facility] WESTUrinalysis macro (dipstick) panel - [id number] 07:57:00 Test Item Value Reference Range Interpretation Comments leukocytes (test code negative neg = leukocytes) urobilinogen (test 1.0 E.U./dL sm amt (.5-1mg/dL) code = urobilinogen) protein (test code = 100 mg/dL See_Comment [Autom ated protein) message] The sy stem which generated this result transmitted reference range : <=150 mg/d. The reference range was not used to interpret this result as normal/abnormal . pH (test code = pH) 6.0 4.5-8 blood (test code = negative See_Comment [Automat ed blood) message] The sy stem which generated this result transmitted reference range : <=3 RBC. The reference range was not used to interpret this result as normal/abnormal . specific gravity 1.025 1.005-1.025 (test code = specific gravity) ketone (test code = trace none ketone) bilirubin (test code negative neg = bilirubin) glucose (test code = negative See_Comment [Autom ated glucose) message] The sy stem which generated this result transmitted reference range : <=130 mg/d. The reference range was not used to interpret this result as normal/abnormal . color (test code = yellow yellow color) clarity (test code = clear clear or cloudy clarity) nitrite (test code = negative neg nitrite) [facility] UrologyBacteria identified in Urine by [id number] 00:00:00 [facility] UrologyCytology report of Specimen Cyto stain 2023-01-20 00:00:00Non-gynecologist [facility]ology[facility] UrologyProstate Specific Antigen (PSA) [id number] 16:47:59 Test Item Value Reference Range Interpretation Comments PSA (test code = 6.2 ng/mL 0.0-4.0 H Results gre ater than 2857-1) 4519 ng/mL may not be reliable due to matrix effect w ith extended diluti on as it exceeds the soda dry house operator's recommended delacruz it. Caution should be exercised when interpreting betts ch values and done in conjunction wit h clinical context.Testing Performed at [facility], [address], [place] [address] PSA Indication (test Screening code = 84205-0) Lab Interpretation Abnormal (test code = 57155-1) [facility] [id number] 14:44:53 Test Item Value Reference Range Interpretation Comments UA Color (test code Straw Straw-Yellow = 61476-8) UA Appear (test code Clear Clear = 23573-7) UA Glucose (test NEG NEG mg/dL code = 5792-7) UA Bili (test code = NEG NEG 5770-3) UA Ketones (test NEG NEG mg/dL code = 5797-6) UA Spec Grav (test 1.012 1.003-1.035 code = 5810-7) UA Blood (test code NEG NEG = 5794-3) UA pH (test code = 7.0 5.0-9.0 5803-2) UA Protein (test NEG NEG mg/dL code = 5804-0) UA Urobilinogen NEG NEG (test code = 5818-0) UA Nitrite (test NEG NEG code = 5802-4) UA Leuk Est (test NEG NEG code = 5799-2) UA Comment (test See Comment No microsco pic exam code = 34204-0) performed, physiochemical findings are ne [facility] Biopsy Interpretation 2022-07-21 18:22:56 Test Item Value Reference Range Interpretation Comments Submitted Clinical History w6xnqIVrZBAajPU4GCM (test code = 62094) hRIRtp3xot7FhbNCnhV DbJAomvNKezyFfnr95z IY2aY89ZJ6vPZYiOaW8 KPBblcT6Keb6NNCdSCK tuFObU520b4iil4qezl BvdLH0lSooAALfxqkvS mG2IWpaGFPtwzcdVVb2 TZovCQBzvDN9XAOyfMY iW0ChWTYlMH2ahcj0MS U2ISvzBWClZwV4VOKkw HJjUKZclYuvWZnxy245 DLM7AsPhQZWtpyHbfWv aeU5mJeIgBTQOAgMRVN emqjOvZ5DLTXJdbkXML zVYY8HsytJkDHURIMFd cGFyfQ== Diagnosis (test code = 34) j3pdyNRpMOSuyAZ3WNP sKMGhv1uxl1EjcMRvaD DtIDmpnLRufaFceo57w HU2gG70BO3sNBLzZlS5 IHWtziB8Qnx3CKLxEIQ cwFBuD100g3prl2xxvs VdmBV1RBOgONOsI7VfS W0fVZHvuGAxI89smUUr TPI4WKQpHHHouWQwHVO fJIK1BCLwlHGpM5vrJB SwHX8mzzusNOlzASayQ IQfbBT1WJVunOBzX5Oy ODWhPNpcQBQmbww5TvI oYz1aaFUckWueCMnkMR JkXHBsYWluXGZzMjBcY 8MkKFQ4FVEbkO2vKNBt D4x3MEVaOBOyBXMmrTI 2ZTpccGFyXGxpNzIwXG keohkjDLhbStSkT52vb 4wbeATflDU6wLTdZWDu RTEtyQOhwlZvA1rbpCX ed6L3rG4lCI0hFGOqOM HkjFpsiWPgk3GzTDJtt 2lzIHdpdGggdmVycnVj m7OfJWIiEVW3kdGwCWD aehFmZD65BIA9PDNax8 A2IUDeKTmeyr9wiKIcW UmnKXzqvD6zMJFaczdw NkVxOcryX6zfqmrrrjc qqLVslCEdRUP3dLmlCH XvpJjsaRpws9lmtlC5U CFosqaerHjePSsdzS62 YwLlW2IqYLh1pVWklNf qz0EiWvPeL7QswexzUI jzibU0u6LwrnN1mHOqE UOelxA4C810wwRePUP0 qGUcezyvqAMgj4DolEC rbGP0bHGctWVdHNWeLG TtQGUoxvnrOBTmTLM0s TydRQleQ3QxaOMfRMt8 TT0mVPUpZCZdHIPfTOA oGY8uCQVvHHLawGDkaD 3hwu4wG1L4ZJ3gfRQmN 8BplSFcNGWrjA5vpDIa cJEgrr00FOKtxQXdMNJ fdCerxfHgRVYyy5U1Be xwYXJ9 Gross Description (test x2mroCXnAUGpdHZRIDb code = [id number]) wMVxhbnNpXHNwbHRwZ3 KvtulbDNenTW7gDN1fe UdbiNIhmTXkIT3UAOEx ZmYxXHBhcGVydzEyMjQ wHANluHMosGU8VNPaNI 1hcmdsMTgwMFxtYXJnc eW2CGFdkOUhQ1IoRVAh XT6durxmKKR4WOmvzV7 yubWRSccgRu2ffVHfzC tcZjFcZmNoYXJzZXQwX TRzvAtwRVExWSn4iS9T AysaX15dr7C0Fwd5TUN nMMGqD4GmNI8jESGbbH OcD38WOmbjSYF2MDSGI ffcWQTpDL8Ew6rfSOLn cMWpBUR9KSrixMGtGTD jPMOjJDe7WGFpLRtqnN SmPU7afIcgNheilTkfa 2VjdCBcXGlkIDUxMDAy LQnlZYSuMM3PTuKbKPA vHKO9EtRbQNw4KSb2LF 2ZNqKoNZHqAWO8RVJ1L xUzSLx8BHktLN1YBPQk FUOiACT8BARbJYTwCVS cEBr7NWZhZUxzSCAyfQ FsIFxcZnMgMTAgXFxmY sItUKTeETabqpC9CBNd YWluXGJcZnMyMCBBOlx lLPUvOHzyyMtupD7iZH HzH62ja7PBy2KnTJ1JY Tp3gdUsunkwyJ6kHTGy sfMuGNnyuXEtQ9tzBut tVvCeCoKbBKFKe3axUI BhLiByIGNoZWVrIDpcY dXuZ6EjPBOYKOJtGPR3 JLAaFpI9TQHjHEUysKc mcOFpAFXazA5yr2utnh YqWLETrVHahV3pf9zis PDilKJjH3wpPNbgHHez i6SzGIGfhvIlwoDjlIX gsLOypJB3VCMeoU3zNT EuICBccHJvdGVjdHtcZ vhgsHH9MOqaIdzwlA1y dCBIWVBFUkxJTksgbmF nFN6QQH4EVbYEUU25Fc WxZVF4INbMC6LVzPP9T oe4FAv2xXlfYjzncsUu rQUbWcJUdF6MAEqnBgu zgUC5BMubNyrdsV6rxR BIWVBFUkxJTksgbmFtZ A8HCC7EHP0AkIYdKJU9 rIS0OHQQEmeivXX9qRU 9hK49PRRwCNCuxAKtPX xbD302WTKkFYweWOo3m mNoXGZzMjAgDQpcZXBp K56zm8KSf4JeUMOsn1s ywMevm8VevAXoYBymRM YnfQJxCXuqbS1uGwJgd 8tlhTi1IZysjzL5EXOy sm6cyEunbP2sEYu8JBj iJHQjQ1SoL8MmKQavCW T2BYYtKpCfFVPjBNRHC lIgIiAxMDkzNTMzIiA5 LOr4DKMUFaWwKoTlDQL rSOM7ObmcKUn9ZPm9OL cENgHgPLWgDSc8PCB4V RQ9GZMzEIrqrWYgGHnf ZiBBcmlhbCBcXGZzIDE wIFxcZmIgXFxmbCBcXG 5jfVxwbGFpblxiXGZzM xUvPnacaVOlBT2APCZo ESksACGwuQJMUMN5GP0 jMSANClxsdHJwYXJcbG leISlnwX7yWG8ZZDg2g mYhWEBcP6ZyRFVdPxSh U4chiqbwGk8iqzLyCH0 cMIWhqEUlITAnR1x5CU iyYcQfU3HmQQDTCUTwM dE0RJIeIuC7VYXxUbTe zBmcdNFcLOQesM6gh1u hdmUuICBUaGVyZSBpcy IzMXZaj4jcDDxij3esr pQkqeY2xVQuw1pbgmwi LR5rMYduGG5eDEXcHlW gVGhlIHNwZWNpbWVuIG odTPbhr7RpRRUipIRdW 2BqCFhwES39eOSedEqd p9VqfMn9dMHhSOlzUKK tTzZbATLtg6LmO8S0UA LiFIxdl3juWHZcPDxyb 0LjCShFQQPWTR3BPT3d hXA7GUmXI1JUA0zCgEW uIFX4fTW4FJAJBgrppZ Y0jHQ5uX75SKNaUIFmq PWhETllB592QZD4UNWl SJrfa7kiYGCvVSagu6P hPWrLZOTAOB4KJC3bkT A1FEdVK1XXVCcsXZOxE jcrsIBYVNQ9PHeluVou uYu7d5clcHBqr0x3LMq jTTI9nGlhaHZqpzywoM WapKghtoAlHM8PZRWgg KZXRZJ2QC7kKQn6IKpq TMWaZ5BmO9EccmSiyYF cADMowoSkl0pxXXW8MY NsbXVsdDBcZnMxNlxwY HX4VSObIYakQQ9SGBQs EAC2YMjvmX04jGIyYV9 KXHBsYWluXGZzMTZcdj W8KVQzkLVzVHB9YQ3wy DzvdHVmcxjgfhT3ZO1E fQ== Disclaimer (test code = g9lwqOWdNSYhbLSxSrW 9844) oCXAkQAJoo0vuHQCqkD FuZzEwMzNcZnRuYmpcd JZmIWGxMmAto3tap290 aQJbq4kkYJUjRyB6zTW jPUOmwMEeP428YCBjDT uir8gkl2NqIMRfgQRaq 0G5WSKDuiyisVn6mAvi Y51af2J0YjjeM8peHLV hSDYqX1AyMB6xRMOlOx x2KWT4ZTB6EWDuHRKfP 0CaAB5cOFXopHErQKd1 t5kvfSioAEMpKGZ7h1u cUAduriLhGI8zhh1lcU c2w5lhlwOwHTHhJRCju ZUIFANeZ5LtwKyzJh6r cIe0aAwfGuqjMBP1Keu 2ZK9tmj86wzx6gXlhCO WycpmnRjB4LQlvYBZpy jwoPVp6GJxuNBRqmRK6 XZNorBQjU8DeKVJcCI7 txal0JWL0TGhoOFYjVs X4PAPmnKHiDBKwfCorE Qzfk299LCM6UhIpQS0g D5Xgk2B7hX4tuNQuYCC rmMCgSpBfEXLoys0fpS BbGKphl5JsAQQ9xpY2q RKqiSMmOHImBK42Lzcs b4ZuBlwkKPT9EHVjhnN oh6Afx7lsDsNkwsKeD8 ygE5VhXVAbWUNeADFnP rYfdfDgs8Eiy7LphBXv hZs6l3npGBUoEOHpdHc hk2erAUY5CGXoT4B1sN Cio4qzBHzqUNCxbWU6a lX0AXGheKCxW1SdxI1d XIXxWP0mpet2k1xqSNO 3SDijPTXaBtA3bnN3KL BcaGVhZGVyeTcyMFxmb 384UDY2SnTiSIDzk5Fp Z4BzfSqzB88msXwaL83 wUPWzzWtdcM6nuEsjfB 5cZjBcZnMyNFxxbFxwb UQfhfbiWAijgdP8AYsd padiCXJzUJjuO4kiYvL fLHMbaEwlVTvmx1WbGJ YaHEMcIeyzceS0YCWGz 52yUQEad0AzVGCqmB7r zPYzZObfzaCzrKD9ANo hdmUgYmVlbiBkZXZlbG 3wZPExCF0wPNTtfsHry u4lxyOpCKNzTQXkA1Jv cmlzdGljcyBkZXRlcm1 joyCvDJU0JKMFZE9UIW CeHGFve99jMGJspCiyr D1xgDTnptUqXWKbs9Mt mW8spGKBXAWoU9fyAI4 zNVlsi6IxsXChjFBbpY S9RVEjv1PaPnJoddTgb DMipLBnF0NauKpnI5dm DGYcJEQpdtKyuIZqk6N sCMEacTT7rXGnSM9WPa RWk41mTVCgJVMSebSpK XHnuMgtoXN5clO2vL5q LiBJZiBhcHBsaWNhYmx vFFZix218lm5gwkC0KP VaKHIopqcrr3RiLVYjK PDvrO39WJTxQWIrkh6s hjdeoPZxysNlI7Ebgkz 9hV0eRTVdWHktGDNjVJ ZzMjJcbGFuZzEwMzNca GljaFxmMVxkYmNoXGYx TWzeV3hbJpXoEqOsJvu wYXJ9 [facility] SARS-COV-2 ANTIGEN (BINAX NOW) 2022-07-06 15:57:00 Test Item Value Reference Range Interpretation Comments POCT SARS-COV-2 ANTIGEN (test Not Detected Not Detected code = 5076) On board controls acceptable Yes with C Line (test code = 3574) Lab Interpretation (test code = Normal 62678-0) [facility] SARS-COV-2 ANTIGEN (BINAX NOW)2022-07-06 15:57:00 Test Item Value Reference Range Interpretation Comments POCT SARS-COV-2 ANTIGEN (test Not Detected Not Detected code = 5076) On board controls acceptable Yes with C Line (test code = 3574) Lab Interpretation (test code = Normal 97448-5) [facility] MOLECULAR [id number] 15:43:51 Test Item Value Reference Range Interpretation Comments POCT Molecular FluA (test code = Negative Negative 26277-6) POCT Molecular FluB (test code = Negative Negative 19394-6) Lab Interpretation (test code = Normal 18263-2) [facility] MOLECULAR [id number] 15:43:51 Test Item Value Reference Range Interpretation Comments POCT Molecular FluA (test code = Negative Negative 39310-2) POCT Molecular FluB (test code = Negative Negative 87994-1) Lab Interpretation (test code = Normal 03839-7) [facility] 20:15:59 Test Item Value Reference Range Interpretation Comments IgG (test code = 6001) 747 mg/dL 610-1616 [facility] [id number] 19:08:23 Test Item Value Reference Range Interpretation Comments Vitamin D 25 OH (test 30 ng/mL 30-100 Refere nce Range: code = 85614-6) Deficiency: <10 ng/mLInsufficie ncy: 10-29 ng/mLSuff iciency: 30-100 ng/mLPot ential toxicity: >100 ng/mL [facility]anoTMP Interpretation Antibody Screen [id number] 16:20:44 Test Item Value Reference Range Interpretation Comments TMP Auto Neg At the present ABSC Interp time, patient (test code = plasma shows no ____ALEXANDER SMITH MD 4388) evidence of RBC - 74539Kapls micaela by: alloantibodies. ALEXANDER THOMAS MD - [id number] D ate/Time: 06.16.2022 11:2 0 AM CDT Transcribed [place] e/Time: 06.16.2022 11:2 0 AM CDTElectronical ly Signed By: ALEXANDER CASAREZ MD - [id number] on 05.24 11:20 AM [facility]anoABORh2022-08-25 14:16:06 Test Item Value Reference Range Interpretation Comments ABORh. (test code = 882-1) O POS [facility] PlanoClot Expiration [id number] 14:16:01 Test Item Value Reference Range Interpretation Comments T & S Expiration (test code = 06/19/2022 5318) [facility]anoAntibody [id number] 14:15:37 Test Item Value Reference Range Interpretation Comments ABSC. (test code = 890-4) Negative ABSC [facility] PlanoFractionated [id number] 12:57:21 Test Item Value Reference Range Interpretation Comments Bili Total (test 0.5 mg/dL <=1.2 Indocyanine Green (ICG) code = 1974-) may cause fal sely elevated biliru bin results. Total and direct bilirubin must not be measured from s amples containing indo cyanine green. False el evation of total bilirubin can be seen in patient s with IgG concentrations above 28 g/L. Bili Direct (test <=0.3 Indocyanin e Green (ICG) code = 1967-7) may cause fal sely elevated biliru bin results. Total and direct bilirubin must not be measured from s amples containing indo cyanine green. Bili Indirect (test See Note 0.0-0.9 Unable t o calculate code = 1970-1) Indirect Bili olson result due to some par ameters are outside rep ortable range [facility] PlanoGlucose, [id number] 12:57:20 Test Item Value Reference Range Interpretation Comments Glucose Random (test 124 mg/dL 70-199 Effecti ve 05/18/16, the code = 2345-7) glucose refer ence intervals have been updated based o n [place] [employer] zeny delines (Standards of M edical Care in Diabete s 2016. Diabetes Care 2 016; 39: S13-S22).Fastin g blood glucose:Normal: 70-99 mg/dLImpaired f asting glucose (increa sed risk for diabetes or pre-diabetes): 100-125 mg/dLDiabetes m ellitus: >/=126 mg/dL Ra ndom blood glucose:N ormal: 70-199 mg/dLNot e: Random glucose >100 mg /dL is associated with increased risk for diabetes [facility] PlanoPhosphorus [id number] 12:57:19 Test Item Value Reference Range Interpretation Comments Phosphorus (test code = 2777-1) 3.1 mg/dL 2.5-4.5 [facility] PlanoLDH2022-08-25 12:57:17 Test Item Value Reference Range Interpretation Comments LDH (test code = 241 U/L 135-225 H Results gre ater than 65734-7) 1651 U/L may no t be reliable due to matrix effect w ith extended diluti on as it exceeds the soda dry house operator's recommended delacruz it. Caution should be exercised when interpreting betts ch values and done in conjunction wit h clinical contex t. Lab Interpretation (test Abnormal code = 86285-8) [facility] PlanoCalcium [id number] 12:57:16 Test Item Value Reference Range Interpretation Comments Calcium Lvl (test code = 35609-1) 8.9 mg/dL 8.4-10.2 [facility] PlanoAlbumin [id number] 12:57:15 Test Item Value Reference Range Interpretation Comments Albumin Lvl (test code 4.2 See_Comment [Aut omated message] The = 7758) system which ge nerated this result tra nsmitted reference range : 3.5 - 5.2 gm/dL. The refe rence range was not used to interpret this result as normal/abnormal . [facility] PlanoAspartate Aminotransferase 2022-06-16 12:57:14 Test Item Value Reference Range Interpretation Comments AST (test code = 1920-8) 21 U/L <=40 [facility] PlanoElectrolyte [id number] 12:57:13 Test Item Value Reference Range Interpretation Comments Sodium Lvl (test code = 139 See_Comment [Au tomated message] The 2951-2) system which ge nerated this result tra nsmitted reference range : 136 - 145 mEq/L. The reference range was not u sed to interpret this result as normal/abnormal . Potassium Lvl (test 4.1 See_Comment [Automa micaela message] The code = 2823-3) system which generated this result tra nsmitted reference range : 3.5 - 5.1 mEq/L. The reference range was not u sed to interpret this result as normal/abnormal . Chloride (test code = 103 See_Comment [Auto mated message] The ) system which ge nerated this result tra nsmitted reference range : 98 - 107 mEq/L. The refe rence range was not u sed to interpret this result as normal/abnormal . CO2 (test code = 28 See_Comment [Automated message] The 2028-06) system which ge nerated this result tra nsmitted reference range : 22 - 29 mEq/L. The refe rence range was not u sed to interpret this result as normal/abnormal . Anion Gap (test code = 8 See_Comment [Aut omated message] The ) system which ge nerated this result tra nsmitted reference range : 4 - 14 mEq/L. The refe rence range was not u sed to interpret this result as normal/abnormal . [facility] PlanoGlomerular Filtration Rate 2022-06-16 12:57:11 Test Item Value Reference Range Interpretation Comments eGFR-AA (test code = 65 See_Comment Normal eGFR: >= 60 08852-0) mL/min/1.73 m2N ote: The eGFR is edmund culated using the CKD-E PI equation. The e GFR declines with a ge. eGFR <60 mL/min /1.73 m2 is considere d as "decreased". Th is equation should only be used for pat ients 18 and older. According to th e National Kidney [employer]'s Ki dney Disease Outcome Quality Initiat sara (KDOQI) classif ication and 2012 Kidney Disease Improvi ng Global Outcomes (KDIGO) Clinica l Practice Guidel ine, the stage of CK D should be categ orized based on estima micaela GFR. Stage Desc ription GFR mL/min/1.73 m21 Normal or high GFR >=902 Mildly de creased GFR 60-893a Mil dly to moderately decr eased GFR 45-593b Mod erately to severely dec reased GFR 30-444 Nichole rely decreased GFR 1 5-295 Kidney failure <15 [Automated mess age] The system [employer] generated this result transmitted ref erence range: >=60 mL/min/1.73 sq. m. The reference range was not used to int erpret this result as normal/abnormal . eGFR-APRIL (test code = 56 See_Comment L Normal eGFR: >= 60 95573-2) mL/min/1.73 m2N ote: The eGFR is edmund culated using the CKD-E PI equation. The e GFR declines with a ge. eGFR <60 mL/min /1.73 m2 is considere d as "decreased". Th is equation should only be used for pat ients 18 and older. According to th e National Kidney [employer]'s Ki dney Disease Outcome Quality Initiat sara (KDOQI) classif ication and 2012 Kidney Disease Improvi ng Global Outcomes (KDIGO) Clinica l Practice Guidel ine, the stage of CK D should be categ orized based on estima micaela GFR. Stage Desc ription GFR mL/min/1.73 m21 Normal or high GFR >=902 Mildly de creased GFR 60-893a Mil dly to moderately decr eased GFR 45-593b Mod erately to severely dec reased GFR 30-444 Nichole rely decreased GFR 1 5-295 Kidney failure <15 [Automated mess age] The system [employer] generated this result transmitted ref erence range: >=60 mL/min/1.73 sq. m. The reference range was not used to int erpret this result as normal/abnormal . Lab Interpretation Abnormal (test code = 81472-9) [facility] PlanoUric [id number] 12:57:10 Test Item Value Reference Range Interpretation Comments Uric Acid (test code = 3084-1) 5.5 mg/dL 3.4-7.0 [facility] PlanoTotal [id number] 12:57:09 Test Item Value Reference Range Interpretation Comments Total Protein (test code = 2885-2) 6.4 g/dL 6.4-8.3 [facility] PlanoMagnesium [id number] 12:57:08 Test Item Value Reference Range Interpretation Comments Magnesium (test code = 50635-9) 2.1 mg/dL 1.6-2.6 [facility] PlanoAlkaline [id number] 12:57:07 Test Item Value Reference Range Interpretation Comments Alk Phos (test code = 6768-6) 74 U/L 40-129 [facility] PlanoAlanine [id number] 12:57:06 Test Item Value Reference Range Interpretation Comments ALT (test code = 1742-6) 13 U/L <=41 [facility].Serum [id number] 12:57:05 Test Item Value Reference Range Interpretation Comments Creatinine (test code = 2160-0) 1.19 mg/dL 0.67-1.17 H Lab Interpretation (test code = Abnormal 71948-2) [facility] PlanoBUN2022-08-25 12:57:04 Test Item Value Reference Range Interpretation Comments BUN (test code = 3094-0) 18 mg/dL 6-23 [facility] PlanoDifferential2022-08-25 12:04:16 Test Item Value Reference Range Interpretation Comments Neutrophil % (test code 58.5 % 42.0-66.0 As p art of = 770-8) Differential performed at [facility], [address], [place] [address] Lymphocyte % (test code 26.7 % 24.0-44.0 = 736-9) Monocyte % (test code = 12.3 % 2.0-7.0 H 5905-5) Eosinophil % (test code 1.7 % 1.0-4.0 = 713-8) Basophil % (test code = 0.5 % 0.0-1.0 17352-2) IGRE % (test code = 0.3 % 0.0-0.4 IGRE % c ount includes 13192-3) Metamyelocytes, Myelocytes, and Promyelocytes. As part of Differe ntial performed at [facility], [address], [place] [address] Neutrophil Abs (test 3.48 K/uL 1.70-7.30 code = 751-8) Lymphocyte Abs (test 1.59 K/uL 1.00-4.80 code = 731-0) Monocyte Abs (test code 0.73 K/uL 0.08-0.70 H = 742-7) Eosinophil Abs (test 0.10 K/uL 0.04-0.40 code = 711-2) Basophil Abs (test code 0.03 K/uL 0.00-0.10 = 704-7) IG Abs (test code = 0.02 K/uL 0.00-0.04 28987-2) Lab Interpretation Abnormal (test code = 66885-8) [facility] [place].[id number] 12:04:10 Test Item Value Reference Range Interpretation Comments WBC (test code = 6.0 K/uL 4.0-11.0 6690-2) RBC (test code = 789-8) 4.49 See_Comment L [Au tomated message] The system [employer] generated this result transmitted ref erence range: 4.50 - 6 .00 M/uL. The refer ence range was not u sed to interpret this result as normal/abnor mal. Hgb (test code = 718-7) 14.0 See_Comment As p art of CBC or as an individual orderable testi ng performed at [facility], [address], [place] [address] [Automate d message] The sy stem which generated this result transmit micaela reference range : 14.0 - 18.0 gm/dL. T he reference range was not used to int erpret this result as normal/abnormal . Hct (test code = 42.4 % 40.0-54.0 As part of CBC or as 4544-3) an individual orderable testi ng performed at [facility], [address], [place] [address] MCV (test code = 787-2) 94 fL 82-98 MCH (test code = 785-6) 31.2 pg 27.0-31.0 H MCHC (test code = 33.0 See_Comment [Automate d message] 786-4) The system whic h generated this result transmitted ref erence range: 31.0 - 3 6.0 gm/dL. The refe rence range was not u sed to interpret this result as normal/abnor mal. RDW-SD (test code = 46.5 fL 35.1-46.3 H 42624-0) RDW-CV (test code = 13.3 % 12.0-15.5 788-0) Platelet count (test 211 K/uL 140-440 As part of CBC or as code = 777-3) an individual orderable testi ng performed at [facility], [address], [place] [address] MPV (test code = 9.2 fL 4.0-10.4 94071-8) INRBC (test code = 0.0 % <=0.0 The INRBC (instrument 71944-5) NRBC) value ref lects the enumeration of nucleated red b lood cells contained in a 200uL sampleof whole blood analyzed by the instrument. Thi s value maydiffer from the NRBC value repo rted in a manual differential,wh ich is based on a 100 cell differential. A s part of CBC testing performed at [facility] [id number], [place], [place] [address] Lab Interpretation Abnormal (test code = 61950-8) [facility] MqhfrgOLZQ-EgJ-9 (COVID-19) RNA [Presence] in Respiratory specimen by APRIL with probe [id number] 05:50:37 Test Item Value Reference Range Interpretation Comments SARS-CoV-2 (COVID-19) RNA Not detected [Presence] in Respiratory specimen by APRIL with probe detection (test code = 64305-5) Whether patient is employed in a Unknown healthcare setting (test code = 31271-8) Whether the patient has symptoms Unknown related to condition of interest (test code = 02060-0) Whether the patient was Unknown hospitalized for condition of interest (test code = 14568-1) Whether the patient was admitted Unknown to intensive care unit (ICU) for condition of interest (test code = 58783-0) Whether patient resides in a Unknown congregate care setting (test code = 10057-0) status (test code = Unknown 41916-2) Date and time of symptom onset Unknown (test code = 87830-8) [facility] MOLECULAR [id number] 16:07:22 Test Item Value Reference Range Interpretation Comments POCT Molecular FluA (test code = Negative Negative 55788-6) POCT Molecular FluB (test code = Negative Negative 54006-3) Lab Interpretation (test code = Normal 52142-5) [facility]-CoV-2 (COVID-19) RNA [Presence] in Respiratory specimen by APRIL with probe [id number] 21:23:39 Test Item Value Reference Range Interpretation Comments Whether the patient has symptoms related to condition of interest (test code = 56556-4) Whether the patient was admitted to intensive care unit (ICU) for condition of interest (test code = 08689-8) Whether patient resides in a congregate care setting (test code = 42640-4) ALAN AGUILAR
[2023-02-16] MEDS ORDERED: LEVALBUTEROL 1.25 MG/3 ML NEB ONE (13:32)
[2023-02-16 13:36] LABS: Absolute Lymphocytes (CBC) 0.8 K/uL (0.7-4.9); Hematocrit 40.8 % (39.6-49.0); Lymphocytes % 7.2 % (15.3-44.8); MCV 93.6 fL (80-100); MPV 7.1 fL (7.6-11.3); RBC Red Blood Cell Count 4.36 M/uL (4.33-5.43)
[2023-02-16 13:37] LABS: Protime INR 1.35
[2023-02-16 13:48] LABS: Albumin 2.9 g/dL (3.4-5.0); Bilirubin Direct 0.2 mg/dL (0-0.2); Bilirubin Total 0.7 mg/dL (0.2-1.0); Magnesium 1.9 mg/dL (1.6-2.4); Potassium 4.1 mEq/L (3.5-5.1); Protein, Total 6.4 g/dL (6.4-8.2); Troponin High Sensitivity 49.1 pg/mL (<58.9)
--- NOTE | 2023-02-16 14:12 | RAD REPORT ---
EXAM DESCRIPTION: [place] Single View02/16/2023 1:29 pm CLINICAL HISTORY: SOB COMPARISON: No comparisons TECHNIQUE: Portable AP view of the chest. FINDINGS: Diffuse interstitial prominence with patchy mostly peripheral reticular and hazy opacities . No pneumothorax or effusion. The cardiomediastinal contours are unremarkable. IMPRESSION: Diffuse interstitial prominence and patchy mostly peripheral reticular and hazy opacitie s. Findings may relate to atypical pneumonia or interstitial lung disease.
[2023-02-16] MEDS ORDERED: MAGNESIUM SULFATE 1 gm IVPB 1 GM/100 ML BAG IV ONE (14:50)
[2023-02-16] MEDS ORDERED: METHYLPREDNISOLONE 125 MG INJ ONE (14:50)
--- NOTE | 2023-02-16 15:01 | RAD REPORT ---
EXAM DESCRIPTION: CT - Chest For Pe Angio - 02/16/2023 2:29 pm CLINICAL HISTORY: SOB COMPARISON: Chest Single View dated 02/16/2023 TECHNIQUE: Thin axial CT images of the chest were obtained following administration of 95 mL Isovue 370 IV contrast. Multiplanar reconstructions, and maximum intensity projection reconstructions were g enerated and reviewed. Exam utilizes a protocol for optimal evaluation of pulmonary arterial tree. All CT scans are performed using dose optimization technique as appropriate and may include automated exposure control or mA/KV adjustment according to patient size. FINDINGS: Pulmonary arteries are normal. No emboli or other suspicious finding. No acute or signific ant aorta findings. No discrete masses or consolidation. Bilateral small to moderate layering effusions. Central intersti tial prominence, with patchy ground-glass opacities, more in the dependent aspects of the lung. No pl eural thickening. No pneumothorax. No abnormal mediastinal or hilar masses or lymphadenopathy seen. No chest wall mass or abnormal axill iary lymphadenopathy. IMPRESSION: No evidence of acute central pulmonary emboli. Central interstitial and ground-glass opacities with layering effusions. Findings are most suggestive of pulmonary edema.
--- NOTE | 2023-02-16 15:56 | EDPHYS ---
Physician Documentation [facility] Name: Garth Sarkar Age: 82 yrs Sex: Male : 1940 Arrival Date: 02/16/2023 Time: 12:44 Bed 10 Private MD: ED Physician John Quijano HPI: 02/16 13:04 This 82 yrs old Male presents to ER via Wheelchair with complaints of Low O2. m 13:04 The patient has shortness of breath at rest. Onset: The symptoms/episode began/occurred jmm gradually, this morning. Is an 82-year-old male with history of hypertension, COPD, atrial fibrillation the presents emerged part with complaints of shortness of breath worsening throughout the day. Patient is 2 days status post cardioversion for atrial fibrillation. Denies chest pain. Denies fever.. Historical: - Allergies: 12:58 Codeine; ll1 - PMHx: 12:58 Hypertension; OA; Atrial fibrillation; ll1 - PSHx: 12:58 cardioversion from A fib; ll1 - Immunization history:: Client reports receiving the 2nd dose of the Covid vaccine. - Social history:: Smoking status: Patient denies any tobacco usage or history of. ROS: 13:04 Constitutional: Negative for fever, chills, and weight loss. jmm 13:04 Cardiovascular: Positive for 13:04 Respiratory: Positive for shortness of breath. 13:04 All other systems are negative. Exam: 13:04 Constitutional: This is a well developed, well nourished patient who is awake, alert, jmm and in no acute distress. Head/Face: atraumatic. Eyes: EOMI, no conjunctival erythema appreciated ENT: Moist Mucus Membranes Neck: Trachea midline, Supple Chest/axilla: Normal chest wall appearance and motion. Cardiovascular: Regular rate and rhythm. No edema appreciated Respiratory: Normal respirations, no respiratory distress appreciated Abdomen/GI: Non distended Back: Normal ROM Skin: General appearance color normal MS/ Extremity: Moves all extremities, no obvious deformities appreciated, no edema noted to the lower extremities Neuro: Awake and alert Psych: Behavior is normal, Mood is normal, Patient is cooperative and pleasant Vital Signs: 12:56 BP 131 / 68; Pulse 69; Resp 22; Temp 98.2; Pulse Ox 84% on R/A; Weight 78.02 kg; Height ll1 5 ft. 8 in. ; Pain 0/10; 13:00 Pulse Ox 94% on 2 lpm NC; ll1 14:41 BP 141 / 79; Pulse 66; Pulse Ox 93% on 4 lpm NC; ap3 19:00 BP 141 / 79; Pulse 68; Resp 19; Temp 98(O); Pulse Ox 98% on 3 lpm NC; Pain 0/10; pf1 20:00 BP 122 / 73; Pulse 59; Resp 20; Pulse Ox 97% 3 lpm ; Pain 0/10; pf1 12:56 Body Mass Index 26.15 (78.02 kg, 172.72 cm) ll1 12:56 Pain Scale: Adult ll1 19:00 Pain Scale: Adult pf1 20:00 Pain Scale: Adult pf1 MDM: 13:04 Patient medically screened. [facility] 16:45 Differential diagnosis: Anemia asthma, Bronchitis CHF exacerbation, Chronic Obstructive [facility] Pulmonary Disease pneumonia, Pneumothorax pulmonary edema, Pulmonary Embolism reactive airway disease, Sepsis. Data reviewed: vital signs, nurses notes, lab test result(s), EKG, radiologic studies, CT scan, plain films. Consideration of Admission/Observation Patient was admitted/placed on observation. Management of patient was discussed with the following: Hospitalist: Dr. Espinal. I considered the following discharge prescriptions or medication management in the emergency department Medications were administered in the Emergency Department. See MAR. Historians other than the Patient: . Counseling: I had a detailed discussion with the patient and/or guardian regarding: the historical points, exam findings, and any diagnostic results supporting the discharge/admit diagnosis, lab results, radiology results, the need for further work-up and treatment in the hospital. ED course: Patient and family had a preference to be transferred to [facility] the [facility]. Unable to transfer due to hospital capacity. Patient now has a request to be admitted to this hospital.. 02/16 13:05 Order name: Basic Metabolic Panel; Complete Time: 13:50 [facility] 02/16 13:05 Order name: CBC with Diff; Complete Time: 13:43 [facility] 02/16 13:05 Order name: LFT's; Complete Time: 13:50 [facility] 02/16 13:05 Order name: Magnesium; Complete Time: 13:50 [facility] 02/16 13:05 Order name: NT PRO-BNP; Complete Time: 13:50 [facility] 02/16 13:05 Order name: PT-INR; Complete Time: 13:43 [facility] 02/16 13:05 Order name: Troponin HS; Complete Time: 13:50 [facility] 02/16 13:10 Order name: SARS-COV-2 RT PCR; Complete Time: 14:48 [facility] 02/16 13:10 Order name: Influenza Screen (a \T\ B); Complete Time: 14:11 [facility] 02/16 15:01 Order name: Lactate w/ 2H reflex if indic.; Complete Time: 15:51 [facility] 02/16 15:01 Order name: Blood Culture Adult (2) [facility] 02/16 17:10 Order name: Urinalysis w/ reflexes [facility] 02/16 17:10 Order name: Basic Metabolic Panel [facility] 02/16 17:10 Order name: Basic Metabolic Panel [facility] 02/16 17:10 Order name: Basic Metabolic Panel [facility] 02/16 17:10 Order name: Basic Metabolic Panel [facility] 02/16 13:05 Order name: XRAY Chest (1 view); Complete Time: 14:13 [facility] 02/16 14:14 Order name: CT Chest For PE Angio; Complete Time: 15:02 [facility] 02/16 13:05 Order name: EKG; Complete Time: 13:06 [facility] 02/16 17:10 Order name: Regular [facility] 02/16 13:05 Order name: Cardiac monitoring; Complete Time: 13:19 [facility] 02/16 13:05 Order name: EKG - Nurse/Tech; Complete Time: 13:19 [facility] 02/16 13:05 Order name: IV Saline Lock; Complete Time: 13:23 [facility] 02/16 13:05 Order name: Labs collected and sent; Complete Time: 13:23 [facility] 02/16 13:05 Order name: O2 Per Protocol; Complete Time: 13:19 [facility] 02/16 13:05 Order name: O2 Sat Monitoring; Complete Time: 13:19 [facility] Administered Medications: 13:33 Drug: Levalbuterol Inhalation 1.25 mg Route: Inhalation; mb9 14:50 Drug: Magnesium Sulfate IVPB 1 grams Route: IVPB; Infused Over: 1 hrs; Site: right ap3 antecubital; 14:50 Drug: MethylPrednisoLONE IVP 125 mg Route: IVP; Site: right antecubital; ap3 Disposition: 18:46 Co-signature as Attending Physician, John Quijano DO I was immediately available on-site ms3 in the Emergency Department for consultation in the care of the patient. Disposition Summary: 02/16/23 15:55 Hospitalization Ordered Hospitalization Status: Inpatient Admission jm Provider: Poli Espinal Location: Telemetry/MedSur (observation) jmm Condition: Stable jmm Problem: new jmm Symptoms: have improved jmm Bed/Room Type: Standard [facility] Room Assignment: 229(02/16/23 19:57) cg Diagnosis - Hypoxia jmm - COPD/ Chronic obstructive pulmonary disease with (acute) exacerbation jmm Forms: - Medication Reconciliation Form jmm - SBAR form jmm Signatures: Dispatcher [employer] David Patel PA PA jmm Garcia, Cindy RN RN cg Lina Carver RN RN ap3 Marilee Mcadams RN RN ll1 John Quijano DO DO ms3 Chante Arauz RN RN mb9 Corrections: (The following items were deleted from the chart) 19:57 15:55 jmm cg
--- NOTE | 2023-02-16 15:56 | ER ---
Nurse's Notes [facility] Name: Garth Sarkar Age: 82 yrs Sex: Male : 1940 Arrival Date: 02/16/2023 Time: 12:44 Bed 10 Private MD: Diagnosis: Hypoxia;COPD/ Chronic obstructive pulmonary disease with (acute) exacerbation Presentation: 02/16 12:56 Chief complaint: Patient states: Cough/SOB for 2 days. Oxygen 78% at home. Had ll1 cardioversion Monday at [facility] in [place]. Coronavirus screen: Client denies travel out of the [place] in the last 14 days. At this time, the client does not indicate any symptoms associated with coronavirus-19. Ebola Screen: Patient denies travel to an Ebola-affected area in the 21 days before illness onset. Initial Sepsis Screen: Does the patient meet any 2 criteria? No. Patient's initial sepsis screen is negative. Does the patient have a suspected source of infection? Yes: Productive cough/pneumonia. Risk Assessment: Do you want to hurt yourself or someone else? Patient reports no desire to harm self or others. Onset of symptoms was February 15, 2023. 12:56 Method Of Arrival: Wheelchair ll1 12:56 Acuity: SOBALDO 2 ll1 Triage Assessment: 12:59 General: Appears uncomfortable, ill, Behavior is calm, cooperative, appropriate for ll1 age. Pain: Denies pain. Respiratory: Reports shortness of breath cough that is. Historical: - Allergies: 12:58 Codeine; ll1 - PMHx: 12:58 Hypertension; OA; Atrial fibrillation; ll1 - PSHx: 12:58 cardioversion from A fib; ll1 - Immunization history:: Client reports receiving the 2nd dose of the Covid vaccine. - Social history:: Smoking status: Patient denies any tobacco usage or history of. Screenin:00 [facility] ED Fall Risk Assessment (Adult) History of falling in the last 3 months, pf1 including since admission No falls in past 3 months (0 pts) Confusion or Disorientation No (0 pts) Intoxicated or Sedated No (0 pts) Impaired Gait No (0 pts) Mobility Assist Device Used No (0 pt) Altered Elimination No (0 pt) Score/Fall Risk Level 0 - 2 = Low Risk Oriented to surroundings, Maintained a safe environment, Educated pt \T\ family on fall prevention, incl call for assistance when getting out of bed, Assessed \T\ reinforced patient's understanding of fall precautions, Provided non-skid footwear, Hourly rounding (assess needs \T\ fall precautionary measures) done, Used ambulatory aids as needed (educated on \T\ assisted with), Used gait belt as appropriate. Abuse screen: Denies threats or abuse. Nutritional screening: No deficits noted. Tuberculosis screening: No symptoms or risk factors identified. Assessment: 13:23 General: Appears uncomfortable, Behavior is cooperative. Pain: Denies pain. Neuro: mb9 Level of Consciousness is awake, alert, obeys commands, Oriented to person, place, time, situation, Appropriate for age. Cardiovascular: Heart tones S1 S2 present Patient's skin is warm and dry. Rhythm is regular. Cardiovascular: Denies chest pain. Respiratory: Reports shortness of breath at rest Airway is patent Respiratory effort is even, Respiratory pattern is regular, symmetrical, Breath sounds are clear bilaterally. Derm: Skin is pink, warm \T\ dry. Musculoskeletal: Range of motion: intact in all extremities. 14:52 Reassessment: patient's SpO2 dropped to 79% on 4liters nasal canula, this nurse placed ap3 the patient on non-rebreather and notified the provider. respiratory was paged for high flow nasal canula. 19:00 General: Appears in no apparent distress. comfortable, well groomed, well developed, pf1 Behavior is calm, cooperative, appropriate for age, quiet. 19:00 Pain: Denies pain. Neuro: Level of Consciousness is awake, alert, obeys commands, pf1 Oriented to person, place, time, situation. Cardiovascular: No deficits noted. Denies chest pain, Capillary refill < 3 seconds Patient's skin is warm and dry. Respiratory: Reports shortness of breath cough that is non-productive, Airway is patent Trachea midline Respiratory effort is even, unlabored, Respiratory pattern is regular, symmetrical, Breath sounds are clear bilaterally. GI: No deficits noted. No signs and/or symptoms were reported involving the gastrointestinal system. : No deficits noted. No signs and/or symptoms were reported regarding the genitourinary system. EENT: No deficits noted. No signs and/or symptoms were reported regarding the EENT system. 20:00 Reassessment: Patient appears in no apparent distress at this time. No changes from pf1 previously documented assessment. Patient and/or family updated on plan of care and expected duration. Pain level reassessed. Patient is alert, oriented x 3, equal unlabored respirations, skin warm/dry/pink. Patient eating at this time. . 20:29 Reassessment: attempt patient report, nurse to call back. pf1 Vital Signs: 12:56 BP 131 / 68; Pulse 69; Resp 22; Temp 98.2; Pulse Ox 84% on R/A; Weight 78.02 kg; Height ll1 5 ft. 8 in. ; Pain 0/10; 13:00 Pulse Ox 94% on 2 lpm NC; ll1 14:41 BP 141 / 79; Pulse 66; Pulse Ox 93% on 4 lpm NC; ap3 19:00 BP 141 / 79; Pulse 68; Resp 19; Temp 98(O); Pulse Ox 98% on 3 lpm NC; Pain 0/10; pf1 20:00 BP 122 / 73; Pulse 59; Resp 20; Pulse Ox 97% 3 lpm ; Pain 0/10; pf1 12:56 Body Mass Index 26.15 (78.02 kg, 172.72 cm) ll1 12:56 Pain Scale: Adult ll1 19:00 Pain Scale: Adult pf1 20:00 Pain Scale: Adult pf1 ED Course: 12:46 Patient arrived in ED. mr 12:47 David Terry PA is PHCP. m 12:47 John Quijano DO is Attending Physician. [facility] 12:58 Triage completed. ll1 12:59 Arm band placed on. ll1 13:10 Patient placed in an exam room, on a stretcher. ll1 13:15 EKG done. Inserted saline lock: 18 gauge in right antecubital area, using aseptic mb9 technique. 13:23 Troponin HS Sent. mb9 13:23 NT PRO-BNP Sent. mb9 13:23 PT-INR Sent. mb9 13:23 CBC with Diff Sent. mb9 13:23 LFT's Sent. mb9 13:23 Magnesium Sent. mb9 13:23 Basic Metabolic Panel Sent. mb9 13:24 Placed in gown. Bed in low position. Call light in reach. Side rails up X 1. Client mb9 placed on continuous cardiac and pulse oximetry monitoring. NIBP monitoring applied. hospital monitor on. 13:25 No provider procedures requiring assistance completed. mb9 13:31 XRAY Chest (1 view) In Process Unspecified. EDMS 13:33 Influenza Screen (a \T\ B) Sent. mb9 13:33 SARS-COV-2 RT PCR Sent. mb9 13:51 Jessica Lewis, RN is Primary Nurse. ph 14:32 CT Chest For PE Angio In Process Unspecified. EDMS 15:10 First set of blood cultures drawn by me. ap3 15:25 Second set of blood cultures drawn by me. ap3 15:54 Poli Espinal MD is Hospitalizing Provider. jmm 18:57 Primary Nurse role handed off by Jessica Lewis RN ap3 18:57 Lina Carver, AVERY is Primary Nurse. ap3 20:23 Patient admitted, IV remains in place. pf1 Administered Medications: 13:33 Drug: Levalbuterol Inhalation 1.25 mg Route: Inhalation; mb9 14:50 Drug: Magnesium Sulfate IVPB 1 grams Route: IVPB; Infused Over: 1 hrs; Site: right ap3 antecubital; 14:50 Drug: MethylPrednisoLONE IVP 125 mg Route: IVP; Site: right antecubital; ap3 Medication: 13:24 VIS not applicable for this client. mb9 Outcome: 15:55 Decision to Hospitalize by Provider. m 21:16 Admitted to Med/surg accompanied by nurse, via wheelchair, room 229, with oxygen. nj1 21:16 Condition: stable 21:16 Instructed on the need for admit. 21:17 Patient left the ED. nj1 Signatures: Dispatcher [employer] EDMS aDvid Terry PA PA jmm RiveraChante Jessica Lewis, RN AVERY ph Lina Carver RN RN ap3 Marilee Mcadams RN RN ll1 Breneman, Mary Beth RN RN mb9 Nicole blanco RN RN pf1 Samantha Thomas RN RN nj1
--- NOTE | 2023-02-16 16:07 | P.HP ---
Certification for Inpatient Patient admitted to: Observation With expected LOS: <2 Midnights Patient will require the following post-hospital care: None Practitioner: I am a practitioner with admitting privileges, knowledge of patient current condition, hospital course, and medical plan of care. Services: Services provided to patient in accordance with Admission requirements found in Title 42 Section 412.3 of the Code of Federal Regulations Patient History Date of Service: 02/16/23 Primary Care Provider: Nella Reason for admission: COPD exacerbation History of Present Illness: This is an 82-year-old male with past medical history significant for hypertension, sleep apnea, atrial fibrillation, COPD, and asthma. Patient p resents to the emergency room with complaints of weakness and shortness of breath. Per patient and his family members were at the bedside, there was reported that patient's oxygen saturation went down to 79% at home and recovered to 82% at max. Patient reports administering a breathing treatment with no improvement. Patient also reported having a rescue inhaler but did not think about using it. Patient was evaluated at the bedside he is currently on 2 L satting at 92% with no respiratory distress noted. 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 In the ER his labs were significant for BNP 5087. On exam crackles was heard on bilateral bases. Patient will be admitted under the care of Dr. Espinal pulmonology be consulted for further recommendations management. Home medications list reviewed: Yes - Past Medical/Surgical History -: Atrial fib -: COPD -: Asthma -: ARNULFO -: HTN Past Surgical History: Patient denies surgical history -: Cardioversion - Social History Smoking Status: Never smoker Alcohol use: No CD- Drugs: No Caffeine use: Yes Place of Residence: Home Review of Systems 10-point ROS is otherwise unremarkable General: Weakness Respiratory: Cough Physical Examination - Vital Signs Temperature: 98.2 F Blood Pressure: 141/79 Pulse: 61 Respirations: 23 Pulse Ox (%): 92 - Physical Exam General: Alert, In no apparent distress, Oriented x3 HEENT: Atraumatic, Normocephalic, PERRLA Neck: Supple, 2+ carotid pulse no bruit Respiratory: Crackles/rales Cardiovascular: No edema Capillary refill: <2 Seconds Gastrointestinal: Normal bowel sounds Musculoskeletal: No clubbing, No swelling Integumentary: No rashes, No breakdown Neurological: Normal speech, Normal strength at 5/5 x4 extr Lymphatics: No axilla or inguinal lymphadenopathy - Studies Laboratory Data (last 24 hrs) 02/16/23 13:20: PT 14.9 H, INR 1.35 02/16/23 13:20: WBC 11.50 H, Hgb 13.5 L, Hct 40.8, Plt Count 285 02/16/23 13:20: Sodium 136, Potassium 4.1, BUN 25 H, Creatinine 1.26, Glucose 175 H, Magnesium 1.9, Total Bilirubin 0.7, AST 13 L, ALT 20, Alkaline Phosphatase 87 Microbiology Data (last 24 hrs): 02/16/23 13:31 Nasopharnyx Influenza Type A Antigen Screen - Final 02/16/23 13:31 Nasopharnyx Influenza Type B Antigen Screen - Final Assessment and Plan - Plan Assessment Acute on chronic COPD exacerbation Atrial fib Hyperlipidemia Hypertension BPH Plan Continue nebulizer treatment with oxygen support as needed Patient's BNP was elevated at 5087 with crackles but no BLE edema on examination. Patient may benefit from an echo Pulmonology consulted, recommendations appreciated Resume home medication when appropriate Continue cardiac telemetry DVT PPx-Eliquis Full code Discharge Plan: Home Plan to discharge in: 48 Hours - Advance Directives Does patient have a Living Will: No Does patient have a Durable POA for Healthcare: No - Code Status/Comfort Care Code Status Assessed: Yes (Full code) Critical Care: No Time Spent Managing Pts Care (In Minutes): 50
[2023-02-16] MEDS ORDERED: ACETAMINOPHEN 500 MG TAB PO PRN (17:01)
[2023-02-16] MEDS ORDERED: METOPROLOL XL 100 MG TAB PO SCH ×2 (18:00)
[2023-02-16] MEDS: FUROSEMIDE 40 MG/4 ML VIAL IV SCH (19:50)
[2023-02-16] MEDS ORDERED: IPRATROPIUM BROM 0.5MG/2.5ML NEB PRN (19:51)
[2023-02-16] MEDS ORDERED: ALBUTEROL 2.5 MG/3 ML NEB SOL NEB PRN (19:52)
[2023-02-16] MEDS ORDERED: ALBUTEROL 2.5 MG/3 ML NEB SOL NEB SCH (20:00)
[2023-02-16] MEDS ORDERED: IPRATROPIUM BROM 0.5MG/2.5ML NEB SCH (20:00)
[2023-02-16] MEDS: METOPROLOL XL 50 MG TAB PO SCH (20:00)
[2023-02-16] MEDS ORDERED: FUROSEMIDE 40 MG/4 ML VIAL ONE (20:19)
[2023-02-16] MEDS: FLECAINIDE 100 MG TAB PO SCH (21:46)
[2023-02-16] MEDS: ATORVASTATIN 20 MG TAB PO SCH (21:51)
[2023-02-16] MEDS: TAMSULOSIN 0.4 MG SR CAP PO SCH (21:51)
[2023-02-16] MEDS: APIXABAN 5 MG TABLET PO SCH (21:51)
[2023-02-16 22:16] VITALS: BMI 26.3
[2023-02-16 23:44] LABS: Specific Gravity 1.015 (1.005-1.030); Urine Bilirubin NEGATIVE (Negative); Urine Blood Negative (Negative); Urine Clarity Clear (Clear); Urine Color Colorless (Yellow); Urine Glucose TRACE (Negative); Urine Protein NEGATIVE (Negative); Urine Urobilinogen Normal (Normal)
[2023-02-17] MEDS: METOPROLOL XL 50 MG TAB PO SCH ×2 (06:12→17:17)
--- NOTE | 2023-02-17 07:01 | EKG ---
Test Date: 2023-02-16 Test Time: 13:15:24 [employer] Attendant: ANGELICA MEASUREMENT RESULTS: Intervals: Rate: 66 NE: 166 QRSD: 106 QT: 432 QTc: 452 [place]: P: 40 NE: 166 QRS: -7 T: 76 INTERPRETIVE STATEMENTS: Normal sinus rhythm Left ventricular hypertrophy with repolarization abnormality Inferior infarct, age undetermined Abnormal ECG Compared to ECG 12/07/2005 16:26:55 Left ventricular hypertrophy now present Early repolarization now present Myocardial infarct finding still present Electronically Signed On 02-17-23 06:59:55 CDT by Cassius Sebastian
[2023-02-17 07:21] LABS: Potassium 3.8 mEq/L (3.5-5.1)
--- NOTE | 2023-02-17 07:23 | P.PN ---
Date of Service: 02/17/23 Subjective: Breathing feels much better today not in any pain this morning no worsening symptoms ROS: 10 point ROS as noted above, otherwise negative Physical Exam: GEN: Alert, oriented, NAD HEENT: Normal conjunctiva, sclera anicteric CV: Irregularly Irregular rate and rhythm, no edema Pulm: Nonlabored respirations on 3L NC, mild crackles/rales ABD: Soft, nontender, nondistended Neuro: Normal speech, normal affect vitals reviewed Problem List: acute hypoxemic respiratory failure Congestive Heart Failure, with exacerbation, new Acute on chronic COPD exacerbation A-fib Hyperlipidemia Hypertension BPH History of lymphoma new Congestive Heart Failure Acute on chronic COPD exacerbation CXR 02/17 - Diffuse interstitial prominence and patchy mostly peripheral reticular and hazy opacities Chest CTA 02/17 -pulmonary edema; No evidence of acute central pulmonary emboli Continue nebulizer treatments with oxygen support as needed wean oxygen as tolerated Blood culture pending Cardio consulted Started Rocephin 02/17 Continue Lasix Echo pending A-fib Hyperlipidemia Hypertension BPH Continue home medications History of lymphoma stable. currently in remission VTE: Eliquis Code: Full Dispo: Home ~48hrs
[2023-02-17] MEDS ORDERED: POTASSIUM CL SA 10 MEQ TAB PO ONE (09:00)
[2023-02-17] MEDS: FUROSEMIDE 40 MG/4 ML VIAL IV SCH ×2 (09:41→17:18)
[2023-02-17] MEDS: PANTOPRAZOLE 40MG TABLET PO SCH (09:41)
[2023-02-17] MEDS: APIXABAN 5 MG TABLET PO SCH ×2 (09:41→20:42)
[2023-02-17] MEDS: CEFTRIAXONE 1,000 MG in NA CHLORIDE 0.9% 50 ML IVPB SCH (09:42)
[2023-02-17] MEDS: FLECAINIDE 100 MG TAB PO SCH ×2 (09:42→20:41)
[2023-02-17] MEDS: FINASTERIDE 5 MG TAB PO SCH (10:56)
[2023-02-17] MEDS: ATORVASTATIN 20 MG TAB PO SCH (20:42)
[2023-02-17] MEDS: TAMSULOSIN 0.4 MG SR CAP PO SCH (20:42)
--- NOTE | 2023-02-17 22:01 | CON ---
Date of Consultation: 02/17/[address] Espinal on . I saw the patient on 02/17/2023. Reason For Consultation: Edema, COPD exacerbation, recent cardioversion. History Of Present Illness: Mr. Sarkar is 82. Has had a history of hypertension, atrial fibrilla tion, recently had a cardioversion by Dr. Ledesma, and he converted to sinus rhythm. He was placed on flecainide and Eliquis. He was taking metoprolol 100 mg b.i.d. from the past. He was also taking Fl omax and Lipitor. Came in with edema and shortness of breath. Denied any chest pain. His main comp laint is weakness, fatigue, shortness of breath. No palpitation. No syncope. Denied any fever or c hill or cough. Chest x-ray in the hospital showed possible edema. CT showed possible edema, possibl e interstitial lung disease. Patient is asymptomatic as long as he is not exerting himself. He sees a primary care in the [place] area. She referred him to Dr. Ledesma. Because of atrial fibrillation and because of fatigue, his symptoms did not change after the cardioversion. Past Medical History: As stated above. Allergies: NONE. Review of Systems: Negative. Social History: Negative. Family History: Negative. Medications: Includes inhalers, irbesartan, Eliquis, Lipitor, flecainide, Flomax, metoprolol, and he is now also receiving some Lasix. Physical Examination: General: He was pleasant, definitely in no acute distress at rest. O2 saturation was adequate. Sin us rhythm. Afebrile. HEENT: Negative. Neck: Supple with no bruit. Chest: Clear to auscultation and percussion. Cardiac: Revealed a tricuspid regurgitation murmur. No gallops or rubs. Abdomen: Benign. Extremities: Really to me showed no clubbing. No cyanosis. No edema. Diagnostic Data: Showed white count of 11,000, glucose BNP was 5000. EKG is normal rhyth m. CT and chest x-ray were reported earlier. Impression And Plan: I believe his symptoms are probably going to be more chronic obstructive pulmon jaskaran disease related than cardiac related. I will give Dr. Ledesma a call later on today and see if he has done an echocardiogram on him recently. I would consider use of antibiotics because this certain ly could be pulmonary related, maybe bronchitis. Another echocardiogram is pending today. I would c ontinue present regimen. Will definitely continue flecainide and Eliquis for his atrial fibrillation . I will continue metoprolol, continue his inhalers. He is on Lipitor for dyslipidemia. I will see what Dr. Ledesma says and I will see what his echo showed before making further decisions. LISA/MODL Voice ID: [id number] Report ID: [id number]
[2023-02-18] MEDS: METOPROLOL XL 50 MG TAB PO SCH (05:10)
[2023-02-18 07:38] LABS: Absolute Lymphocytes (CBC) 1.5 K/uL (0.7-4.9); Hematocrit 36.2 % (39.6-49.0); Lymphocytes % 12.9 % (15.3-44.8); MCV 92.6 fL (80-100); MPV 7.2 fL (7.6-11.3); RBC Red Blood Cell Count 3.91 M/uL (4.33-5.43)
[2023-02-18 07:49] LABS: Magnesium 2.1 mg/dL (1.6-2.4); Phosphorus 2.7 mg/dL (2.5-4.9)
[2023-02-18 07:51] LABS: Potassium 3.1 mEq/L (3.5-5.1)
--- NOTE | 2023-02-18 08:03 | P.PN ---
Date of Service: 02/18/23 Subjective: Breathing feels much easier today ambulating around the floor no acute events overnight unable to wean off 3L NC ROS: 10 point ROS as noted above, otherwise negative Physical Exam: GEN: Alert, oriented, NAD HEENT: Normal conjunctiva, sclera anicteric CV: sinus lexie, mild edema Pulm: Nonlabored respirations on 3L NC, mild crackles/rales ABD: Soft, nontender, nondistended Neuro: Normal speech, normal affect vitals reviewed Problem List: Acute hypoxemic respiratory failure Congestive Heart Failure, with exacerbation, new; diastolic Acute on chronic COPD exacerbation A-fib Hyperlipidemia Hypertension BPH History of lymphoma Acute hypoxemic respiratory failure Congestive Heart Failure, with exacerbation, new; diastolic Acute on chronic COPD exacerbation CXR 02/16 - Diffuse interstitial prominence and patchy mostly peripheral reticular and hazy opacities Repeat CXR tomorrow morning Chest CTA 02/16 - pulmonary edema; No evidence of acute central pulmonary emboli Continue nebulizer treatments with oxygen support as needed wean oxygen as tolerated Blood culture - no current growth Cardio consulted Started Rocephin 02/17 Continue Lasix Echo pending Metoprolol, flecainide on hold 02/18 due to bradycardia A-fib Hyperlipidemia Hypertension BPH Continue home medications History of lymphoma stable. currently in remission VTE: Eliquis Code: Full Dispo: Home ~2 days home O2
[2023-02-18] MEDS: CEFTRIAXONE 1,000 MG in NA CHLORIDE 0.9% 50 ML IVPB SCH (10:48)
[2023-02-18] MEDS: FINASTERIDE 5 MG TAB PO SCH (10:48)
[2023-02-18] MEDS: FUROSEMIDE 40 MG/4 ML VIAL IV SCH ×2 (10:49→17:06)
[2023-02-18] MEDS: APIXABAN 5 MG TABLET PO SCH ×2 (10:49→20:30)
[2023-02-18] MEDS: PANTOPRAZOLE 40MG TABLET PO SCH (10:49)
[2023-02-18] MEDS ORDERED: POTASSIUM 25 MEQ EFFERV TAB PO ONE (12:48)
--- NOTE | 2023-02-18 19:34 | PN ---
Date of Progress Note: 02/18/2023 Subjective: Seen by bedside. Appears to be doing much better clinically. There is no orthopnea. H e is doing some physical therapy and doing well. Review of Systems: There is no resting shortness of breath, orthopnea, cough, and no lower extremity edema. No nausea, vomiting, diarrhea. Has mild shortness of breath on exertion. All other systems reviewed and they a re negative. Objective: Vital Signs: Temperature is 97.5, pulse is between 40 and 50, breathing at 14, blood pre ssure 138/67, saturating 96% on room air. General: Pleasant elderly male, in no apparent distress. Head and Neck: Pupils are equal, reactive to light. Intact eye movements. No JVD. No cervical lym phadenopathy. Neck: Supple. Thyroid is not enlarged. Lungs: Decreased breathing sounds bilaterally. No accessory muscle use or muscle retraction. Heart: Irregular. No extra sounds. Abdomen: Soft, nontender. Bowel sounds positive. No organomegaly. No masses or hernia. No rigidi ty or rebound. Extremities: No edema, clubbing, cyanosis. Intact pulses. Skin: No rash. Neurologic: Alert, awake, oriented x3. No acute focal deficits appreciated. Investigations: 1.Atrial fibrillation. His heart rate is controlled, is likely in sinus at this moment. I will con tinue with metoprolol and Eliquis. If his heart rate drops below 40, then drop the metoprolol to 25 mg twice a day, and he follows with EP in [place]. 2.Chronic obstructive pulmonary disease exacerbation, improving. 3.Congestive heart failure exacerbation. I believe that he is euvolemic at this moment. I recommen d to switch him to oral Lasix of 40 mg twice a day. From Cardiology standpoint, the patient is stable and will sign off on the case. He will follow up with his marketing and public relations manager upon discharge. SR/MODL Voice ID: [id number] Report ID: [id number]
[2023-02-18] MEDS: ATORVASTATIN 20 MG TAB PO SCH (20:30)
[2023-02-18] MEDS: TAMSULOSIN 0.4 MG SR CAP PO SCH (20:30)
[2023-02-18] MEDS ORDERED: POTASSIUM CL SA 10 MEQ TAB PO ONE (21:00)
[2023-02-19 04:12] LABS: Absolute Lymphocytes (CBC) 1.4 K/uL (0.7-4.9); Hematocrit 36.9 % (39.6-49.0); Lymphocytes % 16.6 % (15.3-44.8); MCV 92.1 fL (80-100); MPV 7.2 fL (7.6-11.3)
[2023-02-19 04:22] LABS: Potassium 3.6 mEq/L (3.5-5.1)
--- NOTE | 2023-02-19 07:19 | P.PN ---
Date of Service: 02/19/23 Subjective: Feeling better today; steadily improving ambulating around easier HR dropped to 35 while sleeping overnight per nurses report, now improving - 50s-60s no new problems ROS: 10 point ROS as noted above, otherwise negative Physical Exam: GEN: Alert, oriented, NAD HEENT: Normal conjunctiva, sclera anicteric CV: sinus lexie, mild edema Pulm: Nonlabored respirations on 2L NC, mild crackles/rales at bases ABD: Soft, nontender, nondistended Neuro: Normal speech, normal affect vitals reviewed Problem List: Acute hypoxemic respiratory failure secondary to CHF exacerbation Congestive Heart Failure, with exacerbation, new; diastolic Acute on chronic COPD exacerbation h/o A-fib, now s/p cardioversion Hyperlipidemia Hypertension BPH History of lymphoma Acute hypoxemic respiratory failure Congestive Heart Failure, with exacerbation, new; diastolic Acute on chronic COPD exacerbation CXR 02/16 - Diffuse interstitial prominence and patchy mostly peripheral reticular and hazy opacities Repeat CXR 02/19 - mild improvement from 02/16 xray Chest CTA 02/16 - pulmonary edema; No evidence of acute central pulmonary emboli Continue nebulizer treatments with oxygen support as needed wean oxygen as tolerated Blood culture - no current growth Cardio consulted monitor on telemetry Started Rocephin 02/17 empirically Continue Lasix Echo: diastolic dysfunction Metoprolol, flecainide on hold 02/18 due to bradycardia will discuss with cardio which/when to restart safely A-fib Hyperlipidemia Hypertension BPH Continue home medications History of lymphoma stable. currently in remission VTE: Eliquis Code: Full Dispo: Home, possibly tomorrow social media community manager consulted for home O2 setup
[2023-02-19] MEDS: PANTOPRAZOLE 40MG TABLET PO SCH (08:15)
--- NOTE | 2023-02-19 08:19 | RAD REPORT ---
EXAM DESCRIPTION: RAD - Chest Single View - 02/19/2023 5:27 am CLINICAL HISTORY: SOB COMPARISON: Chest Single View dated 02/16/2023; Chest For Pe Angio dated 02/16/2023 FINDINGS: Lines: None. Lungs: Similar diffuse interstitial prominence, slightly right eccentric. . Pleural: Possible small pleural effusions. Cardiac: Cardiomegaly. Mediastinum: Within normal limits. Bones: No acute fractures. Other: None IMPRESSION: No significant change in aeration of the lungs compared with 02/16/2023 which could repr esent either edema and/or atypical infection.
[2023-02-19] MEDS: FOLIC ACID 1 MG TABLET PO SCH (08:44)
[2023-02-19] MEDS: MONTELUKAST 10 MG TAB PO SCH (08:44)
[2023-02-19] MEDS: APIXABAN 5 MG TABLET PO SCH ×2 (08:44→20:45)
[2023-02-19] MEDS: FINASTERIDE 5 MG TAB PO SCH (08:44)
[2023-02-19] MEDS: CEFTRIAXONE 1,000 MG in NA CHLORIDE 0.9% 50 ML IVPB SCH (08:45)
[2023-02-19] MEDS: FUROSEMIDE 40 MG/4 ML VIAL IV SCH ×2 (08:45→17:34)
[2023-02-19] MEDS ORDERED: POTASSIUM 25 MEQ EFFERV TAB PO ONE (09:00)
[2023-02-19] MEDS: HOME MED 1 EA UNK (Fluticasone/Vilanterol [Breo Ellipta 200-25 Mcg Inh] Blst.W.Dev) IH SCH (09:00)
[2023-02-19] MEDS: VALSARTAN 160 MG TAB PO SCH (17:36)
[2023-02-19] MEDS: SOTALOL HCL 80 MG TAB PO SCH (19:20)
[2023-02-19] MEDS: TAMSULOSIN 0.4 MG SR CAP PO SCH (20:45)
[2023-02-19] MEDS: ATORVASTATIN 20 MG TAB PO SCH (20:45)
[2023-02-20 04:56] LABS: Potassium 3.4 mEq/L (3.5-5.1)
[2023-02-20] MEDS: SOTALOL HCL 80 MG TAB PO SCH (06:23)
--- NOTE | 2023-02-20 07:10 | ECHO ---
HEIGHT: 5 ft 8 in WEIGHT: 162 lb 3.2 oz DATE OF STUDY: 02/17/[address]: Brandon Hernandez NP 2-DIMENSIONAL: YES M.MODE: YES DOPPLER: YES COLOR FLOW: YES TDS: YES PORTABLE: YES DEFINITY: NO BUBBLE STUDY: NO DIAGNOSIS: PULMONARY EDEMA CARDIAC HISTORY: CATHERIZATION: NO SURGERY: NO PROSTHETIC VALVE: NO PACEMAKER: NO MEASUREMENTS (cm) DIASTOLIC (NORMALS) SYSTOLIC (NORMALS) IVSd 1.0 (0.6-1.2) LA Diam 3.9 (1.9-4.0) LVEF 56% LVIDd 4.8 (3.5-5.7) LVIDs 3.4 (2.0-3.5) %FS 29% LVPWd 1.1 (0.6-1.2) Ao Diam 3.2 (2.0-3.7) 2 DIMENSIONAL ASSESSMENT: RIGHT ATRIUM: NORMAL LEFT ATRIUM: ENLARGED RIGHT VENTRICLE: NORMAL LEFT VENTRICLE: NORMAL TRICUSPID VALVE: MILD TR MITRAL VALVE: MILD MR PULMONIC VALVE: NORMAL AORTIC VALVE: NORMAL PERICARDIAL EFFUSION: NONE AORTIC ROOT: NORMAL LEFT VENTRICULAR WALL MOTION: NORMAL DOPPLER/COLOR FLOW: SEE BELOW. COMMENTS: 1. NORMAL LEFT VENTRICULAR EJECTION FRACTION 55-60%. 2. NORMAL WALL MOTION. 3. LEFT ATRIAL ENLARGEMENT. 4. MILD TRICUSPID REGURGITATION. 5. MILD MITRAL REGURGITATION. 6. 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 7. DIASTOLIC DYSFUNCTION. TECHNOLOGIST: Clarice NAPIER
--- NOTE | 2023-02-20 07:15 | P.PN ---
Date of Service: 02/20/23 Subjective: ROS: 10 point ROS as noted above, otherwise negative Physical Exam: GEN: Alert, oriented, NAD HEENT: Normal conjunctiva, sclera anicteric CV: sinus lexie, mild edema Pulm: Nonlabored respirations on 2L NC, mild crackles/rales at bases ABD: Soft, nontender, nondistended Neuro: Normal speech, normal affect vitals reviewed Problem List: Acute hypoxemic respiratory failure secondary to CHF exacerbation Congestive Heart Failure, with exacerbation, new; diastolic Acute on chronic COPD exacerbation h/o A-fib, now s/p cardioversion Hyperlipidemia Hypertension BPH History of lymphoma Acute hypoxemic respiratory failure Congestive Heart Failure, with exacerbation, new; diastolic Acute on chronic COPD exacerbation CXR 02/16 - Diffuse interstitial prominence and patchy mostly peripheral reticular and hazy opacities CXR 02/19 - mild improvement from 02/16 xray CXR 02/20 pending Chest CTA 02/16 - pulmonary edema; No evidence of acute central pulmonary emboli Continue nebulizer treatments with oxygen support as needed wean oxygen as tolerated Blood culture - no current growth Cardio consulted monitor on telemetry Started Rocephin 02/17 empirically Continue Lasix - switched to PO 02/20 Echo: diastolic dysfunction Metoprolol, flecainide on hold 02/18 due to bradycardia will discuss with cardio which/when to restart safely A-fib Hyperlipidemia Hypertension BPH Continue home medications History of lymphoma stable. currently in remission VTE: Eliquis Code: Full Dispo: Home, possibly tomorrow social media coordinator consulted for home O2 setup
[2023-02-20] MEDS ORDERED: POTASSIUM 25 MEQ EFFERV TAB PO ONE (07:30)
[2023-02-20] MEDS: VALSARTAN 160 MG TAB PO SCH (08:52)
[2023-02-20] MEDS: PANTOPRAZOLE 40MG TABLET PO SCH (08:52)
[2023-02-20] MEDS: MONTELUKAST 10 MG TAB PO SCH (08:52)
[2023-02-20] MEDS: FINASTERIDE 5 MG TAB PO SCH (08:52)
[2023-02-20] MEDS: HOME MED 1 EA UNK (Fluticasone/Vilanterol [Breo Ellipta 200-25 Mcg Inh] Blst.W.Dev) IH SCH (08:53)
[2023-02-20] MEDS: FOLIC ACID 1 MG TABLET PO SCH (08:53)
[2023-02-20] MEDS: APIXABAN 5 MG TABLET PO SCH (08:53)
[2023-02-20] MEDS: CEFTRIAXONE 1,000 MG in NA CHLORIDE 0.9% 50 ML IVPB SCH (08:54)
[2023-02-20] MEDS ORDERED: FUROSEMIDE 40 MG TABLET PO SCH (09:00)
--- NOTE | 2023-02-20 09:57 | RAD REPORT ---
EXAM DESCRIPTION: RAD - Chest Single View - 02/20/2023 9:49 am CLINICAL HISTORY: chf, f/u effusions/edema COMPARISON: Chest Single View dated 02/19/2023; Chest Single View dated 02/16/2023; Chest For Pe Angio dated 02/16/2023 FINDINGS: Lines: None. Lungs: Coarsened interstitium with some minimally improved aeration of the right lung base. Pleural: No significant pleural effusions identified. Cardiac: Cardiomegaly. Mediastinum: Within normal limits. Bones: No acute fractures. Other: None IMPRESSION: Aeration of the lungs similar to marginally improved compared with 02/19/2023. This woul d be consistent with edema given the clinical history.
--- NOTE | 2023-02-20 10:11 | P.DS ---
Admission Date: 02/17/23 Discharge Date: 02/20/23 Primary Care Provider: Nella Disposition: ROUTINE DISCHARGE Discharge Condition: GOOD Reason for Admission: COPD exacerbation Consultations: Cardiology - Dr. Sebastian/Dr. Childers Brief History of Present Illness: 82yo M, PMH: hypertension, sleep apnea, atrial fibrillation, COPD, and asthma. Patient presents to the emergency room with complaints of weakness and shortness of breath. Per patient and his family members were at the bedside, there was reported that patient's oxygen saturation went down to 79% at home and recovered to 82% at max. Patient reports administering a breathing treatment with no improvement. Patient also reported having a rescue inhaler but did not think about using it. Patient was evaluated at the bedside he is currently on 2 L satting at 92% with no respiratory distress noted. Patient also report having a cardioversion done on Monday and was started on flecainide by by his equine internship. In the ER his labs were significant for BNP 5087. On exam crackles was heard on bilateral bases. Patient will be admitted under the care of Dr. Espinal pulmonology be consulted for further recommendations management. Hospital Course: Problem List: Acute hypoxemic respiratory failure secondary to CHF exacerbation Congestive Heart Failure, with exacerbation, new; diastolic Acute on chronic COPD exacerbation h/o A-fib, now s/p cardioversion Hyperlipidemia Hypertension BPH History of lymphoma Patient presented with weakness and shortness of breath. Found to be in acute CHF exacerbation with bilateral pleural effusions and pulmonary edema on CT. Cardiology was consulted. Patient had improvement of his symptoms with IV lasix. He had a mild leukocytosis which is felt to be reactive, however, he did receive IV rocephin for empiric coverage. There was not definitive evidence of infection and he remained afebrile. During his hospitalization, he became bradycardic into the low 40s, with occasional episodes down to the 30s. His metoprolol and flecainide were held secondary to this bradycardia. His heart rate remained in 40s with occasional drop to 30s. Before he had consistent improvement to allow re-initiation of these medications, he converted to atrial fibrillation - rate controlled at 80- 90s bpm. Dr. Childers was consulted and recommended starting sotalol. Patient had continued improvement, weaned down to 2L NC, ambulating around the nursing station. Patient and family felt he was doing well and wanting to be discharged home. Reviewed with Dr. Sebastian, and felt this is reasonable to discharge on oxygen and new prescription for lasix. Patient will have close follow up with his Chief Administrative Officer. Medication changes: stop felcainide metoprolol decreased to 25mg twice daily start lasix 40mg daily start sotalol 80mg twice daily Follow up: PCP 3-5 days Cardiology ~1 week Monitor weight daily. Discussed monitoring weight and CHF symptoms to assist in determining the need for extra diuretics. Physical Exam: GEN: Alert, oriented, NAD HEENT: Normal conjunctiva, sclera anicteric CV: sinus lexie, mild edema Pulm: Nonlabored respirations on 2L NC, mild crackles/rales at bases ABD: Soft, nontender, nondistended Neuro: Normal speech, normal affect Vital Signs/Physical Exam: Temp Pulse Resp BP Pulse Ox 97.4 F 63 16 118/73 97 02/20/23 08:00 02/20/23 08:53 02/20/23 08:00 02/20/23 08:53 02/20/23 08:00 Laboratory Data at Discharge: WBC 8.50 thou/uL (4.3-10.9) 02/19/23 03:01 Hgb 12.8 g/dL (13.6-17.9) L 02/19/23 03:01 Hct 36.9 % (39.6-49.0) L 02/19/23 03:01 Plt Count 264 thou/uL (152-406) 02/19/23 03:01 PT 14.9 SECONDS (9.5-12.5) H 02/16/23 13:20 INR 1.35 02/16/23 13:20 Sodium 136 mEq/L (136-145) 02/20/23 04:30 Potassium 3.4 mEq/L (3.5-5.1) L 02/20/23 04:30 BUN 28 mg/dL (7-18) H 02/20/23 04:30 Creatinine 1.04 mg/dL (0.70-1.30) 02/20/23 04:30 Glucose 140 mg/dL (74-106) H 02/20/23 04:30 Phosphorus 2.7 mg/dL (2.5-4.9) 02/18/23 06:54 Magnesium 2.1 mg/dL (1.6-2.4) 02/18/23 06:54 Total Bilirubin 0.7 mg/dL (0.2-1.0) 02/16/23 13:20 AST 13 U/L (15-37) L 02/16/23 13:20 ALT 20 U/L (16-61) 02/16/23 13:20 Alkaline Phosphatase 87 U/L (45-117) 02/16/23 13:20 Home Medications: Albuterol Inhaler [Ventolin Inhaler*] 1 puff PRN 02/17/23 Apixaban [Eliquis] 1 tab PO BID 02/17/23 Atorvastatin Calcium [Lipitor*] 1 tab PO DAILY 02/17/23 Azelastine HCl [Astepro] 1 puff BID 02/17/23 Famotidine 1 tab PO DAILY 02/17/23 Finasteride [Proscar*] 1 tab PO DAILY 02/17/23 Fluticasone/Vilanterol [Breo Ellipta 200-25 Mcg INH] 1 puff DAILY 02/17/23 Folic Acid 1 tab PO DAILY 02/17/23 Ipratropium/Albuterol Sulfate [Iprat-Albut 0.5-3(2.5) mg/3 ml] 1 puff IH QID 02/17/23 Irbesartan 1 tab PO DAILY 02/17/23 Levocetirizine Dihydrochloride [24Hr Allergy Relief] 1 tab PO DAILY 02/17/23 Montelukast Sodium [Singulair] 1 tab PO DAILY 02/17/23 Pantoprazole [Protonix Tab*] 1 tab PO DAILY 02/17/23 Potassium Chloride 20 meq PO BID 02/17/23 Tamsulosin HCl 1 tab PO BID 02/17/23 Furosemide [Lasix*] 40 mg PO DAILY 30 Days #30 tab 02/20/23 Metoprolol Succinate [Toprol Xl] 25 mg PO BID 30 Days #60 tab 02/20/23 Sotalol HCl [Betapace*] 80 mg PO BID 30 Days #60 tab 02/20/23 New Medications: Sotalol HCl [Betapace*] 80 mg PO BID 30 Days #60 tab Furosemide [Lasix*] 40 mg PO DAILY 30 Days #30 tab Metoprolol Succinate [Toprol Xl] 25 mg PO BID 30 Days #60 tab Physician Discharge Instructions: Patient presented with weakness and shortness of breath. Found to be in acute CHF exacerbation with bilateral pleural effusions and pulmonary edema on CT. Cardiology was consulted. Patient had improvement of his symptoms with IV lasix. He had a mild leukocytosis which is felt to be reactive, however, he did receive IV rocephin for empiric coverage. There was not definitive evidence of infection and he remained afebrile. During his hospitalization, he became bradycardic into the low 40s, with occasional episodes down to the 30s. His metoprolol and flecainide were held secondary to this bradycardia. His heart rate remained in 40s with occasional drop to 30s. Before he had consistent improvement to allow re-initiation of these medications, he converted to atrial fibrillation - rate controlled at 80- 90s bpm. Dr. Childers was consulted and recommended starting sotalol. Patient had continued improvement, weaned down to 2L NC, ambulating around the nursing station. Patient and family felt he was doing well and wanting to be discharged home. Reviewed with Dr. Sebastian, and felt this is reasonable to discharge on oxygen and new prescription for lasix. Patient will have close follow up with his Chief Administrative Officer. Medication changes: stop felcainide metoprolol decreased to 25mg twice daily start lasix 40mg daily start sotalol 80mg twice daily Follow up: PCP 3-5 days Cardiology ~1 week Monitor weight daily. Discussed monitoring weight and CHF symptoms to assist in determining the need for extra diuretics. Followup: OOT,OOT [Primary Care Provider] - Time spent managing pt's care (in minutes): 45
[2023-02-20 12:12] VITALS: BP 129/87; TEMP 98
[2023-02-20 13:35] VITALS: O2SAT 96
--- NOTE | 2023-02-20 21:22 | PN ---
Date of Progress Note: 02/20/2023 The patient was admitted on 02/17/2023. I am seeing him today on 02/20/2023 in followup. The patien t has come in with COPD exacerbation, congestive heart failure exacerbation. Over the weekend, he be came very bradycardic into the 30s, as flecainide was stopped and so was metoprolol, so he went back into atrial fibrillation. Today, he is on sotalol 80 b.i.d. His atrial fibrillation rate is about 8 0. His symptoms have improved dramatically. He still complains of some shortness of breath and some fatigue, but he is expressing wishes to go home. He is now on Eliquis, sotalol 80 b.i.d., Lasix 40 daily, metoprolol 25 b.i.d., and valsartan. He had, had a cardioversion by Dr. Ledesma and was placed on flecainide approximately 2 weeks ago. He will go home with a new regimen. It was discussed with him and his . They will make an appointment with Dr. Ledesma in the near future. As far as atrial fibrillation is concerned, if the sotalol fails, Dr. Ledesma may decide depending on his symptoms to h ave an ablation and maybe a pacemaker done. was normal. He had significant pulmonary hype rtension and some moderate diastolic dysfunction. Family is aware of that. We will follow up his ca se. LISA/VÍCTOR Voice ID: [id number] Report ID: [id number]
== END 2023-02-20 15:43 | disposition home or self-care (01) | DRG 291 ==
LOC: ER 12:44 → ERHOLD 17:01 → 2ND 20:01 → OBSVTOIN 02-17 13:54
PROVIDERS: ADMIT Hospitalist; ATTEND Hospitalist
DX: I11.0 Hypertensive heart disease with heart failure (principal); I50.33 Acute on chronic diastolic (congestive) heart failure; J96.01 Acute respiratory failure with hypoxia; J44.1 Chronic obstructive pulmonary disease with (acute) exacerbation; I48.91 Unspecified atrial fibrillation; I07.1 Rheumatic tricuspid insufficiency; M19.90 Unspecified osteoarthritis, unspecified site; E78.5 Hyperlipidemia, unspecified; N40.0 Benign prostatic hyperplasia without lower urinary tract symptoms; Z88.5 Allergy status to narcotic agent; Z85.72 Personal history of non-Hodgkin lymphomas; Z79.01 Long term (current) use of anticoagulants; Z79.899 Other long term (current) drug therapy; Z20.822 Contact with and (suspected) exposure to COVID-19
CPT/HCPCS: 36415; 71045; 71275; 80048; 80076; 81003; 83605; 83735; 83880; 84100; 84132; 84145; 84484; 85025; 85610; 87040; 87804; 93005; 93306; 96374; 96375; 99285; G0378; J0696; J1940; J2930; J3475; J7614; Q9967; U0003

== ENCOUNTER 2025-03-03 17:18 | Emergency (ER) | payer OTHER ==
--- OUTSIDE RECORDS SUMMARY | 2025-03-03 17:22 | XMS REPORT | Clinical Summary ---
Author Name Unknown Organization [facility] Address [address] [place] [address] Care Team Providers Care Community Services Manager Name Role Phone Chema Power MD Primary Care Provider [phone] John Araujo MD Unavailable Unavailabl Jud Vera MD Unavailable Ish Still MD Unavailable [phone] Mehul Marx MD Unavailable Ish Still MD Unavailable [phone] Kameron Jung MD Unavailable Geo MODI MD, William J Unavailable [phone] Judy Harrell PA-C Unavailable [phone] Marquis Rodriguez MD Unavailable Nanda Roblero MD Unavailable [phone] Allergies No known active allergies Medications azelastine (ASTELIN) 137 mcg/spray nasal spray Inhale 1 spray (137 mcg) into each nostril twice daily. Active folic acid (FOLVITE) 1 mg tablet Take 1 tablet (1 mg) by mouth daily. Active irbesartan (AVAPRO) 300 mg tablet Take 1 tablet (300 mg) by mouth daily. Active potassium chloride (K-DUR,KLOR-CON M) 20 mEq tablet Take 1 tablet (20 mEq) by mouth twice daily. Active pantoprazole (PROTONIX) 40 mg EC tablet Take 1 tablet (40 mg) by mouth daily with breakfast. Active fluticasone (FLONASE) 50 mcg/spray nasal sprayIndications :High grade B-cell lymphoma Inhale 1 spray (50 mcg) into each nostril twice daily. 12/29/19 19 Active levocetirizine (XYZAL) 5 MG tablet Take 1 tablet (5 mg) by mouth every evening. Active BREO ELLIPTA 200-25 mcg/dose TAKE 1 PUFF BY MOUTH EVERY DAY 03/12/20 20 Active cyanocobalamin (VITAMIN B-12) 1000 mcg tablet Take 1 tablet (1,000 mcg) by mouth daily. Active Eliquis 5 mg tabletIndication s:Paroxysmal atrial fibrillation TAKE 1 TABLET BY MOUTH EVERY 12 (TWELVE) HOURS. HOLD FOR PLATELETS LESS THAN 50 K/MM3 OR BLEEDING. 180 tablet 12/17/19 22 Active atorvastatin (LIPITOR) 20 mg tabletIndication s:Dyslipidemia TAKE 1 TABLET BY MOUTH EVERY DAY 90 tablet 1 02/11/20 22 Active famotidine (PEPCID) 40 mg tablet TAKE 1 TABLET BY MOUTH EVERYDAY AT BEDTIME 06/21/20 22 Active montelukast (SINGULAIR) 10 mg tablet TAKE 1 TABLET BY MOUTH EVERYDAY AT BEDTIME 06/04/20 22 Active ZINC ORAL Take 50 mg by mouth at bedtime. Active L.acidophil/L.pl rai/Bifido 7 (UP4 PROBIOTICS ADULT ORAL) Take by mouth. Act sara amLODIPine (NORVASC) 10 mg tablet Take 1 tablet (10 mg) by mouth at bedtime. 04/26/20 23 Active finasteride (PROSCAR) 5 mg tablet Take 1 tablet every day by oral route. 02/10/20 23 Active furosemide (LASIX) 40 mg tablet TAKE 1 TABLET BY MOUTH EVERY DAY 02/21/20 23 Active ipratropium (ATROVENT) 0.02% nebulizer solution Inhale 2.5 mL (0.5 mg) by mouth. Active sotalol (BETAPACE) 80 mg tablet Take 1 tablet (80 mg) by mouth daily. 02/21/20 23 Active tamsulosin (FLOMAX) 0.4 mg 24 hr capsule Take 1 capsule (0.4 mg) by mouth daily. Active doxazosin (CARDURA) 2 mg tablet Take 1 tablet (2 mg) by mouth at bedtime. Active brimonidine-catherine lol (COMBIGAN) 0.2%-0.5% ophthalmic solution Administer 1 drop to both eyes every 12 (twelve) hours. Active dorzolamide (TRUSOPT) 2% ophthalmic solution Administer 1 drop to both eyes 3 (three) times a day. Active budesonide-formo terol (SYMBICORT) 80-4.5 mcg/actuation inhaler Inhale 2 puffs by mouth twice daily. Active ipratropium-albu terol (Combivent Respimat) 20 mcg-100 mcg/puff inhaler Inhale 1 puff by mouth every 6 (six) hours as needed for wheezing or shortness of breath. Active ascorbic acid (ascorbic acid with abhijeet hips) 500 mg tablet Take 1 tablet (500 mg) by mouth daily. 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 20 tablet 1 10/31/19 25 Active albuterol (VENTOLIN HFA,PROAIR HFA) 90 mcg/puff inhaler Inhale by mouth. 024 Discontinu ed(Alterna te therapy) budesonide (PULMICORT) 0.5 mg/2 mL nebulizer solution Inhale 2 mL (0.5 mg) by mouth daily. 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 His most recent echocardiogram was completed on 06/02/2020 and showed patient to have normal LV size and systolic function with a LVEF of 58% and no significant valvular disease. He currently denies any signs or symptoms of decompensated heart failure. We will therefore continue risk factor modifications and close monitoring. Assessment & Plan (06/02/2020 11:30 AM CDT): With a history of treatment with anthracycline-based chemotherapy (R-EPOCH) for high-grade B-cell lymphoma. Patient noticed he has increased shortness of breath with activity in the last few months. We will repeat an echocardiogram today to assess LVEF. Echocardiogram on 01/23/2019 showed an LVEF of 56%. Slow transit constipation 04/12/2019 Bradycardia 04/01/2019 Assessment & Plan (04/01/2019 10:03 AM CDT): Bradycardia has resolved and his home BP and heart rate log shows heart rates in the 80s to 110s. Neuropathy 03/20/2019 Sinus bradycardia 02/05/2019 Paroxysmal atrial fibrillation 01/23/2019 Assessment & Plan (12/23/2020 9:50 AM INSIDE SALES DIRECTOR): History of atrial fibrillation. EKG completed today and showed sinus bradycardia with a heart rate of 52 bpm. He denies any fast heart rates or palpitations. He will therefore continue on his current medication regimen with Carvedilol 6.25 mg PO BID. Given his elevated CHADS-VASc score of 5 due to his age, hypertension, and with history of DVT he will also continue on Eliquis 5 mg PO BID for stroke prophylaxis. He denies any abnormal bleeding. Assessment & Plan (06/02/2020 11:32 AM CDT): Patient denies any recurrence of palpitations. Electrocardiogram today (06/02/2020) showed sinus bradycardia with a rate of 59 beats per minute, NC interval 148 milliseconds and QTC 437 milliseconds. Continue with Eliquis 5 milligrams by mouth twice a day. Assessment & Plan (12/03/2019 12:04 PM INSIDE SALES DIRECTOR): Denies any recurrence of palpitations. Echocardiogram in 12/03/2019 showed sinus rhythm with a rate of 68 beats per minute. Continue with liquids 5 milligrams by mouth twice a day, chads 2 VASC score equals 5. He also has a history of DVT and the right axillary vein and thrombus was also seen in the right basilic vein per ultrasound venous Doppler of the upper extremities. Assessment & Plan (09/02/2019 4:40 PM INSIDE SALES DIRECTOR): He has a history of paroxysmal atrial fibrillation that is controlled with his use of carvedilol 6.25 milligrams by mouth twice daily. He remains asymptomatic with heart rates in the 60s and 70s per his BP log. By exam patient is in sinus rhythm and his last EKG performed 03/22/2019 also shows normal sinus rhythm with a ventricular rate of 58. Recommend continue carvedilol 6.25 milligrams 1 tab by mouth twice daily. Refills will be called into his pharmacy of choice. Patient has an elevated CHADS-VASc score of 5 due to his age, hypertension, and with history of DVT of the right axillary vein and thrombus in the right basilic vein in 01/08/2019. Therefore recommend continuing anticoagulation therapy with apixaban (Eliquis) 5 mg one tab by mouth every 12 hours. Refill will be called into his pharmacy of choice. Assessment & Plan (07/16/2019 3:59 PM CDT): He has a history of paroxysmal atrial fibrillation and is currently on carvedilol 6.25 millirads one tab by mouth twice daily for heart rate and blood pressure control. He remains asymptomatic with heart rates in the 60s to 70s on average at home per his BP log. He will continue to monitor both blood pressure and heart rates and keep a diary for review on his follow-up visit. Recommended continuing his current regimen at this time. Assessment & Plan (06/08/2019 3:04 PM CDT): Mr. Sarkar has a history of paroxysmal atrial fibrillation and was previously on amiodarone and beta annamaria therapy. These were discontinued due to developing bradycardia. He was however able to maintain low-dose annamaria therapy with metoprolol and heart rates remained in the low 60s. For further blood pressure control at changed him to carvedilol at this time. He will notify us if there are any symptoms of palpitations or irregular heart rhythm. He will continue to monitor both blood pressure and heart rates and keep a diary for review on his follow-up visit. Assessment & Plan (04/01/2019 10:01 AM CDT): Patient has history of paroxysmal atrial fibrillation was previously on amiodarone and beta annamaria however this was discontinued secondary to development of bradycardia. Home blood pressure and heart rate log shows systolic blood pressures in the 140s to 150s and heart rates in the 80s to 110s. Therefore I will add metoprolol tartrate to 12.5 milligrams one tab by mouth twice daily with hold parameters to prevent hypotension and bradycardia (hold for systolic blood pressure less than 100 and/or heart rate less than 60). I have advised patient to monitor his blood pressures and heart rate twice daily and to keep a diary of these recordings. He has been asked to bring this log with him to his follow-up visit for review. Please consult our service during the patient's hospital admission for any atrial fibrillation and hypertension management needs. Recommend telemetry monitoring during his hospital admission Dyslipidemia 01/22/2019 Assessment & Plan (12/23/2020 9:54 AM INSIDE SALES DIRECTOR): Lipid panel obtained on 12/03/2019 showed patient to have a total cholesterol of 145, Trig of 128, HDL of 40, and LDL of 79. He will therefore continue his current therapy with Atorvastatin 20 mg PO nightly. We will re-check his lipid panel on 01/18/21 when he is back and [facility] for other visits. Labs reviewed and liver enzymes WNL. Assessment & Plan (06/02/2020 11:31 AM CDT): Latest lipid panel on 12/03/2019 showed total serum cholesterol 145, triglycerides 128, HDL 40, and LDL 79. Continue with Lipitor 20 milligrams by mouth daily at bedtime. Denies any muscle aches or weakness. Assessment & Plan (12/03/2019 12:01 PM INSIDE SALES DIRECTOR): Lipid panel on 12/03/2019 showed total serum cholesterol 145, serum triglycerides 128, HDL 40, and LDL 79. Continue with atorvastatin 20 milligrams by mouth daily at bedtime. Assessment & Plan (09/02/2019 4:35 PM INSIDE SALES DIRECTOR): Recommended continue Lipitor 20 milligrams by mouth daily. Refill be called into his pharmacy of choice. Fasting lipid panel will be performed as follow-up visit. Assessment & Plan (07/16/2019 4:00 PM CDT): Recommend to continue Lipitor 20 mg by mouth daily. Fasting lipid panel will be repeated at his follow-up visit. Assessment & Plan (06/08/2019 3:04 PM CDT): Patient will continue on atorvastatin 20 milligrams daily. Healthy lifestyle modifications were reinforced. Follow-up lipid panel will be done prior to his next visit. Hypertension 01/22/2019 Overview (01/22/2019): BP Readings from Last 3 Encounters: 01/22/19 102/71 01/19/19 136/68 01/14/19 110/64 Assessment & Plan (12/23/2020 9:56 AM INSIDE SALES DIRECTOR): Blood pressure is well controlled with a reading of 135/74. He reports that he checks at home and his SBP runs in the 120-140's. He should therefore continue his current medication regimen at this time with Carvedilol 6.25 mg PO BID, Nifedipine 5 mg PO BID, and Hydrochlorothiazide 25 mg PO daily. His most recent lab work was reviewed and showed good kidney function. Assessment & Plan (06/02/2020 11:34 AM CDT): Blood pressure in the clinic today is 109/64 mmHg. Patient states that he has not been measuring his blood pressure at home. Gave him a blood pressure log to monitor his blood pressure measurements to evaluate the dosage of his blood pressure medications. Assessment & Plan (12/03/2019 12:02 PM INSIDE SALES DIRECTOR): Blood pressure is controlled with the current medical regimen. Advised patient to continue monitoring blood pressure and should the systolic blood pressure be persistently greater than 140 millimeters of mercury to let us know the clinic so we can make changes in his medications. Assessment & Plan (09/02/2019 4:46 PM INSIDE SALES DIRECTOR): He's been monitoring his blood pressures and heart rates at home showing blood pressures on average the 140 and 80s Diastolic, with heart rates in the 60s. Therefore I recommend changing his Norvasc 10 milligrams by mouth daily to Procardia XL 60 milligrams by mouth daily. Is recommended to continue irbesartan 300 milligrams by mouth daily, HCTZ 25 milligrams by mouth daily, and carvedilol 6.25 milligrams 1 tab by mouth twice daily. Medications will be called into his pharmacy of choice I advised the patient to monitor his blood pressures and heart rate daily and keep a diary of the recordings. The patient was instructed to provide a copy of this diary to the cardiology clinic for review in 1-2 weeks. Further recommendations will be provided following review of his BP and HR log. Assessment & Plan (07/16/2019 3:57 PM CDT): Blood pressures have been elevated in the 140s to 150s systolic and 80s to 90s diastolic. He is currently taking amlodipine 10 milligrams by mouth daily, carvedilol 6.25 milligrams 1 tab by mouth twice daily, HCTZ 25 milligrams by mouth daily, and irbesartan 300 milligrams by mouth daily. I discussed in detail the recommendations to take his home medications around the same time every morning and evening (12 hours apart) to improve efficacy. Additionally he has been advised to monitor his blood pressures 3 times a day and to record these numbers and to contact me with these results in the next one to 2 weeks for review. If there is no improvement in his blood pressure readings, we will consider changing his amlodipine 10 milligrams to Procardia XL 60 milligrams by mouth daily. Assessment & Plan (06/08/2019 3:05 PM CDT): Blood pressure in the office today is 135/74. Patient blood pressure logs show SBP's despite recent addition of hydrochlorothiazide remain in the 150s to 160s. I therefore asked the patient to discontinue metoprolol tartrate and start carvedilol 6.25 milligrams twice a day for improved blood pressure control. He will also continue hydrochlorothiazide 25 milligrams daily, amlodipine 10 milligrams nightly, irbesartan 300 milligrams daily.. Patient will maintain a blood pressure log and contact us if blood pressures remain >150/90. Assessment & Plan (04/01/2019 9:59 AM CDT): Since he has a history of hypertension and is currently on amlodipine 10 milligrams one tab by mouth daily and Avapro 30 milligrams by mouth daily. I will add metoprolol titrate to 12.5 milligrams one tab by mouth twice daily with hold parameters to prevent hypotension and bradycardia (hold for systolic blood pressure less than 100 and/or heart rate less than 60). I have advised patient to monitor his blood pressures and heart rate twice daily and to keep a diary of these recordings. He has been asked to bring this log with him to his follow-up visit for review. Gastroesophageal reflux disease 01/22/2019 Other specified preoperative examination 019 Overview (01/22/2019): 12/18/2018: EK, SB. 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 Recommend continuation of observation. Malignant neoplasm related fatigue 12/25/2018 Neoplasm related pain (acute) (chronic) 12/26/19 High grade B-cell lymphoma 12/18/2018 Assessment & Plan (01/08/2019 4:14 PM CDT): Patient presents for lab review and clinic assessment while on REPOCH s/p C1D16. Hemodynamically he is stable and does not require any interventions. Clinically he is stable and recommend continuation of current regimen and follow up visits as scheduled Follow up: 01/11/19 in Assessment & Plan (12/24/2018 11:50 AM INSIDE SALES DIRECTOR): Patient presents for treatment planning and was seen by Dr. Power in clinic who reviewed his case in detail. Dr. Power spoke directly to pathologist Dr. Lyons regarding pathology evaluation. Most of his tumor cells were necrotic due to high mitotic rate. He will initiate on R-EPOCH but due to his age start with Dose level -1. In addition, he will need IT MTX but he will likely need IV high methotrexate as well, upon today's discussion will around C2D15. He has been consented for therapeutic agents as well as procedure. Patient's treatment plan was signed. Admission orders were created and signed. He is scheduled for admission today. Follow up: 3 weeks for lab check Personal history of chemotherapy Chronic obstructive pulmonary disease Encounters Date Type Department Care Team Description 02/03/2025 Orders Only On License Of [facility] - [facility]atology and [facility] [address] [facility], [address] [place] [address] Etelvina Yousif MD Basal cell carcinoma of skin of left upper limb, including shoulder (Primary Dx) 01/31/2025 Telephone [facility] [address] [place] [address] Main [facility], 9th [place] [address] Kira Martínez MD 01/29/2025 12:15 PM CDT Follow-Up [facility] [address] [place] [address] Main [facility], 9th [place] [address] Kameron Jung MD Actinic keratosis (Primary Dx); Personal history of other malignant neoplasm of skin; Neoplasm of uncertain behavior of skin 01/29/2025 Travel 01/14/2025 12:30 PM CDT Procedure visit On License Of [facility] - Dermatology and [facility] [address] [place] [address], [address] [place] [address] Ish Still MD 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 01/14/2025 Travel 12/07/2024 Orders Only [facility] [address] [place] [address], 6th [place] [address] Irma Berry APRN High grade B-cell lymphoma (Primary Dx) 12/05/2024 12:15 PM INSIDE SALES DIRECTOR [facility] and [facility] [address] [place] [address], [address] [place] [address] Ish Still MD 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 12/05/2024 Travel 11/28/2024 1:15 PM INSIDE SALES DIRECTOR Follow[facility]Up [facility] [address] [place] [address], 6th [place] [address] Chema Power MD High grade B-cell lymphoma 11/28/2024 Travel 11/27/2024 9:31 AM INSIDE SALES DIRECTOR - 11/27/2024 11:59 PM INSIDE SALES DIRECTOR Hospital Encounter [facility] [address] [place] [address] Main [facility], 3rd [place] [address] Irma Berry APRN High grade B-cell lymphoma Discharge Disposition: Home 11/27/2024 9:09 AM INSIDE SALES DIRECTOR - 11/27/2024 9:30 AM INSIDE SALES DIRECTOR Hospital Encounter [facility] [address] [place] [address] Irma BerryMARQUISE High grade B-cell lymphoma Discharge Disposition: Home 11/18/2024 1:30 PM INSIDE SALES DIRECTOR Follow-Up [facility] - Dermatology and [facility] [address] [facility], [address] [place] [address] Ish Still MD 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 (Primary Dx) 11/18/2024 Travel 11/07/2024 1:30 PM INSIDE SALES DIRECTOR Follow-Up [facility] - [facility] and [facility] [address] [facility], [address] [place] [address] Ish Still MD 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 11/07/2024 Orders Only [facility] and [facility] [address] [facility], [address] [place] [address] Ish Still MD 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 (Primary Dx) 11/07/2024 Travel 11/04/2024 Orders Only [facility] and [facility] [address] [facility], [address] [place] [address] Ish Still MD 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 (Primary Dx) 10/31/2024 9:30 AM INSIDE SALES DIRECTOR Procedure visit [facility] and [facility] [address] [facility], [address] [place] [address] Ish Still MD 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 (Primary Dx) 10/31/2024 Orders Only [facility] and [facility] [address] [facility], [address] [place] [address] Enrike Alvarado RN 10/31/2024 Travel 10/01/2024 10:00 AM INSIDE SALES DIRECTOR Follow-Up [facility] and [facility] [address] [facility], [address] [place] [address] Ish Still MD Actinic keratosis [L57.0] (Primary Dx); Squamous cell carcinoma of skin of left upper limb, including shoulder 10/01/2024 Orders Only [facility] and [facility] [address] [facility], [address] [place] [address] Etelvina Yousif MD 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 (Primary Dx) 10/01/2024 Travel 09/03/2024 2:00 PM INSIDE SALES DIRECTOR Clinical Support [facility] and [facility] [address] [facility], [address] [place] [address] Ish Still MD White[place], Deion E RN Squamous cell carcinoma of skin of left upper limb, including shoulder 09/03/2024 Travel 08/27/2024 Orders Only On License Of [facility] and [facility] [address] [place] [address], [address] [place] [address] Ish Still MD Squamous cell carcinoma of skin of left upper limb, including shoulder (Primary Dx) 08/20/2024 7:30 AM CDT Procedure visit On License Of [facility] and [facility] [address] [place] [address], [address] [place] [address] Ish Still MD 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>; Squamous cell carcinoma, NOS of skin of upper limb and shoulder <Left>; 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; Squamous cell carcinoma of skin of left upper limb, including shoulder 08/20/2024 Documentation [facility] [address] [facility] Main [facility], 10th Floor, [place] [address] Odilia Ruiz 08/20/2024 Travel 08/15/2024 Documentation [facility] [facility] [address] [place] [address], Floor 6 [place] [address] Enrike Alvarado RN 07/31/2024 Telephone [facility] [place] [facility] and [facility] [address] [facility], Floor 6 [place] [address] Enrike Alvarado RN 07/22/2024 Orders Only On License Of [facility] - [facility]atology [facility] [address] [facility], Floor 6 [place] [address] John Rey MD 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 (Primary Dx); Squamous cell carcinoma of skin of left upper limb, including shoulder 07/22/2024 [facility]phone [facility] [address] [place] [address] Main [facility], 9th [place] [address] Puma Taylor MD 07/17/2024 10:45 AM CDT Follow-Up [facility] Derm[facility]ology [address] [place] [address], 9th [place] [address] Kameron Jung MD Seborrheic keratosis (Primary Dx); Squamous cell carcinoma of scalp; Actinic keratosis; Personal history of other malignant neoplasm of skin; Neoplasm of uncertain behavior of skin 07/17/2024 Travel 03/09/2024 1:05 AM CDT Ancillary Procedure Image Library [address] [place] [id number] Chema Power MD Cancer 03/09/2024 1:00 AM CDT Ancillary Procedure Image Library [address] [place] [id number] Chema Power MD Cancer after 03/03/2024 Surgical History Surgery Date Site/Laterality Comments APPENDECTOMY 10/23/1949 - 10/22/1950 COLONOSCOPY 10/23/2014 - 10/22/2015 Polyps KNEE ARTHROPLASTY 10/23/2014 - 10/22/2015 Left SHOULDER SURGERY 10/23/2007 - 10/22/2008 TONSILLECTOMY NC INSJ TUNNELED CTR VAD W/SUBQ PORT AGE 4 YR/> 02/04/2019 Chest/Right Procedure: PORT-A-CATH PLACEMENT; Surgeon: Shon Fallon MD; Location: [facility]; Service: SURG ONC - PORT Medical devices from this surgery are in the Medical Devices section. NC FLUORO CENTRAL VENOUS ACCESS DEV PLACEMENT 02/04/2019 Neck/N/A Procedure: FLUORO GUIDANCE FOR CENTRAL VENOUS ACCESS DEVICE PLACEMENT, REPLACEMENT, OR REMOVAL; Surgeon: Shon Fallon MD; Location: [facility]; Service: SURG ONC - PORT Medical devices from this surgery are in the Medical Devices section. NC US VASC ACCESS SITS VSL PATENCY NDL ENTRY 02/04/2019 Neck/N/A Procedure: US GUIDANCE WITH EVAL OF POTENTIAL ACCESS SITES, REALTIME US VISUALIZATION OF VASC NEEDLE ENTRY; Surgeon: Shon Fallon MD; Location: [facility]; Service: SURG ONC - PORT Medical devices from this surgery are in the Medical Devices section. 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 Deep venous thrombosis 2019 DVT, righ t arm Atrial fibrillation Chronic obstructive pulmonary disease Arrhythmia Current use of anticoagulant Personal history of chemotherapy Family History Medical History Relation Name Comments -Breast cancer Daughter 1 Judy Oconnor Treated at A -Breast cancer Daughter 2 Misti Malave Treated at A Lung cancer Father Chris Sarkar Hypertension Mother Stroke Mother -Breast cancer Sister Chante Santo Blindness Neg Hx Cataracts Neg Hx Glaucoma Neg Hx Macular degeneration Neg Hx Retinal detachment Neg Hx Relation Name Status Comments Daughter 1 Judy Oconnor Daughter 2 Misti Malave Father Chris Sarkar Mother Sister Chante Santo Social History Tobacco Use Types Packs/Day Years Used Date Smoking Tobacco: Former Cigarettes 0.5 5 0 10/23/1989 - 10/23/1994 Smokeless Tobacco: Former Quit: 11/27/2014 Tobacco Cessation:Counseling Given: Not Answered Alcohol Use Standard Drinks/Week Comments Yes 2 (1 standard drink = 0.6 oz pur e alcohol) Sex and Gender Information Value Date Recorded Sex Assigned at Male 01/14/2022 9:49 AM CDT Legal Sex Male 3:50 PM INSIDE SALES DIRECTOR Gender Identity Male 01/14/2022 9:49 AM CDT Sexual Orientation Straight 01/14/2022 9: 49 AM CDT Obstetrics History Last Filed Vital Signs Vital Sign Reading Time Taken Comments Blood Pressure 124/75 01/29/2025 12:06 PM CDT Pulse 70 01/29/2025 12:06 PM CDT Temperature 36.7 °C (98.1 °F) 01/29/2025 12:06 PM C DT Respiratory Rate 18 01/29/2025 12:06 PM CDT Oxygen Saturation 94% 01/29/2025 12:06 PM CDT Inhaled Oxygen Concentration - - Weight 81.2 kg (179 lb 0.2 oz) 01/29/2025 12:06 PM CDT Height 171 cm (5' 7.32") 08/20/2024 9:00 AM CDT Body Mass Index 27.77 08/20/2024 9:00 AM CDT Plan of Treatment Upcoming Encounters Date Type Department Care Team (Late st Contact Info) Description 03/31/2025 8:30 AM CDT Procedure visit On License Of [facility] [address] [facility], Floor 6 [place] [address] Ish Still MD [address] [place] [id number] [email or web address] 08/04/2025 1:15 PM CDT [facility] [address] [place] [address], 9th [place] [address] Kameron Jung MD [address] [place] [phone] [email or web address] 06/03/2026 10:00 AM CDT Appointment [facility] [address] [place] [id number] Irma Berry APRN [address] [place] [address] [email or web address] 06/03/2026 10:[address] [facility] [address] [place] [address], 3rd [place] [address] Irma Berry APRN [address] [place] [address] [email or web address] 06/04/2026 11:30 AM CDT Follow-Up [facility] Main [facility], 6th [place] [address] Chema Power MD [address] [place], [place] [phone] [email or web address] Health Maintenance Due Date Last Done Comments COVID-19 Vaccine (2023- 5 season) 2024 08/15/2021, 11/26/2020, 10/28/2020 Pneumococcal Vaccine: 50+ Years Completed 06/05/2023, 08/22/2018, 05/04/2018, Additional history exists Influenza Vaccine Completed 08/12/2024, , 08/31/2022, Additional history exists Medical Devices Implanted Type Area [employer]orer Stores Device Identifier Shelf Expiration Date Model / Serial / Lot Pwrport, Clearvue Slim 6fr - Sn/A Implanted:Qty : 1 on 02/04/2019 by Shon Fallon MD at [facility] Port Left: Internal Jugular BARD PERIPHERAL VASCULAR [id number] 02/20/2020 [id number] / N/A / [id number] Description:CATH. LENGTH - 2 9 CMS. Procedures Procedure Name Priority Date/Time Associated Diagnosis Comments PATHOLOGY BIOPSY INTERPRETATION Routine 01/29/2025 1:09 PM CDT Neoplasm of uncertain behavior of skin CT CHEST ABDOMEN PELVIS W CONTRAST LYMPHOMA Routine 11/27/2024 12:45 PM INSIDE SALES DIRECTOR High grade B-cell lymphoma CT NECK W CONTRAST LYMPHOMA Routine 11/27/2024 12:45 PM INSIDE SALES DIRECTOR High grade B-cell lymphoma .CBC Routine 11/27/2024 9:21 AM INSIDE SALES DIRECTOR High grade B-cell lymphoma ELECTROLYTE PANEL Routine 11/27/2024 9:2 1 AM INSIDE SALES DIRECTOR High grade B-cell lymphoma ASPARTATE AMINOTRANSFERASE Routine 11/27/2024 9:21 AM INSIDE SALES DIRECTOR High grade B-cell lymphoma MAGNESIUM LEVEL Routine 11/27/2024 9:21 AM INSIDE SALES DIRECTOR High grade B-cell lymphoma ALANINE AMINOTRANSFERASE Routine 025 9:21 AM INSIDE SALES DIRECTOR High grade B-cell lymphoma LACTATE DEHYDROGENASE Routine 11/27/2024 9:21 AM INSIDE SALES DIRECTOR High grade B-cell lymphoma ALKALINE PHOSPHATASE Routine 11/27/2024 9:21 AM INSIDE SALES DIRECTOR High grade B-cell lymphoma FRACTIONATED BILIRUBIN Routine 9:21 AM INSIDE SALES DIRECTOR High grade B-cell lymphoma URIC ACID Routine 11/27/2024 9:21 AM INSIDE SALES DIRECTOR High grade B-cell lymphoma CREATININE Routine 11/27/2024 9:21 AM INSIDE SALES DIRECTOR High grade B-cell lymphoma BLOOD UREA NITROGEN Routine 11/27/2024 9 :21 AM INSIDE SALES DIRECTOR High grade B-cell lymphoma GLUCOSE, RANDOM Routine 11/27/2024 9:21 AM INSIDE SALES DIRECTOR High grade B-cell lymphoma PHOSPHORUS LEVEL Routine 11/27/2024 9:21 AM INSIDE SALES DIRECTOR High grade B-cell lymphoma CALCIUM LEVEL Routine 11/27/2024 9:21 AM INSIDE SALES DIRECTOR High grade B-cell lymphoma ALBUMIN LEVEL Routine 11/27/2024 9:21 AM INSIDE SALES DIRECTOR High grade B-cell lymphoma TOTAL PROTEIN Routine 11/27/2024 9:21 AM INSIDE SALES DIRECTOR High grade B-cell lymphoma TYPE AND SCREEN Routine 11/27/2024 9:21 AM INSIDE SALES DIRECTOR High grade B-cell lymphoma COMPLETE BLOOD COUNT W/ DIFFERENTIAL Routine 11/27/2024 9:21 AM INSIDE SALES DIRECTOR High grade B-cell lymphoma PATHOLOGY BIOPSY INTERPRETATION Routine 07/17/2024 11:34 AM CDT 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 Submitted Clinical History A: BCC vs SCC B: HAK vs SCC C: SCC vs HAK 01/30/2025 10:22 AM CDT [facility] Diagnosis A: Skin, left proximal forearm, shave: BASAL CELL CARCINOMA, NODULAR AND FOCAL INFILTRATIVE PATTERNS, PRESENT AT DEEP TISSUE EDGE. B: Skin, left elbow, shave: Hyperplastic actinic keratosis, lichenoid type, with adnexal extension and focal features of lichen simplex chronicus, present at tissue edges. See comment. C: Skin, right ulnar hand,shave: Superficial aspect of hyperplastic actinic keratosis with verrucous features, present at tissue edges. See comment. 01/30/2025 10:22 AM T [facility] Comment B. An additional biopsy may become necessary should this lesion fail to respond to conservative therapy. C. Atypical cells extend to the base of the specimen. Squamous cell carcinoma is not completely ruled out. 01/30/2025 10:22 AM CDT [facility] Gross Description A: Skin, a) left proximal forearm: A roughened rey-red skin shave measuring 1.0 x 0.6 x 0.1 cm. The specimen is inked, trisected, entirely submitted in A1. GM B: Skin, b) left elbow: A roughened, crusted rey-white skin shave measuring 1.0 x 0.8 x 0.3 cm. The specimen is inked, trisected, entirely submitted in B1. GM C: Skin, c) right ulnar hand: A roughened rey-white skin shave measuring 1.0 x 0.7 x 0.1 cm. The specimen is inked, trisected, entirely submitted in C1. GM 01/30/2025 10:22 AM CDT [facility] Biomarker Block(s) Block for biomarker testing: N/A Normal block: N/A 01/30/2025 10:22 AM CDT [facility] Disclaimer "Some tests reported here may have been developed and performance characteristics determined by [facility] Laboratory Medicine. These tests have not been specifically cleared or approved by the U.S. Food and Drug Administration. If applicable, controls were reviewed and showed appropriate reactivity." 01/30/2025 10:22 AM CDT [facility] Tissue (Skin) 01/29/2025 1:0 9 PM CDT 01/29/2025 3:01 PM CDT Tissue specimen (specimen) (Skin) 01/29/2025 1:12 PM CDT 01/29/2025 3:01 PM CDT Tissue specimen (specimen) (Skin) 01/29/2025 1:12 PM CDT 01/29/2025 3:01 PM CDT us Kameron Jung MD LAB PATHOLOGY ORDERABLES Final R esult [facility] [address] [place] [phone], [place] * CT Chest Abdomen Pelvis with Contrast Lymphoma (11/27/2024 12:45 PM INSIDE SALES DIRECTOR) Anatomical Region Laterality Modality Chest, Abdomen, Pelvis Computed Tomography 11/27/2024 4:33 PM INSIDE SALES DIRECTOR Impressions 11/27/2024 4:45 PM INSIDE SALES DIRECTOR 1. Overall, stable findings of chronic interstitial changes involving the periphery of the lung grissom in the lung bases that has been described previously as likely pulmonary fibrosis. 2. No suspicious adenopathy within the chest abdomen or pelvis. No splenomegaly. 3. On today's study, a loop of the sigmoid colon has herniated into the left inguinal canal. No evidence of bowel obstruction or bowel compromise. ACTIONABLE ITEMS/RECOMMENDATIONS*: None. *An Actionable Finding is a finding that may be unrelated to the original reason for imaging but potentially actionable, meaning further investigation may be necessary. The Actionable Findings Vigilance Unit (AFVU) assists medical providers with responding to additional radiologic findings that are unexpected and potentially actionable. Narrative 11/27/2024 4:45 PM INSIDE SALES DIRECTOR FULL RESULT: Examination: CT CHEST ABDOMEN PELVIS W CONTRAST LYMPHOMA on 11/27/2024 12:45 PM. Clinical History: High grade B-cell lymphoma. Indication: lymphoma; restaging. Comparison: Prior [facility] CT of the vertebrae second 2023. The interim outside CT of 12/12/2023 is incomplete. No diagnostic images are available from that study.. Technique: CT CHEST ABDOMEN PELVIS W CONTRAST LYMPHOMA. FINDINGS: CHEST FINDINGS: Lines, Tubes, Devices: Dual-lead pacemaker with tips in right atrium and right ventricle. Lungs and Pleura: Again seen are interstitial opacities at the periphery of the lung grissom and most prominently seen at the lung bases bilaterally for example image 119 of series 303. In this constrained setting, no definite new lesions are seen. No definite pulmonary nodules or masses. The overall appearance is very similar to that on the immediate prior study of 11/24/2023 consistent with a chronic process and it has been suggested before that the findings may be indicative of fibrosis.. No pleural effusion. Cardiomediastinum: Heart: Atherosclerotic coronary artery calcifications. Thyroid: Stable 17 mm peripherally calcified hypodense thyroid nodule. Lymph Nodes: No adenopathy. ABDOMEN AND PELVIS FINDINGS: Hepatobiliary: No suspicious hepatic lesions. No biliary dilatation. No cholecystitis. Spleen: No splenomegaly. Pancreas: No mass or duct dilatation. Adrenal Glands: No masses. Kidneys, Ureters, Bladder: No hydronephrosis. No suspicious renal lesion. Hypodensities, the smaller of which are too small to characterize but the larger of which appear to be simple and cystic in appearance. The largest, arises from the left renal upper pole, measures 9.1 cm before 11.1 cm. Most are stable since the prior study. These can be managed by follow-up. No bladder mass. Gastrointestinal Tract: No obstruction. Scattered diverticuli. Today is seen herniation of a loop of sigmoid colon into the left inguinal canal without evidence of bowel compromise Pelvic Organs: Stable enlarged prostate measuring 56 x 53 mm. Peritoneum/Retroperitoneum: No ascites. Lymph Nodes: No lymphadenopathy. Vessels: Findings of atherosclerotic disease in abdominopelvic vessels. MUSCULOSKELETAL FINDINGS: Stable sclerotic focus 17 mm left acetabulum unchanged since at least 06/23/2021. Degenerative changes of the spine. Deformity right ribs consistent with old trauma. Procedure Note Kevin Ann MD - 11/27/2024 FULL RESULT: Examination: CT CHEST ABDOMEN PELVIS W CONTRAST LYMPHOMA on 11/27/2024 12:45PM. Clinical History: High grade B-cell lymphoma. Indication: lymphoma; restaging. Comparison: Prior [facility] CT of the vertebrae second 2023. Theinterim outside CT of 12/12/2023 is incomplete. No diagnostic images areavailable from that study.. Technique: CT CHEST ABDOMEN PELVIS W CONTRAST LYMPHOMA. FINDINGS: CHEST FINDINGS: Lines, Tubes, Devices: Dual-lead pacemaker with tips in right atrium andright ventricle. Lungs and Pleura: Again seen are interstitial opacities at the peripheryof the lung grissom and most prominently seen at the lung bases bilaterallyfor example image 119 of series 303. In this constrained setting, nodefinite new lesions are seen. No definite pulmonary nodules or masses.The overall appearance is very similar to that on the immediate priorstudy of 11/24/2023 consistent with a chronic process and it has beensuggested before that the findings may be indicative of fibrosis.. No pleural effusion. Cardiomediastinum: Heart: Atherosclerotic coronary artery calcifications. Thyroid: Stable 17 mm peripherally calcified hypodense thyroid nodule. Lymph Nodes: No adenopathy. ABDOMEN AND PELVIS FINDINGS: Hepatobiliary: No suspicious hepatic lesions. No biliary dilatation. No cholecystitis. Spleen: No splenomegaly. Pancreas: No mass or duct dilatation. Adrenal Glands: No masses. Kidneys, Ureters, Bladder: No hydronephrosis. No suspicious renal lesion.Hypodensities, the smaller of which are too small to characterize but thelarger of which appear to be simple and cystic in appearance. The largest,arises from the left renal upper pole, measures 9.1 cm before 11.1 cm.Most are stable since the prior study. These can be managed by follow-up. No bladder mass. Gastrointestinal Tract: No obstruction. Scattered diverticuli. Today is seen herniation of a loop of sigmoid colon into the left inguinalcanal without evidence of bowel compromise Pelvic Organs: Stable enlarged prostate measuring 56 x 53 mm. Peritoneum/Retroperitoneum: No ascites. Lymph Nodes: No lymphadenopathy. Vessels: Findings of atherosclerotic disease in abdominopelvic vessels. MUSCULOSKELETAL FINDINGS: Stable sclerotic focus 17 mm left acetabulum unchanged since at least06/23/2021. Degenerative changes of the spine. Deformity right ribs consistent with old trauma. IMPRESSION: 1. Overall, stable findings of chronic interstitial changes involving theperiphery of the lung grissom in the lung bases that has been describedpreviously as likely pulmonary fibrosis. 2. No suspicious adenopathy within the chest abdomen or pelvis. Nosplenomegaly. 3. On today's study, a loop of the sigmoid colon has herniated into theleft inguinal canal. No evidence of bowel obstruction or bowelcompromise. ACTIONABLE ITEMS/RECOMMENDATIONS*: None. *An Actionable Finding is a finding that may be unrelated to the originalreason for imaging but potentially actionable, meaning furtherinvestigation may be necessary. The Actionable Findings Vigilance Unit(AFVU) assists medical providers with responding to additional radiologicfindings that are unexpected and potentially actionable. Irma Berry CAD DESIGN ENGINEER IM CT ORDERABLES Final Resu lt * CT Neck with Contrast Lymphoma (11/27/2024 12:45 PM INSIDE SALES DIRECTOR) Anatomical Region Laterality Modality Neck Computed Tomogra phy 11/27/2024 6:19 PM INSIDE SALES DIRECTOR Impressions 11/27/2024 6:28 PM INSIDE SALES DIRECTOR 1. No cervical lymphadenopathy. 2. No acute sinusitis. ACTIONABLE ITEMS/RECOMMENDATIONS*: None. *An Actionable Finding is a finding that may be unrelated to the original reason for imaging but potentially actionable, meaning further investigation may be necessary. The Actionable Findings Vigilance Unit (AFVU) assists medical providers with responding to additional radiologic findings that are unexpected and potentially actionable. Narrative 11/27/2024 6:28 PM INSIDE SALES DIRECTOR FULL RESULT: Examination: CT NECK W CONTRAST LYMPHOMA on 11/27/2024 12:45 PM. CLINICAL HISTORY: High grade B-cell lymphoma INDICATION: 83M with lymphoma; restaging COMPARISON: 11/24/2023. TECHNIQUE: CT neck with IV contrast was performed. FINDINGS: Lymph nodes: No cervical lymphadenopathy is present. Other findings: The upper aerodigestive tract is unremarkable. The major salivary glands are unremarkable. There is a hypodense right lobe nodule with interrupted coarse peripheral calcifications that is stable from the prior examination. The visualized paranasal sinuses are predominantly clear. The cervical arteries and veins are patent. The visualized brain parenchyma is unremarkable. Please refer to concurrent chest CT. Procedure Note Navdeep Wynne MD - 11/27/2024 FULL RESULT: Examination: CT NECK W CONTRAST LYMPHOMA on 11/27/2024 12:45 PM. CLINICAL HISTORY: High grade B-cell lymphoma INDICATION: 83M with lymphoma; restaging COMPARISON: 11/24/2023. TECHNIQUE: CT neck with IV contrast was performed. FINDINGS: Lymph nodes: No cervical lymphadenopathy is present. Other findings: The upper aerodigestive tract is unremarkable. The major salivary glands are unremarkable. There is a hypodense right lobe nodule with interrupted coarse peripheralcalcifications that is stable from the prior examination. The visualized paranasal sinuses are predominantly clear. The cervical arteries and veins are patent. The visualized brain parenchyma is unremarkable. Please refer to concurrent chest CT. IMPRESSION: 1. No cervical lymphadenopathy. 2. No acute sinusitis. ACTIONABLE ITEMS/RECOMMENDATIONS*: None. *An Actionable Finding is a finding that may be unrelated to the originalreason for imaging but potentially actionable, meaning furtherinvestigation may be necessary. The Actionable Findings Vigilance Unit(AFVU) assists medical providers with responding to additional radiologicfindings that are unexpected and potentially actionable. [facility] CAD DESIGN ENGINEER IMG CT ORDERABLES Final Resu lt * Glucose, Random (11/27/2024 9:21 AM INSIDE SALES DIRECTOR) Glucose Random 133 70 - 199 mg/dL 11/27/2024 10:20 AM INSIDE SALES DIRECTOR [facility] Blood Peripheral blood specimen / Unknown Venipuncture / Unknown 11/27/2024 9:21 AM INSIDE SALES DIRECTOR 11/27/2024 9:26 AM INSIDE SALES DIRECTOR Narrative [facility] - 11/27/2024 10:20 AM INSIDE SALES DIRECTOR Effective 05/18/16, the glucose reference intervals have been updated based on [place] Diabetes Association guidelines (Standards of Medical Care in Diabetes 2016. Diabetes Care 2016; 39: S13-S22). Fasting blood glucose: Normal: 70-99 mg/dL Impaired fasting glucose (increased risk for diabetes or pre-diabetes): 100-125 mg/dL Diabetes mellitus: >/=126 mg/dL Random blood glucose: Normal: 70-199 mg/dL Note: Random glucose >100 mg/dL is associated with increased risk for diabetes us Irma Berry CAD DESIGN ENGINEER LAB BLOOD ORDERABLES Final R esult [facility] Unless otherwise noted, all lab tests performed by: Division of Pathology and Laboratory Medicine [address] [place] [id number] * (ABNORMAL) .CBC (11/27/2024 9:21 AM [facility]) White Blood Cell 9.0 4.1 - 10.5 K/uL 11/27/2024 9:40 AM [facility] Red Blood Cell 4.46 4.30 - 6.04 M/uL 11/27/2024 9:40 AM [facility] Hemoglobin 14.0 13.3 - 17.4 g/dL 11/27/2024 9:40 AM [facility] Hematocrit 41.3 39.5 - 51.8 % 11/27/2024 9:40 AM [facility] Mean Cell Volume 93 82 - 99 fL 11/27/2024 9:40 AM [facility] Mean Cell Hemoglobin 31.4 26.6 - 33.2 pg 11/27/2024 9:40 AM [facility] Mean Cell Hemoglobin Concentration 33.9 31.1 - 35.2 g/dL 11/27/2024 9:40 AM [facility] RDW-SD 44.9 37.5 - 49.7 fL 11/27/2024 9:40 AM [facility] Red Cell Diameter Width 13.1 11.6 - 15.5 % 11/27/2024 9:40 AM [facility] Platelet 206 160 - 397 K/uL 11/27/2024 9:40 AM [facility] Mean Platelet Volume 9.7 9.1 - 12.6 fL 11/27/2024 9:40 AM [facility] INRBC 0.0 0.0 - 0.1 /100 WBC 11/27/2024 9:40 AM [facility] Comment: The INRBC (instrument NRBC) value reflects the enumeration of nucleated red blood cells contained in a 200uL sample of whole blood analyzed by the instrument. This value may differ from the NRBC value reported in a manual differential, which is based on a 100 cell differential. Neutrophil % 77.8(H) 43.2 - 72.7 % 11/27/2024 9:40 AM [facility] Lymphocyte % 10.4(L) 16.8 - 46.2 % 11/27/2024 9:40 AM [facility] Monocyte % 10.3 5.1 - 12.5 % 11/27/2024 9:40 AM [facility] Eosinophil % 0.9 0.4 - 6.3 % 11/27/2024 9:40 AM [facility] Basophil % 0.2 0.2 - 1.4 % 11/27/2024 9:40 AM [facility] IGRE % 0.4 0.1 - 1.5 % 11/27/2024 9:40 AM [facility] Comment:The IGRE% includes M etamyelocytes, Myelocytes and Promyelocytes. Neutrophil Abs 7.00 1.95 - 7.25 K/uL 11/27/2024 9:40 AM [facility] Lymphocyte Abs 0.94(L) 1.01 - 3.24 K/uL 11/27/2024 9:40 AM [facility] Monocyte Abs 0.93(H) 0.24 - 0.85 K/uL 11/27/2024 9:40 AM [facility] Eosinophil Abs 0.08 0.02 - 0.50 K/uL 11/27/2024 9:40 AM [facility] Basophil Abs 0.02 0.02 - 0.09 K/uL 11/27/2024 9:40 AM [facility] IG Abs 0.04 0.01 - 0.12 K/uL 11/27/2024 9:40 AM [facility] Blood Peripheral blood specimen / Unknown Venipuncture / Unknown 11/27/2024 9:21 AM INSIDE SALES DIRECTOR 11/27/2024 9:24 AM INSIDE SALES DIRECTOR [facility] LAB BLOOD ORDERABLES Final R esult [facility] Unless otherwise noted, all lab tests performed by: Division of Pathology and Laboratory Medicine [address] [place] [phone] * Fractionated Bilirubin (11/27/2024 9:21 AM [facility]) Pathologist [facility] Bilirubin Direct 0.2 0.0 - 0.2 mg/dL 11/27/2024 10:20 AM [facility] Comment:Indocyanine Green (I CG) may cause falsely elevated bilirubin results. Total and direct bilirubin must not be measured from samples containing indocyanine green. Bilirubin Indirect 0.4 0.0 - 1.0 mg/dL 11/27/2024 10:20 AM [facility] Bilirubin Total 0.6 0.0 - 1.2 mg/dL 11/27/2024 10:20 AM [facility] Comment:Indocyanine Green (I CG) may cause falsely elevated bilirubin results. Total and direct bilirubin must not be measured from samples containing indocyanine green. False elevation of total bilirubin can be seen in patients with IgG concentrations above 28 g/L. Blood Peripheral blood specimen / Unknown Venipuncture / Unknown 11/27/2024 9:21 AM INSIDE SALES DIRECTOR 11/27/2024 9:26 AM INSIDE SALES DIRECTOR [facility] LAB BLOOD ORDERABLES Final R esult [facility] Unless otherwise noted, all lab tests performed by: Division of Pathology and Laboratory Medicine [address] [place] [address] [phone] * Type and Screen (11/27/2024 9:21 AM [facility]) ABORh O POS 11/27/2024 9:09 AM [facility] ABSC Negative 11/27/2024 9:09 AM [facility] Clot Expiration 11/30/2024 23:59 11/27/2024 9:09 AM INSIDE SALES DIRECTOR [facility] Historical Record Check Complete 11/27/2024 9:09 AM INSIDE SALES DIRECTOR [facility] Blood Peripheral blood specimen / Unknown Venipuncture / Unknown 11/27/2024 9:21 AM INSIDE SALES DIRECTOR 11/27/2024 9:24 AM INSIDE SALES DIRECTOR [facility] BLOOD BANK TEST ORDERABLES F inal Result [facility] [address] [place] [address] [id number] [place] [address] * Uric Acid (11/27/2024 9:21 AM INSIDE SALES DIRECTOR) Uric Acid 5.6 3.4 - 7.0 mg/dL 11/27/2024 10:20 AM INSIDE SALES DIRECTOR [facility] Blood Peripheral blood specimen / Unknown Venipuncture / Unknown 11/27/2024 9:21 AM INSIDE SALES DIRECTOR 11/27/2024 9:26 AM INSIDE SALES DIRECTOR [facility] LAB BLOOD ORDERABLES Final R esult [facility] Unless otherwise noted, all lab tests performed by: Division of Pathology and Laboratory Medicine [address] [place] [address] [id number] * BUN (11/27/2024 9:21 AM INSIDE SALES DIRECTOR) BUN 17 6 - 23 mg/dL 11/27/2024 10:20 AM INSIDE SALES DIRECTOR [facility] Blood Peripheral blood specimen / Unknown Venipuncture / Unknown 11/27/2024 9:21 AM INSIDE SALES DIRECTOR 11/27/2024 9:26 AM INSIDE SALES DIRECTOR [facility] LAB BLOOD ORDERABLES Final R esult [facility] Unless otherwise noted, all lab tests performed by: Division of Pathology and Laboratory Medicine [address] [place] [phone] * Alanine Aminotransferase (11/27/2024 9:21 AM INSIDE SALES DIRECTOR) ALT 14 <=41 U/L 11/27/2024 10:20 AM INSIDE SALES DIRECTOR [facility] Blood Peripheral blood specimen / Unknown Venipuncture / Unknown 11/27/2024 9:21 AM INSIDE SALES DIRECTOR 11/27/2024 9:26 AM INSIDE SALES DIRECTOR [facility] LAB BLOOD ORDERABLES Final R esult [facility] Unless otherwise noted, all lab tests performed by: Division of Pathology and Laboratory Medicine [address] [place] [address] [id number] * Aspartate Aminotransferase (11/27/2024 9:21 AM INSIDE SALES DIRECTOR) AST 19 <=40 U/L 11/27/2024 10:20 AM INSIDE SALES DIRECTOR [facility] Blood Peripheral blood specimen / Unknown Venipuncture / Unknown 11/27/2024 9:21 AM INSIDE SALES DIRECTOR 11/27/2024 9:26 AM INSIDE SALES DIRECTOR [facility] LAB BLOOD ORDERABLES Final R esult [facility] Unless otherwise noted, all lab tests performed by: Division of Pathology and Laboratory Medicine [address] [place] [id number] * Total Protein (11/27/2024 9:21 AM INSIDE SALES DIRECTOR) Tot Protein 6.8 6.4 - 8.3 gm/dL 11/27/2024 10:20 AM INSIDE SALES DIRECTOR [facility] Blood Peripheral blood specimen / Unknown Venipuncture / Unknown 11/27/2024 9:21 AM INSIDE SALES DIRECTOR 11/27/2024 9:26 AM INSIDE SALES DIRECTOR Narrative [facility] - 11/27/2024 10:20 AM INSIDE SALES DIRECTOR Reference range established based on adult population [facility] LAB BLOOD ORDERABLES Final R esult Performing Organization Address City/[facility] Co de Phone Number [facility] Unless otherwise noted, all lab tests performed by: Division of Pathology and Laboratory Medicine [address] [place] [phone] * Phosphorus Level (11/27/2024 9:21 AM INSIDE SALES DIRECTOR) Phosphorus Level 2.8 2.5 - 4.5 mg/dL 11/27/2024 10:20 AM INSIDE SALES DIRECTOR [facility] Blood Peripheral blood specimen / Unknown Venipuncture / Unknown 11/27/2024 9:21 AM INSIDE SALES DIRECTOR 11/27/2024 9:26 AM INSIDE SALES DIRECTOR [facility] LAB BLOOD ORDERABLES Final R esult Performing Organization Address [facility] Co de Phone Number [facility] Unless otherwise noted, all lab tests performed by: Division of Pathology and Laboratory Medicine [address] [place] [address] [phone] * Alkaline Phosphatase (11/27/2024 9:21 AM INSIDE SALES DIRECTOR) Alkaline Phosphatase 88 40 - 129 U/L 11/27/2024 10:20 AM INSIDE SALES DIRECTOR [facility] Blood Peripheral blood specimen / Unknown Venipuncture / Unknown 11/27/2024 9:21 AM INSIDE SALES DIRECTOR 11/27/2024 9:26 AM INSIDE SALES DIRECTOR [facility] LAB BLOOD ORDERABLES Final R esult Performing Organization Address City/State/[facility] Co de Phone Number [facility] Unless otherwise noted, all lab tests performed by: Division of Pathology and Laboratory Medicine [address] [place] [address] [phone] * Magnesium Level (11/27/2024 9:21 AM INSIDE SALES DIRECTOR) Magnesium Level 2.2 1.6 - 2.6 mg/dL 11/27/2024 10:20 AM INSIDE SALES DIRECTOR [facility] Blood Peripheral blood specimen / Unknown Venipuncture / Unknown 11/27/2024 9:21 AM INSIDE SALES DIRECTOR 11/27/2024 9:26 AM INSIDE SALES DIRECTOR [facility] LAB BLOOD ORDERABLES Final R esult Performing Organization Address [facility] de Phone Number [facility] Unless otherwise noted, all lab tests performed by: Division of Pathology and Laboratory Medicine [address] [place] [address] 970[address] * LDH (11/27/2024 9:21 AM INSIDE SALES DIRECTOR) LDH 218 135 - 225 U/L 11/27/2024 10:16 AM INSIDE SALES DIRECTOR [facility] Blood Peripheral blood specimen / Unknown Venipuncture / Unknown 11/27/2024 9:21 AM INSIDE SALES DIRECTOR 11/27/2024 9:26 AM INSIDE SALES DIRECTOR Narrative [facility] - 11/27/2024 10:16 AM INSIDE SALES DIRECTOR Results greater than 1651 U/L may not be reliable due to matrix effect with extended dilution as it exceeds the software performance engineer's recommended limit. Caution should be exercised when interpreting such values and done in conjunction with clinical context. [facility] LAB BLOOD ORDERABLES Final R [facility] Performing Organization Address [facility] de Phone Number [facility] Unless otherwise noted, all lab tests performed by: Division of Pathology and Laboratory Medicine [address] [place] [address] 24659 * Creatinine (11/27/2024 9:21 AM INSIDE SALES DIRECTOR) Creatinine 1.10 0.67 - 1.17 mg/dL 11/27/2024 10:20 AM INSIDE SALES DIRECTOR [facility] eGFR 66 >=60 mL/min/1.7 3 sq. m 11/27/2024 10:20 AM [facility] Comment: The eGFRcr is calculated with the 2020 CKD-EPI creatinine equation using creatinine, patient's age, and sex for adults 18 years of age and older. Other factors, especially muscle mass, may affect accuracy and need to be considered. According to the Kidney Disease: Improving Global Outcomes (KDIGO) CKD Work Group 2012 Clinical Practice Guideline, chronic kidney disease (CKD) is defined as the abnormalities of kidney structure or function, present for more than 3 months, with implications for health. CKD should be classified by cause, GFR category, and albuminuria category. KDIGO guidelines provide the following GFR categories. Stage / Description / GFR mL/min/1.73 m2: G1* / Normal or high / >= 90 G2* / Mildly decreased / 60-89 G3a / Mildly to moderately decreased / 45-59 G3b / Moderately to severely decreased / 30-44 G4 / Severely decreased / 15-29 G5 / Kidney failure / <15 *In the absence of evidence of kidney damage, neither G1 nor G2 fulfill criteria for CKD. Blood Peripheral blood specimen / Unknown Venipuncture / Unknown 11/27/2024 9:21 AM INSIDE SALES DIRECTOR 11/27/2024 9:26 AM INSIDE SALES DIRECTOR [facility] BLOOD ORDERABLES Final R esult Performing Organization Address City/[facility]/ZIP Co de Phone Number [facility] Unless otherwise noted, all lab tests performed by: Division of Pathology and Laboratory Medicine [address] [place] [address] [phone] * Calcium Level (11/27/2024 9:21 AM INSIDE SALES DIRECTOR) Calcium Level Total 9.0 8.2 - 10.2 mg/dL 11/27/2024 10:20 AM INSIDE SALES DIRECTOR [facility] Blood Peripheral blood specimen / Unknown Venipuncture / Unknown 11/27/2024 9:21 AM INSIDE SALES DIRECTOR 11/27/2024 9:26 AM INSIDE SALES DIRECTOR [facility] LAB BLOOD ORDERABLES Final R esult [facility] Unless otherwise noted, all lab tests performed by: Division of Pathology and Laboratory Medicine [address] [place] [address] [phone] * Albumin Level (11/27/2024 9:21 AM INSIDE SALES DIRECTOR) Albumin Level 4.2 3.5 - 5.2 gm/dL 11/27/2024 10:20 AM INSIDE SALES DIRECTOR [facility] Blood Peripheral blood specimen / Unknown Venipuncture / Unknown 11/27/2024 9:21 AM INSIDE SALES DIRECTOR 11/27/2024 9:26 AM INSIDE SALES DIRECTOR [facility] [employer] LAB BLOOD ORDERABLES Final R esult [facility] Unless otherwise noted, all lab tests performed by: Division of Pathology and Laboratory Medicine [address] [place] [phone] * Electrolyte Panel (11/27/2024 9:21 AM INSIDE SALES DIRECTOR) Sodium Level 138 136 - 145 mmol/L 11/27/2024 10:20 AM INSIDE SALES DIRECTOR [facility] Potassium Level 4.0 3.4 - 4.5 mmol/L 11/27/2024 10:20 AM [facility] Chloride 103 98 - 107 mmol/L 11/27/2024 10:20 AM [facility] CO2 28 22 - 29 mmol/L 11/27/2024 10:20 AM [facility] Anion Gap 7 4 - 14 mmol/L 11/27/2024 10:20 AM [facility] Blood Peripheral blood specimen / Unknown Venipuncture / Unknown 11/27/2024 9:21 AM INSIDE SALES DIRECTOR 11/27/2024 9:26 AM INSIDE SALES DIRECTOR [facility] [employer] LAB BLOOD ORDERABLES Final R esult [facility] Unless otherwise noted, all lab tests performed by: Division of Pathology and Laboratory Medicine [address] [place] [phone] after 03/03/2024 Insurance [employer] MED[employer]ARE PPO [employer] MED[employer] PPO Advance Directives * Full Code (Latest Code Status on File) Date Activated Date Inactivated Comments 04/09/2019 7:17 PM 04/14/2019 4:51 PM * Full Code Date Activated Date Inactivated Comments 03/19/2019 5:31 PM 03/24/2019 7:05 PM * Full Code Date Activated Date Inactivated Comments 02/25/2019 7:16 PM 03/02/2019 5:28 PM * Full Code Date Activated Date Inactivated Comments 02/04/2019 7:27 PM 02/10/2019 12:49 PM * Full Code Date Activated Date Inactivated Comments 02/04/2019 7:27 PM 02/04/2019 7:27 PM Care Teams Community Services Manager Relationship Specialty Start Date End Date Chema Power MD [address] [place] [phone] [email or web address] PCP - General Lymphoma and Myeloma 12/18/18 John Araujo MD [address] [place] [phone] PCP - External Primary Care Provider Internal Medicine 12/18/18 Ish Still MD [address] [place] [phone] [email or web address] PCP - External Follow Up C Dermatology 04/13/21 Jud Vera MD [address] [place] [place] [address] [email or web address] [email or web address] 12/20/18 Ish Still MD [address] [place] [phone] [email or web address] .[email or web address] Physician Dermatology 11/06/19 Mehul Marx MD [address] [place] [phone] [email or web address]. [email or web address] Physician Plastic and Reconstructive Surgery 11/28/19 Kameron Jung MD [address] [place] [phone] [email or web address]. [email or web address] Physician Dermatology 05/27/19 Gianni Guardado IV, MD [address] [place] [phone] [email or web address]. [facility] Consulting Physician Urology 09/08/20 Judy Harrell PA-C [address] [place] [phone] [email or web address]. [email or web address] Phys[employer] Test Director Surgical Oncology 01/08/19 Marquis Rodriguez MD [address] [place] [address] [email or web address] Consulting Physician Internal Medicine 01/22/19 Nanda Roblero MD [address] [place] [address] [email or web address]. [facility] Consulting Physician Ophthalmology 12/14/23
[2025-03-03] MEDS ORDERED: FENTANYL CITR 100 MCG/2 ML ONE (17:43)
[2025-03-03] MEDS ORDERED: NA CHLORIDE 0.9% 1,000 ML ONE (17:44)
[2025-03-03] MEDS ORDERED: LIDOCAINE 2% INJ, 20 mL 20 ML ONE (17:45)
[2025-03-03 17:51] LABS: Absolute Eosinophils 0.1 K/uL (0-0.5); Absolute Lymphocytes (CBC) 1.5 K/uL (0.7-4.9); Absolute Monocytes 1.2 K/uL (0.1-1.3); Absolute Neutrophil 8.7 K/uL (1.8-8.0); Basophils % 0.4 % (0-1.3); Eosinophils % 1.3 % (0-4.4); Hematocrit 37.6 % (39.6-49.0); Lymphocytes % 12.9 % (15.3-44.8); MCHC 34.6 g/dL (32.0-36.0); MCV 89.6 fL (80-100); MPV 7.2 fL (7.6-11.3); Monocytes % 10.7 % (3.3-12.3); Neutrophils % 74.7 % (41.7-73.7); Nucleated Red Blood Cells % 0.2 % (0-0); Platelets 259 thou/uL (152-406); RBC Red Blood Cell Count 4.19 M/uL (4.33-5.43); Red Cell Distribution Width 14.4 % (12.1-15.2)
[2025-03-03] MEDS ORDERED: MORPHINE 4 MG/ML SYR ONE ×2 (17:55→19:09)
[2025-03-03] MEDS ORDERED: ONDANSETRON 4 MG/2 ML VIAL ONE (17:55)
[2025-03-03 17:58] LABS: PT Prothrombin Time 13.9 SECONDS (10-13.0); PTT, Activated Partial Thromb 27.5 SECONDS (27.2-37.4); Protime INR 1.23
[2025-03-03 18:11] LABS: Albumin 3.1 g/dL (3.4-5.0); Anion Gap 12.4 mEq/L (5.0-15.0); Bilirubin Direct 0.2 mg/dL (0-0.2); Bilirubin Indirect, Calculated 0.3 mg/dL (0.2-0.8); Bilirubin Total 0.5 mg/dL (0.2-1.0); Globulin 3.2 g/dL (2.3-3.5); Potassium 4.4 mEq/L (3.5-5.1); Protein, Total 6.3 g/dL (6.4-8.2); Troponin High Sensitivity 12.1 pg/mL (<58.9)
[2025-03-03] MEDS ORDERED: LIDOCAINE 2% W/EPI 1:200,000 MPF 20 ML VIAL IM ONE (18:21)
--- NOTE | 2025-03-03 19:18 | RAD REPORT ---
EXAMINATION: CT HEAD WITHOUT CONTRAST CT CERVICAL SPINE WITHOUT CONTRAST CLINICAL INDICATION: Head and neck injury status post fall. Head and neck pain TECHNIQUE: Axial CT images from the skull base to the vertex without intravenous contrast. Axial CT i mages through the cervical spine were obtained without intravenous contrast. Sagittal and coronal reformatted images were created from the data set. Coronal and sagittal reformatted images were creat ed from the data set. One or more of the following dose reduction techniques were used: Automated exposure control, adjustment of the mA and/or kV according to patient size, and/or iterative reconstr uction. Unless otherwise specified, incidental findings do not require dedicated imaging follow-up. [id number]. Comparison: none FINDINGS: Left frontal scalp laceration/hematoma. An intracranial bleed is not seen. Ventricles are normal in caliber. No significant hypodensity within the brain No extra-axial fluid collection. No fluid within the sinuses/mastoids No fracture or dislocation is seen involving the cervical spine. IMPRESSION: No acute intracranial abnormality noted A cervical fracture is not seen. If the patient continues to have symptoms to suggest acute PRODUCTION GRIP/spinal pathology then MRI would be rec ommended
--- NOTE | 2025-03-03 19:32 | RAD REPORT ---
EXAM: Chest Abdomen Pelvis W Cont CLINICAL INDICATION: Chest and abdominal pain TECHNIQUE: CT chest, abdomen and pelvis was performed, with 100 cc Isovue-300 IV contrast, as per de partment protocol. Axial, sagittal and coronal reconstructions were obtained. One or more of the following dose reduction techniques were used: Automated exposure control, adjustment of the mA and/o r kV according to the patient size, and/or iterative reconstruction. Unless otherwise specified, incidental findings do not require dedicated imaging follow-up. [id number]. Oral contrast not given. This limits evaluation of the bowel. COMPARISON: None FINDINGS: A pulmonary contusion not seen. Chronic appearing bilateral lung opacities. No mediastinal hematoma noted Mildly displaced fracture left lateral fourth rib. Nondisplaced fracture fifth left lateral rib. Mild ly displaced fractures 6 lateral left rib. Minimally displaced fracture 7 left lateral rib. Minimally displaced fracture 8 left lateral rib. Old bilateral rib fractures. Small left pneumothorax. Small left pleural effusion. Low-density fluid collection measuring approximately 6 x 1.5 cm adjacent to the ascending aorta and a ortic arch without significant change from the prior CT likely benign. Liver, spleen, pancreas, adrenals, kidneys and bladder do not demonstrate an acute traumatic injury. Renal cysts. Left renal cyst 9.4 cm. Marked prostatic enlargement. Small lipoma within the duodenum. Umbilical hernia contains a loop of nondilated small bowel. The small bowel extends to the skin surfa ce. [id number] left inguinal hernia. Increased density within the fat may indicate inflammation. T here is no evidence of diverticulitis 1.9 cm area sclerosis within the left acetabulum. Follow-up x-ray in 3 months recommended IMPRESSION: Multiple left rib fractures with small left pneumothorax
--- NOTE | 2025-03-03 19:33 | RAD REPORT ---
Procedure: Chest Single View HISTORY: Chest pain COMPARISON: 2022 FINDINGS: Multiple left rib fractures. Patient's known small left pneumothorax is not clearly visualized on this examination. Bilateral interstitial lung opacities appear chronic Heart is moderately enlarged. Pacemaker leads in place. Small left pleural effusion
--- NOTE | 2025-03-03 19:36 | RAD REPORT ---
EXAM:Femur Left CLINICAL HISTORY: Left leg pain FINDINGS: No fracture seen. Left knee arthroplasty. Sclerosis left acetabulum. Please refer to the CT indication Osteoporosis
--- NOTE | 2025-03-03 19:37 | RAD REPORT ---
Exam:Femur Right CLINICAL HISTORY: Right leg pain. FINDINGS: Osteoporosis. No fracture seen.
--- NOTE | 2025-03-03 19:38 | RAD REPORT ---
EXAMINATION: Tib Fib Right CLINICAL INDICATION: Leg pain FINDINGS: Osteoporosis. No fracture visualized.
--- NOTE | 2025-03-03 19:44 | RAD REPORT ---
EXAMINATION: Tib Fib Left CLINICAL INDICATION: Leg pain FINDINGS: Lucency within the distal fibula at ankle probably prominent trabecula. If the patient's clinical sym ptoms to suggest a fracture in this location then dedicated plain film series of the left ankle would be recommended. Otherwise, no fracture noted.
[2025-03-03] MEDS ORDERED: CEFAZOLIN SODIUM 1 GM/VIAL ONE (20:25)
[2025-03-03] MEDS ORDERED: HYDROMORPHONE HCL 1 MG/ML INJ ONE ×2 (20:25→23:28)
[2025-03-03] MEDS ORDERED: TDAP (DIPHTH,PERTUSS(ACELL),TET VAC) 0.5 ML VIAL IMVAC ONE (20:25)
[2025-03-03] MEDS ORDERED: NA CHLORIDE 0.9% 100 ML ONE (20:25)
--- NOTE | 2025-03-03 20:53 | ER ---
Nurse's Notes [facility] Name: Garth Sarkar Age: 84 yrs Sex: Male : 1940 Arrival Date: 03/03/2025 Time: 17:18 Bed 19 Private MD: Diagnosis: Multiple fractures of ribs, left side;Traumatic pneumothorax-left;Fall on same level from slipping, tripping and stumbling with subsequent striking against object;Laceration without foreign body of unspecified part of head Presentation: 03/03 17:22 Chief complaint: EMS states: toned out to pt home for fall. Pt pant leg got caught on ld1 door - tripped and fell. C/O pain to abdomen, head, right chest. Laceration noted to left eyebrow. Pt on eliquis. Coronavirus screen: At this time, the client does not indicate any symptoms associated with coronavirus-19. Ebola Screen: No symptoms or risks identified at this time. Risk Assessment: Do you want to hurt yourself or someone else? Patient reports no desire to harm self or others. Onset of symptoms was March 03, 2025. 17:22 Method Of Arrival: EMS: [facility] ld1 17:22 Acuity: OSBALDO 2 ld1 17:24 Initial Sepsis Screen: Does the patient meet any 2 criteria? No. Patient's initial ld1 sepsis screen is negative. Does the patient have a suspected source of infection? No. Patient's initial sepsis screen is negative. Triage Assessment: 17:27 General: Appears in no apparent distress. comfortable, Behavior is calm, cooperative, ld1 appropriate for age. Historical: - Allergies: 17:24 Codeine; ld1 - PMHx: 17:24 OA; Hypertension; Atrial fibrillation; CHF (cardioversion from A fib); ld1 - PSHx: 17:24 cardioversion from A fib; ld1 - Immunization history:: Adult Immunizations up to date. - Infectious Disease History:: Denies. - Social history:: Smoking status: Patient denies any tobacco usage or history of. Screenin:25 [facility] ED Fall Risk Assessment (Adult) History of falling in the last 3 months, ld1 including since admission Yes- single mechanical fall (1 pt) Confusion or Disorientation No (0 pts) Intoxicated or Sedated No (0 pts) Impaired Gait No (0 pts) Mobility Assist Device Used No (0 pt) Altered Elimination No (0 pt) Score/Fall Risk Level 0 - 2 = Low Risk Oriented to surroundings, Hourly rounding (assess needs \T\ fall precautionary measures) done. Abuse screen: Denies threats or abuse. Denies injuries from another. Nutritional screening: No deficits noted. Tuberculosis screening: No symptoms or risk factors identified. Assessment: 17:25 Reassessment: See triage assessment. Pain: Complains of pain in face, chest and left ld1 arm. 17:45 Derm: Skin abrasions to MAE legs, left heel, left shoulder, left elbow and left hand. ld1 Laceration to left eyebrow. 17:50 Reassessment: Patient appears in no apparent distress at this time. No changes from ld1 previously documented assessment. Patient and/or family updated on plan of care and expected duration. Pain level reassessed. Notified ERP of continued pain. See [facility] for orders. 18:11 Reassessment: Patient appears in no apparent distress at this time. No changes from ld1 previously documented assessment. Patient and/or family updated on plan of care and expected duration. Pain level reassessed. Wound care completed. Pt reports feeling some relief to pain. Will continue to monitor. Family at bedside. 18:51 Reassessment:. ld1 19:00 General: Appears in no apparent distress. uncomfortable, Behavior is calm, cooperative. al5 Pain: Complains of pain in left leg and right leg and left arm and chest and face Pain currently is 9 out of 10 on a pain scale. Neuro: Level of Consciousness is awake, alert, obeys commands, Oriented to person, place, time, situation. Cardiovascular: Capillary refill < 3 seconds Patient's skin is warm and dry. Respiratory: Airway is patent Respiratory effort is even, unlabored, Respiratory pattern is regular, symmetrical. GI: No signs and/or symptoms were reported involving the gastrointestinal system. : No signs and/or symptoms were reported regarding the genitourinary system. EENT: No signs and/or symptoms were reported regarding the EENT system. Derm: skin tear to bilateral legs, left arm. laceration to L side forehead. 20:20 Reassessment: Patient appears in no apparent distress at this time. No changes from al5 previously documented assessment. Patient and/or family updated on plan of care and expected duration. Pain level reassessed. Patient is alert, oriented x 3, equal unlabored respirations, skin warm/dry/pink. pain about a 7/10. 21:45 Reassessment: Patient appears in no apparent distress at this time. Patient and/or al5 family updated on plan of care and expected duration. Pain level reassessed. Patient is alert, oriented x 3, equal unlabored respirations, skin warm/dry/pink. pain 2-3/10 Patient states feeling better. 22:44 Reassessment: Patient appears in no apparent distress at this time. No changes from al5 previously documented assessment. Patient and/or family updated on plan of care and expected duration. Pain level reassessed. Patient is alert, oriented x 3, equal unlabored respirations, skin warm/dry/pink. 03/04 00:29 Reassessment: Patient appears in no apparent distress at this time. No changes from al5 previously documented assessment. Patient and/or family updated on plan of care and expected duration. Pain level reassessed. Patient is alert, oriented x 3, equal unlabored respirations, skin warm/dry/pink. 00:36 Reassessment: gave report to AVERY rothman at [facility]. al5 01:43 Reassessment: Patient appears in no apparent distress at this time. No changes from al5 previously documented assessment. Patient and/or family updated on plan of care and expected duration. Pain level reassessed. Patient is alert, oriented x 3, equal unlabored respirations, skin warm/dry/pink. Vital Signs: 03/03 17:22 BP 109 / 75; Pulse 60; Resp 18; Pulse Ox 99% on R/A; ld1 17:45 BP 141 / 77; Pulse 69; Resp 18; Temp 97.5(TE); Pulse Ox 98% on R/A; Height 5 ft. 10 in. ld1 ; Pain 8/10; 19:00 BP 145 / 69; Pulse 73; Resp 16; Pulse Ox 95% ; al5 20:00 BP 127 / 69; Pulse 67; Resp 14; Pulse Ox 96% on Non-rebreather mask; al5 21:30 BP 125 / 75; Pulse 72; Resp 15; Pulse Ox 100% on Non-rebreather mask; al5 22:00 BP 119 / 81; Pulse 72; Resp 16; Pulse Ox 99% ; al5 23:00 BP 118 / 84; Pulse 67; Resp 16; Pulse Ox 99% on Non-rebreather mask; al5 03/04 00:00 BP 103 / 62; Pulse 78; Resp 14; Pulse Ox 99% on Non-rebreather mask; al5 01:00 BP 107 / 74; Pulse 69; Resp 16; Pulse Ox 99% on Non-rebreather mask; al5 17:45 Pain Scale: Adult ld1 ED Course: 03/03 17:22 Patient arrived in ED. ld1 17:23 Triage completed. ld1 17:24 Maintain EMS IV. Dressing intact. Good blood return noted. Site clean \T\ dry. Gauge \T\ ld 1 site: 18g RAC. 17:25 Vinny Kinney PA is PHCP. cp 17:25 Mercedes Roblero MD is Attending Physician. cp 17:25 No provider procedures requiring assistance completed. ld1 17:25 Patient has correct armband on for positive identification. Placed in gown. Bed in low ld1 position. Call light in reach. Side rails up X2. ekg monitor on. Pulse ox on. NIBP on. Door closed. Noise minimized. Warm blanket given. 17:47 Initial lab(s) drawn, by me, sent to lab. zm 17:48 Basic Metabolic Panel Sent. zm 17:48 CBC with Diff Sent. zm 17:48 LFT's Sent. zm 17:48 PT-INR Sent. zm 17:48 Troponin HS Sent. zm 17:48 Ptt, Activated Sent. zm 18:09 Radiology exam delayed due to lab results not completed at this time. (BUN/Creatinine). nj 18:10 Wound care: to abrasion, located on face, scalp, left ear, chest, right arm, left arm, ld1 right leg and left leg was cleaned with soap and water, soaked in Hibiclens solution, irrigated with normal saline, Patient tolerated well. 18:17 Amadna Quijano, RN is Primary Nurse. ld1 18:46 Head C Spine Mpr Wo Con In Process Unspecified. EDMS 18:49 Chest Abdomen Pelvis W Cont In Process Unspecified. EDMS 18:57 XRAY Chest (1 view) In Process Unspecified. EDMS 18:58 XRAY Femur LEFT In Process Unspecified. EDMS 18:58 XRAY Tib Fib LEFT In Process Unspecified. EDMS 18:58 XRAY Femur RIGHT In Process Unspecified. EDMS 18:58 XRAY Tib Fib RIGHT In Process Unspecified. EDMS 20:51 Dionisio Bran MD is Attending Physician. cp 20:51 Poli Espinal MD is Hospitalizing Provider. cp 21:57 XRAY Ankle LEFT 3 view In Process Unspecified. EDMS 22:39 initiated transfer with [facility] spoke with Tamika uriarte 03/04 00:30 Wound care: to abrasion, located on left leg and right leg and right arm and left arm al5 was dressed with Neosporin, Kerlix, Patient tolerated well. 00:40 Provided Education on: need for transfer. al5 00:58 patient was accepted to [facility] ER per transfer center Dr.Albarado uriarte accepted \T\2340 to ER admin approval Tamika Hutchison RN \T\ 2340 , Transport initiated with [facility] spoke with Ronda patient was accepted. 01:43 Patient transferred, IV remains in place. al5 Administered Medications: 05 18:39 Discontinued: ns 0.9% 500 ml 500 ml IV at 100 ml/hr once cp 17:45 Drug: NS 0.9% IV 500 ml 500 ml IV at 100 ml/hr once Volume: 500 ml; Route: IV; Rate: ld1 100 ml/hr; Site: right antecubital; 18:16 Follow up: Response: No adverse reaction; IV Status: Completed infusion; IV Intake: ld1 500ml 17:50 Drug: fentaNYL (PF) IVP 25 mcg IVP once Route: IVP; Site: right antecubital; ld1 18:16 Follow up: Response: No adverse reaction ld1 18:05 Drug: Ondansetron IVP 4 mg IVP once; over 2 minutes Route: IVP; Site: right antecubital;ld1 18:15 Follow up: Response: No adverse reaction ld1 18:05 Drug: morphine IVP or IV 4 mg IVP once over 4 mins; VERBAL ORDER PER DOV HARRISON ld1 Route: IVP; Infused Over: 4 mins; Site: right antecubital; 18:15 Follow up: Response: No adverse reaction ld1 18:15 Not Given (Other Intervention Used): morphine4 mg IM once; VERBAL ORDER PER lencho HARRISON 19:10 Drug: morphine IVP or IV 4 mg IVP once over 4 mins Route: IVP; Infused Over: 4 mins; al5 Site: right antecubital; 20:20 Follow up: Response: No adverse reaction; No adverse reaction; pain is 7/10 al5 20:25 Drug: Lidocaine Infiltration (2 %) 20 ml 5 ml Infiltration once; with epinephrine al5 {Note: given by provider.} Volume: 5 ml; Route: Infiltration; 20:38 Drug: HYDROmorphone IVP 1 mg IVP once Route: IVP; Site: right antecubital; al5 21:51 Follow up: Response: No adverse reaction; Pain is decreased al5 20:38 Drug: ceFAZolin IVPB 1 grams IVPB once Route: IVPB; Site: right antecubital; al5 21:50 Follow up: Response: No adverse reaction; IV Status: Completed infusion; IV Intake: al5 100ml 20:38 Drug: Boostrix Tdap IM 0.5 ml IM once; as a single dose Route: IM; Site: right deltoid; al5 21:50 Follow up: Response: (VIS) Vaccine information sheet provided today. Questions and/or al5 concerns addressed. VIS edition date: May 28, 2021.; No adverse reaction 23:32 Drug: HYDROmorphone IVP 1 mg IVP once Route: IVP; Site: right antecubital; al5 03/04 00:41 Follow up: Response: No adverse reaction; Pain is decreased al5 Medication: 03/03 17:25 VIS not applicable for this client. ld1 Intake: 18:16 IV: 500ml; Total: 500ml. ld1 21:50 IV: 100ml; Total: 600ml. al5 Outcome: 20:53 Decision to Hospitalize by Provider. cp 21:27 ER care complete, transfer ordered by . 03/04 01:43 Transferred by ground EMS EMS. to [facility], al5 Condition: stable Instructed on the need for transfer, 02:03 Patient left the ED. al5 Signatures: Dispatcher [employer] EDMS Vinny Kinney PA PA cp Jordan, Nathan nj Sims, Lauren, RN RN ld1 Maggie Archer Vivian vk Langhorst, Lina, RN RN al5
--- NOTE | 2025-03-03 20:53 | EDPHYS ---
Physician Documentation [facility] Name: Garth Sarkar Age: 84 yrs Sex: Male : 1940 Arrival Date: 03/03/2025 Time: 17:18 Bed 19 Private MD: ED Physician Dionisio Bran HPI: 03/03 17:33 This 84 yrs old Male presents to ER via EMS with complaints of Fall Injury. cp 17:33 Details of fall: The patient fell from an upright position, while walking, and struck a concrete surface. Onset: The symptoms/episode began/occurred just prior to arrival. 17:33 Associated injuries: The patient sustained injury to the head, laceration, of the cp forehead, injury to the chest, specifically the left lateral anterior chest and left lateral posterior chest, pain with breathing, pain with movement, tenderness. Historical: - Allergies: 17:24 Codeine; ld1 - PMHx: 17:24 OA; Hypertension; Atrial fibrillation; CHF (cardioversion from A fib); ld1 - PSHx: 17:24 cardioversion from A fib; ld1 - Immunization history:: Adult Immunizations up to date. - Infectious Disease History:: Denies. - Social history:: Smoking status: Patient denies any tobacco usage or history of. ROS: 17:35 Constitutional: Negative for body aches, chills, fever, poor PO intake, cp 17:35 Cardiovascular: Positive for chest pain, cp 17:35 Respiratory: Positive for shortness of breath, 17:35 Abdomen/GI: Negative for vomiting, diarrhea, constipation, 17:35 Skin: Positive for multiple, large skin tears to upper and lower extremities, 17:35 Neuro: Negative for altered mental status, dizziness, headache, loss of consciousness, syncope, weakness, 17:35 All other systems are negative, Exam: 17:40 Constitutional: The patient appears in no acute distress, alert, awake, cp non-diaphoretic, well developed, well nourished, uncomfortable, 17:40 Head/face: Noted is a laceration(s), that is deep, that is linear, of the left lower cp forehead, swelling, that is mild, 17:40 Eyes: Periorbital structures: appear normal, Pupils: are fixed and dilated, Extraocular movements: intact throughout, Conjunctiva: normal, no exudate, no injection, Sclera: no appreciated abnormality, Lids and lashes: appear normal, bilaterally, 17:40 ENT: External ear(s): are unremarkable, Nose: is normal, Mouth: Lips: moist, Oral mucosa: moist, Posterior pharynx: Airway: no evidence of obstruction, patent, 17:40 Neck: C-spine: vertebral tenderness, is not appreciated, crepitus, is not appreciated, ROM/movement: pain, is not appreciated, limited range of motion, is not appreciated, 17:40 Chest/axilla: Inspection: mild bruising noted left lateral chest wall, Palpation: tenderness, that is severe, of the left lateral anterior chest and left lateral posterior chest, 17:40 Cardiovascular: Rate: normal, Rhythm: regular, Edema: is not appreciated, JVD: is not appreciated, 17:40 Respiratory: the patient does not display signs of respiratory distress, Respirations: intercostal retractions, are absent, shallow respirations, that is mild, Breath sounds: are clear throughout, no decreased breath sounds, no stridor, no wheezing, 17:40 Abdomen/GI: Inspection: abdomen appears normal, Bowel sounds: active, all quadrants, Palpation: soft, in all quadrants, moderate abdominal tenderness, in the anterior aspect of left lateral abdomen, posterior aspect of left lateral abdomen, left upper quadrant and left lower quadrant, rebound tenderness, is not appreciated, 17:40 Back: vertebral tenderness, is not appreciated, 17:40 Skin: injury, multiple areas of skin tears noted to bilateral upper arms and hands and legs, mild bleeding noted, multiple blisters noted to left hand jewell side, 17:40 Neuro: Orientation: to person, place \T\ time. Mentation: is normal, Motor: moves all fours, strength is normal, Sensation: no obvious gross deficits, 17:58 ECG was reviewed by the Attending Physician. cp Vital Signs: 17:22 BP 109 / 75; Pulse 60; Resp 18; Pulse Ox 99% on R/A; ld1 17:45 BP 141 / 77; Pulse 69; Resp 18; Temp 97.5(TE); Pulse Ox 98% on R/A; Height 5 ft. 10 in. ld1 ; Pain 8/10; 19:00 BP 145 / 69; Pulse 73; Resp 16; Pulse Ox 95% ; al5 20:00 BP 127 / 69; Pulse 67; Resp 14; Pulse Ox 96% on Non-rebreather mask; al5 21:30 BP 125 / 75; Pulse 72; Resp 15; Pulse Ox 100% on Non-rebreather mask; al5 22:00 BP 119 / 81; Pulse 72; Resp 16; Pulse Ox 99% ; al5 23:00 BP 118 / 84; Pulse 67; Resp 16; Pulse Ox 99% on Non-rebreather mask; al5 03/04 00:00 BP 103 / 62; Pulse 78; Resp 14; Pulse Ox 99% on Non-rebreather mask; al5 01:00 BP 107 / 74; Pulse 69; Resp 16; Pulse Ox 99% on Non-rebreather mask; al5 17:45 Pain Scale: Adult ld1 Laceration: 03/03 22:00 Wound Repair of 3.5cm ( 1.4in ) subcutaneous laceration to left lower forehead. Linear cp shaped.. Distal neuro/vascular/tendon intact. Anesthesia: Wound infiltrated with 8 mls of 2% lidocaine. Wound prep: Simple cleansing by nurse. Skin closed with 7 5-0 Prolene using interrupted sutures and sterile technique. Dressed with Bacitracin, 4x4's. Patient tolerated well. MDM: 20:53 Medical Screening Exam initiated 21:30 Data reviewed: vital signs, nurses notes, lab test result(s), EKG, radiologic studies, cp CT scan, plain films. 21:30 I considered the following discharge prescriptions or medication management in the emergency department Medications were administered in the Emergency Department. See MAR. Independent interpretation of the following test(s) in the Emergency Department EKG: See my EKG interpretation above. Counseling: I had a detailed discussion with the patient and/or guardian regarding the historical points, exam findings, and any diagnostic results supporting the discharge/admit diagnosis, lab results, radiology results, the need for further work-up and treatment in the hospital. Response to treatment: the patient's symptoms have mildly improved after treatment. ED course: Discussed results of today's imaging indicating multiple left side rib fractures and pneumothorax. Patient and family request transfer to [facility] in [place] for continued care with initial ask for [facility]. 23:39 ED course: consult with trauma surgery at [facility], DR Matias, who will cp accept patient after discussion. 03/03 17:29 Order name: Basic Metabolic Panel; Complete Time: 18:35 cp 03/03 19:31 Interpretation: Normal except: CL 109; GLUC 150; BUN 21; CRE 1.35; GFR 51. cp / 17:29 Order name: CBC with Diff; Complete Time: 18:35 cp / 19:45 Interpretation: Normal except: WBC 11.70; RBC 4.19; HGB 13.0; HCT 37.6; MPV 7.2; SARA% cp 74.7; LYM% 12.9; NEUT A 8.7. 03/03 17:29 Order name: LFT's; Complete Time: 18:35 cp 03/03 19:48 Interpretation: Normal except: TP 6.3; ALB 3.1; A/G 1.0. cp / 17:29 Order name: PT-INR; Complete Time: 18:35 cp 03/03 17:29 Order name: Troponin HS; Complete Time: 18:35 cp 03/03 17:29 Order name: Ptt, Activated; Complete Time: 18:35 cp 03/03 17:29 Order name: UA Rfx Sandip Cult if indicated; Complete Time: 23:36 cp 03/03 23:36 Interpretation: Normal except: Urine SG > 1.030; UBLD Trace; UPROT TRACE; BYST Trace. 03/03 17:29 Order name: XRAY Chest (1 view); Complete Time: 19:44 cp 03/03 17:29 Order name: XRAY Femur LEFT; Complete Time: 19:44 cp 03/03 19:47 Interpretation: Reviewed. cp 03/03 17:29 Order name: XRAY Tib Fib LEFT; Complete Time: 19:46 cp 03/03 19:47 Interpretation: Report reviewed. cp 03/03 17:29 Order name: XRAY Femur RIGHT; Complete Time: 19:44 cp 03/03 19:48 Interpretation: Report reviewed. cp 03/03 17:29 Order name: XRAY Tib Fib RIGHT; Complete Time: 19:44 cp 03/03 19:48 Interpretation: Report reviewed. cp 03/03 17:58 Order name: Head C Spine Mpr Wo Con; Complete Time: 19:30 EDMS 03/03 19:30 Interpretation: Report reviewed. cp 03/03 18:10 Order name: Chest Abdomen Pelvis W Cont; Complete Time: 19:34 EDMS 03/03 19:36 Interpretation: Report reviewed. cp 03/03 20:01 Order name: XRAY Ankle LEFT 3 view; Complete Time: 22:32 cp / 22:33 Interpretation: Report reviewed. cp 05 17:29 Order name: Cardiac monitoring; Complete Time: 17:47 cp / 17:29 Order name: EKG - Nurse/Tech; Complete Time: 17:47 cp / 17:29 Order name: IV Saline Lock; Complete Time: 17:47 cp 03/03 17:29 Order name: Labs collected and sent; Complete Time: 17:47 cp 03/03 17:29 Order name: O2 Per Protocol; Complete Time: 17:47 cp 03/03 17:29 Order name: O2 Sat Monitoring; Complete Time: 17:47 cp 03/03 17:43 Order name: Dressing - Wound; Complete Time: 18:13 cp 05/ 17:43 Order name: Gloves, Sterile; Complete Time: 18:13 cp 03/03 17:43 Order name: Setup Suture Tray; Complete Time: 18:13 cp EC:58 Rate is 60 beats/min. Rhythm is regular, Paced. CA interval is normal. QRS interval is cp normal. QT interval is normal. T waves are Inverted in leads III, aVR. Interpreted by me. Reviewed by me. Administered Medications: 18:39 Discontinued: ns 0.9% 500 ml 500 ml IV at 100 ml/hr once cp 17:45 Drug: NS 0.9% IV 500 ml 500 ml IV at 100 ml/hr once Volume: 500 ml; Route: IV; Rate: ld1 100 ml/hr; Site: right antecubital; 18:16 Follow up: Response: No adverse reaction; IV Status: Completed infusion; IV Intake: ld1 500ml 17:50 Drug: fentaNYL (PF) IVP 25 mcg IVP once Route: IVP; Site: right antecubital; ld1 18:16 Follow up: Response: No adverse reaction ld1 18:05 Drug: Ondansetron IVP 4 mg IVP once; over 2 minutes Route: IVP; Site: right antecubital;ld1 18:15 Follow up: Response: No adverse reaction ld1 18:05 Drug: morphine IVP or IV 4 mg IVP once over 4 mins; VERBAL ORDER PER DOV HARRISON ld1 Route: IVP; Infused Over: 4 mins; Site: right antecubital; 18:15 Follow up: Response: No adverse reaction ld1 18:15 Not Given (Other Intervention Used): morphine4 mg IM once; VERBAL ORDER PER lencho HARRISON 19:10 Drug: morphine IVP or IV 4 mg IVP once over 4 mins Route: IVP; Infused Over: 4 mins; al5 Site: right antecubital; 20:20 Follow up: Response: No adverse reaction; No adverse reaction; pain is 7/10 al5 20:25 Drug: Lidocaine Infiltration (2 %) 20 ml 5 ml Infiltration once; with epinephrine al5 {Note: given by provider.} Volume: 5 ml; Route: Infiltration; 20:38 Drug: HYDROmorphone IVP 1 mg IVP once Route: IVP; Site: right antecubital; al5 21:51 Follow up: Response: No adverse reaction; Pain is decreased al5 20:38 Drug: ceFAZolin IVPB 1 grams IVPB once Route: IVPB; Site: right antecubital; al5 21:50 Follow up: Response: No adverse reaction; IV Status: Completed infusion; IV Intake: al5 100ml 20:38 Drug: Boostrix Tdap IM 0.5 ml IM once; as a single dose Route: IM; Site: right deltoid; al5 21:50 Follow up: Response: (VIS) Vaccine information sheet provided today. Questions and/or al5 concerns addressed. VIS edition date: May 28, 2021.; No adverse reaction 23:32 Drug: HYDROmorphone IVP 1 mg IVP once Route: IVP; Site: right antecubital; al5 03/04 00:41 Follow up: Response: No adverse reaction; Pain is decreased al5 Disposition: 19:56 Co-signature as Attending Physician, Dionisio Bran MD I agree with the assessment sp4 and plan of care. I reviewed the patient's care provided by the Advanced Practice Provider and agree with the diagnosis and treatment plan. 20:08 Chart complete. cp Disposition Summary: 03/03/25 21:27 Transfer Ordered Notes: Reason: Higher level of care cp Condition: Stable(03/03/25 21:27) cp Problem: new(03/03/25 21:27) cp Symptoms: have improved(03/03/25 21:27) cp Transfer Location: [facility](03/03/25 22:56) cp Accepting Physician: doctor(03/04/25 02:03) al5 Diagnosis - Multiple fractures of ribs, left side(03/03/25 21:27) cp - Traumatic pneumothorax - left(03/03/25 21:27) cp - Fall on same level from slipping, tripping and stumbling with subsequent striking cp against object(03/03/25 22:56) - Laceration without foreign body of unspecified part of head(03/03/25 22:56) cp Forms: - Medication Reconciliation Form cp - SBAR form cp Critical care time excluding procedures: 20:08 Critical care time: Bedside Care: 10 minutes, Consultation: 30 minutes, Family cp Intervention: 10 minutes. Total time: 50 minutes Signatures: Dispatcher [employer] EDMS Vinny Kinney PA PA cp Sims, Lauren, RN RN ld1 Dionisio Bran MD MD sp4 Lina Vega RN RN al5 Corrections: (The following items were deleted from the chart) 03/03 17:30 17:30 BASIC METABOLIC PANEL+C.LAB.BRZ ordered. EDMS EDMS 17:30 17:30 CBC+H.LAB.BRZ ordered. EDMS EDMS 17:30 17:30 HEPATIC FUNCTION+C.LAB.BRZ ordered. EDMS EDMS 17:30 17:30 PROTIME (+INR)+COAG.LAB.BRZ ordered. EDMS EDMS 17:30 17:30 Troponin High Sensitivity+C.LAB.BRZ ordered. EDMS EDMS 17:30 17:30 PTT, ACTIVATED+COAG.LAB.BRZ ordered. EDMS EDMS 17:30 17:30 UA Rfx Sandip Cult if indicated+U.LAB.BRZ ordered. EDMS EDMS 17:30 17:30 Chest Single View+RAD.RAD.BRZ ordered. EDMS EDMS 17:30 17:30 Head C Spine CAP W Con+CT.RAD.BRZ ordered. EDMS EDMS 17:30 17:30 Femur Left+RAD.RAD.BRZ ordered. EDMS EDMS 17:30 17:30 Tib Fib Left+RAD.RAD.BRZ ordered. EDMS EDMS 17:30 17:30 Femur Right+RAD.RAD.BRZ ordered. EDMS EDMS 17:30 17:30 Tib Fib Right+RAD.RAD.BRZ ordered. EDMS EDMS 21:26 20:53 Inpatient Admission cp cp : 20:53 Poli Espinal cp cp 21: 20:53 Intensive Care Unit cp cp : 20:53 Stable cp cp : 20:53 new cp cp : 20:53 have improved cp cp : 20:53 Standard cp cp : 20:53 cp cp : 20:53 Laceration without foreign body of unspecified part of head cp cp : 20:53 Multiple fractures of ribs, left side cp cp : 20:53 Traumatic pneumothorax - left cp cp : 20:53 Fall on same level from slipping, tripping and stumbling with subsequent striking cp against object cp 22:56 21:27 doctor cp cp 22:56 21:27 [employer] cp cp 03/04 02:03 05 22:56 doctor cp al5
--- NOTE | 2025-03-03 22:00 | RAD REPORT ---
Exam:Ankle Left 3 View HISTORY: left ankle pain FINDINGS: No fracture or dislocation is seen
[2025-03-03 23:02] LABS: Specific Gravity > 1.030 (1.005-1.030); Sqamous Epithelial None Seen /HPF (None Seen); Urine Bacteria None Seen /HPF (<20); Urine Bilirubin NEGATIVE (Negative); Urine Blood Trace (Negative); Urine Clarity Clear (Clear); Urine Color Light-Yellow (Yellow); Urine Crystals Unidentified Few /HPF (None Seen); Urine Culture Reflex Order NOT NEEDED; Urine Glucose NEGATIVE (Negative); Urine Ketones NEGATIVE (Negative); Urine Microscopic Reflex YN ORDER UMIC; Urine Mucus Slight /HPF (None Seen); Urine Nitrite NEGATIVE (Negative); Urine Protein TRACE (Negative); Urine RBC <5 /HPF (None Seen); Urine Urobilinogen Normal (Normal); Urine WBC <5 /HPF (<5); Urine Yeast (Budding) Trace /HPF (None Seen); Urine pH 5.5 (5.0-7.0)
[2025-03-04 02:09] VITALS: TEMP 97.5
[2025-03-04 02:13] VITALS: O2SAT 99
[2025-03-04 02:17] VITALS: BP 107/74
--- NOTE | 2025-03-05 12:24 | EKG ---
Test Date: 2025-03-03 Test Time: 17:51:15 Washer Off: JONATHON MEASUREMENT RESULTS: Intervals: Rate: 60 WA: 166 QRSD: 90 QT: 480 QTc: 480 [place]: P: 82 WA: 166 QRS: 8 T: 32 INTERPRETIVE STATEMENTS: Atrial-paced rhythm Inferior infarct, age undetermined Abnormal ECG Compared to ECG 02/19/2023 17:52:19 Myocardial infarct finding now present Atrial fibrillation no longer present ST (T wave) deviation no longer present T-wave abnormality no longer present Prolonged QT interval no longer present Electronically Signed On 03-05-25 12:21:26 CDT by David Medina
== END 2025-03-04 02:03 | disposition short-term general hospital (02) ==
LOC: ER 17:18
DX: S22.42XA Multiple fractures of ribs, left side, initial encounter for closed fracture (principal); S27.0XXA Traumatic pneumothorax, initial encounter; S01.81XA Laceration without foreign body of other part of head, initial encounter; W01.198A Fall on same level from slipping, tripping and stumbling with subsequent striking against other object, initial encounter; Z23 Encounter for immunization
CPT/HCPCS: 96365; 96361; 93005; 85025; 81001; 80048; 36415; 85610; 80076; 85730; 84484; 70450; 72125; 71260; 74177; 71045; 73552 ×2; 73590 ×2; 73610; 90715; 96375; 96372; 99285; 12013; Q9967; J3010; J1171 ×2; J2405; J7030; J0690